=== PATIENT | male | born 1935 | race Caucasian/White ===

== ENCOUNTER → 2018-03-16 12:13 | Outpatient (CLI) | payer MEDICARE, SELFPAY ==
[2018-03-16 14:09] LABS: Amphetamine Urine VISTA NEGATIVE (<1000 ng/mL); Barbiturate Urine VISTA NEGATIVE (< 200 ng/mL); Benzodiazepine Urine VISTA NEGATIVE (< 200 ng/mL); Cocaine Urine VISTA NEGATIVE (< 300 ng/mL); Ecstacy Urine VISTA NEGATIVE (< 500 ng/mL); Methadone Urine VISTA NEGATIVE (< 300 ng/mL); PCP Urine VISTA NEGATIVE (< 25 ng/mL); THC Urine VISTA NEGATIVE (< 50 ng/mL); Vista UDS pH Range 6
== END ==
PROVIDERS: Family Provider Family Medicine; PCP Family Medicine; Visit Provider Family Medicine
DX: Z79.891 Long term (current) use of opiate analgesic (principal)
CPT/HCPCS: 80307

== ENCOUNTER → 2019-03-10 12:30 | Outpatient (CLI) | payer MEDICARE, SELFPAY ==
[2019-03-10 13:10] LABS: Cholesterol 141 mg/dL (200); High Density Lipoprotein 49 mg/dL; Triglycerides 159 mg/dL; Very Low Density Lipoprotein 32 mg/dL (5-40)
== END ==
PROVIDERS: Family Provider Family Medicine; PCP Family Medicine; Referring Provider Family Medicine; Visit Provider Family Medicine
DX: E78.5 Hyperlipidemia, unspecified (principal)
CPT/HCPCS: 80061

== ENCOUNTER 2019-10-30 16:06 | Emergency (ER) | payer MEDICARE, SELFPAY ==
[2019-10-30 16:07] VITALS: BP 145/76; PULSE 103; RESP 17; TEMP 36.8; O2SAT 96; BMI 21.2
--- NOTE | 2019-10-30 16:26 | CT_ITS ---
STUDY: CT BRAIN WITHOUT CONTRAST REASON FOR EXAM: Male, 84 years old. FALL WITH BUMP TO LEFT FOREHEAD, DEMENTIA RADIATION DOSAGE (If Supplied By Facility): CTDIvol = ( 44.99 ) mGy, DLP = ( 745.49 ) mGycm TECHNIQUE: Transaxial CT imaging of the brain was performed without administration of intravenous contrast material. Individualized dose optimization techniques were used for this CT. COMPARISON: No relevant priors. FINDINGS: There is mild subcutaneous edema overlying the left frontal calvarium. Normal calvarium. There is mild cerebral atrophy with widening of the extra-axial spaces and ventricular dilatation. Normal white matter tracts of the cerebral hemispheres. 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 Normal brainstem. There is mild cerebellar atrophy. There is no intracranial hemorrhage. There are no findings of an acute ischemic infarction. Normal visualized paranasal sinuses. CT/Brain/Head without Contrast IMPRESSION: Chronic involutional changes of the brain. No acute intracranial process. Electronically Signed: Nita Woodall MD at 16:48 EDT Tel , Service support ,
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
[2019-10-30] MEDS: Diphth,Pertuss(Acell),Tet Vac 0.5 ML Vial IM (16:44)
[2019-10-30] MEDS: Acetaminophen 500 MG Tablet 1000 MG PO (16:44)
--- NOTE | 2019-10-30 17:08 | ED.RN ---
PT RIGHT ARM WASHED WITH SHUR CLENS AND NORMAL SALINE, PATTED DRY. TINCTURE AND STERI STRIPS APPLIED TO SKIN TEAR. PT TOLERATED WELL. PT ARM THEN WRAPPED WITH TELFA, WRAP GAUZE AND PAPER TAPE. PT EDUCATED ON DRESSING CARE AT HOME, AND TO LEAVE STERI STRIPS IN PLACE UNTIL THEY BEGIN TO COME OFF ON THERE OWN. PT FOREHEAD ALSO CLEANSED WITH SHUR CLENS AND NORMAL SALINE. PATTED DRY. BACITRACIN APPLIED TO FOREHEAD AND THEN FOREHEAD WRAPPED WITH TELFA AND GAUZE WRAP AND PAPER TAPE.
[2019-10-30 17:27] VITALS: BP 155/83; PULSE 88; O2SAT 100
== END 2019-10-30 17:31 | disposition home or self-care (01) ==
PROVIDERS: Emergency Provider Emergency Medicine; PCP Family Medicine
DX: S00.81XA Abrasion of other part of head, initial encounter (principal); S80.211A Abrasion, right knee, initial encounter; S51.011A Laceration without foreign body of right elbow, initial encounter; W18.30XA Fall on same level, unspecified, initial encounter; Y93.02 Activity, running; Y92.410 Unspecified street and highway as the place of occurrence of the external cause; Y99.8 Other external cause status; F03.90 Unspecified dementia, unspecified severity, without behavioral disturbance, psychotic disturbance, mood disturbance, and anxiety; R21 Rash and other nonspecific skin eruption; Z23 Encounter for immunization; N40.0 Benign prostatic hyperplasia without lower urinary tract symptoms; I10 Essential (primary) hypertension; E78.5 Hyperlipidemia, unspecified; M54.16 Radiculopathy, lumbar region
CPT/HCPCS: 70450; 90471; 90715; 99282

== ENCOUNTER → 2019-12-20 10:53 | Outpatient (CLI) | payer MEDICARE, SELFPAY ==
[2019-12-20 11:13] LABS: Hematocrit 46.5 % (40-54); Hemoglobin 15.5 g/dL (13.0-16.5); Mean Corp Hgb Conc 33.3 g/dL (32-36); Mean Corpuscular Hgb 31.7 pg (27.0-32.0); Mean Corpuscular Volume 95.1 fL (80-94); Mean Platelet Vol. 10.1 fl (6.2-12.0); Platelet Count 237 K/mm3 (150-450); RBC Distribution Width SD 45.1 fl (35.1-43.9); Red Blood Count 4.89 M/mm3 (4.6-6.2); White Blood Count 8.7 K/mm3 (4.4-11.0)
[2019-12-20 11:33] LABS: ALB/GLOB Ratio 1.2 RATIO (0.9-2.4); AST(SGOT) 17 U/L (15-37); Alanine Aminotransfer ALT/SGPT 22 U/L (16-61); Albumin, Serum 3.5 g/dL (3.2-5.0); Alkaline Phosphatase 97 U/L (45-117); Anion Gap 6 (5-15); BUN 20 mg/dL (7-18); BUN/Creat Ratio 17.9 RATIO (10-20); Calcium,Total 8.7 mg/dL (8.5-10.1); Chloride 106 mmol/L (98-107); Creatinine, Serum 1.12 mg/dL (0.70-1.30); EST Glomerular Filtration Rate 67 mL/min (>60); Est Glom Filt Rate - Afr Amer 81 mL/min (>60); Glucose 101 mg/dL (74-106); Potassium 3.5 mmol/L (3.5-5.1); Protein, Total 6.5 g/dL (6.4-8.2); Sodium Level 141 mmol/L (136-145)
== END ==
PROVIDERS: PCP Family Medicine; Referring Provider Nurse Practitioner Family; Visit Provider Nurse Practitioner Family
DX: M51.16 Intervertebral disc disorders with radiculopathy, lumbar region (principal); M48.062 Spinal stenosis, lumbar region with neurogenic claudication; Z51.81 Encounter for therapeutic drug level monitoring
CPT/HCPCS: 80053; 85027

== ENCOUNTER → 2020-03-02 16:50 | Outpatient (CLI) | payer MEDICARE, SELFPAY ==
[2020-03-02 17:23] LABS: Amphetamine Urine VISTA NEGATIVE (<1000 ng/mL); Barbiturate Urine VISTA NEGATIVE (< 200 ng/mL); Benzodiazepine Urine VISTA NEGATIVE (< 200 ng/mL); Cocaine Urine VISTA NEGATIVE (< 300 ng/mL); Ecstacy Urine VISTA NEGATIVE (< 500 ng/mL); Methadone Urine VISTA NEGATIVE (< 300 ng/mL); PCP Urine VISTA NEGATIVE (< 25 ng/mL); THC Urine VISTA NEGATIVE (< 50 ng/mL); Vista UDS pH Range 6
== END ==
PROVIDERS: PCP Family Medicine; Referring Provider Family Medicine; Visit Provider Family Medicine
DX: Z79.891 Long term (current) use of opiate analgesic (principal); Z79.899 Other long term (current) drug therapy
CPT/HCPCS: 80307

== ENCOUNTER 2020-03-22 20:09 | Emergency (ER) | payer MEDICARE, SELFPAY ==
[2020-03-22 20:10] VITALS: BP 135/92; PULSE 78; RESP 16; TEMP 36.6; O2SAT 98; BMI 21.3
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
[2020-03-22] MEDS: Diphth,Pertuss(Acell),Tet Vac 0.5 ML Vial IM (21:33)
[2020-03-22 22:27] VITALS: BP 178/87; PULSE 81; RESP 18
== END 2020-03-22 22:29 | disposition home or self-care (01) ==
PROVIDERS: Emergency Provider Emergency Medicine; PCP Family Medicine
DX: S51.811A Laceration without foreign body of right forearm, initial encounter (principal); V43.52XA Car driver injured in collision with other type car in traffic accident, initial encounter; Y92.410 Unspecified street and highway as the place of occurrence of the external cause; E78.5 Hyperlipidemia, unspecified; F03.90 Unspecified dementia, unspecified severity, without behavioral disturbance, psychotic disturbance, mood disturbance, and anxiety; I10 Essential (primary) hypertension; N40.0 Benign prostatic hyperplasia without lower urinary tract symptoms; Z87.891 Personal history of nicotine dependence
CPT/HCPCS: 90471; 90715; 99284

== ENCOUNTER → 2020-08-13 10:06 | Outpatient (CLI) | payer MEDICARE, SELFPAY | PROVIDERS: PCP Family Medicine; Referring Provider Family Medicine; Visit Provider Family Medicine | DX: Z20.828 Contact with and (suspected) exposure to other viral communicable diseases (principal) | CPT/HCPCS: 87635; C9803; U0005; U0003 ==

== ENCOUNTER 2020-08-31 12:48 | Outpatient (RCR) | payer MEDICARE, SELFPAY | END 2020-08-31 23:59 | LOC: IMMUN 12:48 | PROVIDERS: PCP Family Medicine; Visit Provider Family Medicine | DX: Z23 Encounter for immunization (principal) | CPT/HCPCS: 0011A; 0012A; 91301 ==

== ENCOUNTER 2020-09-25 18:44 | Inpatient (IN) | payer MEDICARE, SELFPAY ==
[2020-09-25 18:46] VITALS: BP 116/72; PULSE 82; RESP 16; TEMP 36.2; O2SAT 96; BMI 20.4
[2020-09-25 18:50] VITALS: BP 116/72; PULSE 82; RESP 18; TEMP 36.2; O2SAT 96
--- NOTE | 2020-09-25 20:00 | ED.VIS.GEN ---
History of Present Illness Chief Complaint: ETOH Intox Informant: Patient, Family Narrative: Patient presents with family requesting detox from alcohol. Patient's is also here being seen for the same. Patient does have a history of dementia that family states has been getting worse lately. He does drink 3 Manhattan's a day. Patient states he does not remember the last time he went without drinking. He is never been through detox or withdrawal in the past. - Past Medical History (1) Benign prostatic hypertrophy Status: Chronic (2) Hyperlipidemia Status: Chronic (3) Hypertension Status: Chronic (4) Mild dementia Status: Chronic Past Medical History - Allergies and Home Meds Allergies/Adverse Reactions: Allergies No Known Allergies Allergy (Verified 03/22/20 20:14) Primary Care Physician: Ike Vaughn III, MD [Primary Care Provider] - Prior records reviewed: Yes Lives: Spouse/ Significant Other Smoking Status: Former smoker Review of Systems General: Denies: Chills, Fever Eyes: Denies: Visual changes - bilaterally ENT: Denies: Bilateral ear pain Cardiovascular: Denies: Chest pain, Palpitations Respiratory: Denies: Dyspnea, Cough Gastrointestinal: Denies: Abdominal pain, Vomiting, Diarrhea Genitourinary: Denies: Dysuria Musculoskeletal: Denies: Swelling, Extremity Pain Skin: Denies: Rash Neurological: Denies: Headache Hematologic: Denies: Easy bruising, Easy bleeding Allergy: Denies: Uticaria Physical Exam Vital Signs/Narrative: Vital Signs Temp Pulse Resp BP Pulse Ox 09/25/20 18:50 97.2 F L 82 18 116/72 96 09/25/20 18:46 97.2 F L 82 16 116/72 96 Inital Vital Signs reviewed: Yes General: Well nourished, Well developed Head: Normocephalic ENT: Moist mucous membranes Neck: Supple Cardiovascular: Regular rate, Regular rhythm Respiratory: No distress, CTA bilaterally Abdomen: Soft, Nontender, Normal bowel sounds Extremities: Nontender Skin: Normal color Neurological: Alert, Oriented x3, - - No focal neurologic deficits. Psychological: Normal affect Diagnostic/Tx/Re-eval Laboratory Results 09/25/20 09/25/20 09/25/20 20:06 20:06 20:06 WBC 8.4 RBC 4.64 Hgb 15.2 Hct 44.9 MCV 96.8 H MCH 32.8 H MCHC 33.9 RDW Std Deviation 44.1 H RDW Coeff of Shannon 12.5 Plt Count 203 MPV 9.9 Immature Gran % (Auto) 0.200 Neut % (Auto) 43.2 L Lymph % (Auto) 45.0 H Spencer % (Auto) 8.4 Eos % (Auto) 2.7 Baso % (Auto) 0.5 Absolute Neuts (auto) 3.6 Absolute Lymphs (auto) 3.79 Nucleated RBC % 0 Sodium 140 Potassium 3.3 L Chloride 103 Carbon Dioxide 31.0 Anion Gap 6 BUN 21 H Creatinine 1.27 Estim Creat Clear Calc 35.15 Est GFR (MDRD) Af Amer 70 Est GFR (MDRD) Non-Af 57 L BUN/Creatinine Ratio 16.5 Glucose 73 L Calcium 8.8 Total Bilirubin 1.00 AST 19 ALT 19 Alkaline Phosphatase 115 Total Protein 6.8 Albumin 3.9 Globulin 2.9 Albumin/Globulin Ratio 1.3 Ur Drug Screen Comment Ethyl Alcohol < 3.0 09/25/20 20:20 WBC RBC Hgb Hct MCV MCH MCHC RDW Std Deviation RDW Coeff of Shannon Plt Count MPV Immature Gran % (Auto) Neut % (Auto) Lymph % (Auto) Spencer % (Auto) Eos % (Auto) Baso % (Auto) Absolute Neuts (auto) Absolute Lymphs (auto) Nucleated RBC % Sodium Potassium Chloride Carbon Dioxide Anion Gap BUN Creatinine Estim Creat Clear Calc Est GFR (MDRD) Af Amer Est GFR (MDRD) Non-Af BUN/Creatinine Ratio Glucose Calcium Total Bilirubin AST ALT Alkaline Phosphatase Total Protein Albumin Globulin Albumin/Globulin Ratio Ur Drug Screen Comment Ethyl Alcohol - Medical Decision Making Patient evaluated with daughter at bedside. He does have mild to moderate dementia. is being seen for alcohol intoxication and admitted for detox. Patient has agreed to admission for detox as well. Addiction medicine labs are ordered and patient is discussed with hospitalist for admission. ED Disposition - Plan for ED Patient: Disposition: Acute Care Hospital [facility] Diagnosis: Desire for detoxification Referrals: Ike Vaughn III, MD [Primary Care Provider] -
[2020-09-25 20:21] LABS: Absolute Lymphocyte Count 3.79 X10^3/uL (0.83-4.51); Absolute Neutrophil Count 3.6 X10^3/uL (2.0-7.7); Basophil# 0.04 X10^3/uL; Basophil% 0.5 % (0-1); Eosinophil# 0.23 X10^3/uL; Eosinophils% 2.7 % (0-5); Hematocrit 44.9 % (40-54); Hemoglobin 15.2 g/dL (13.0-16.5); Lymphocyte # 3.79 X10^3/ul (4.0); Mean Corp Hgb Conc 33.9 g/dL (32-36); Mean Corpuscular Hgb 32.8 pg (27.0-32.0); Mean Corpuscular Volume 96.8 fL (80-94); Mean Platelet Vol. 9.9 fl (6.2-12.0); Monocyte# 0.71 X10^3/uL; Monocyte% 8.4 % (0-10); NRBC Flagged by Analyzer 0 % (0-5); Neutrophil # 3.64 X10^3/uL (2.7-7.7); Neutrophil % 43.2 % (47-70); Platelet Count 203 K/mm3 (150-450); RBC Distribution Width CV 12.5 % (11.6-14.6); RBC Distribution Width SD 44.1 fl (35.1-43.9); Red Blood Count 4.64 M/mm3 (4.6-6.2); White Blood Count 8.4 K/mm3 (4.4-11.0)
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
[2020-09-25 20:34] LABS: Alcohol, Blood (Medical)-Serum < 3.0 mg/dL
[2020-09-25 20:39] LABS: ALB/GLOB Ratio 1.3 RATIO (0.9-2.4); AST(SGOT) 19 U/L (15-37); Alanine Aminotransfer ALT/SGPT 19 U/L (16-61); Albumin, Serum 3.9 g/dL (3.2-5.0); Alkaline Phosphatase 115 U/L (45-117); Anion Gap 6 (5-15); BUN 21 mg/dL (7-18); BUN/Creat Ratio 16.5 RATIO (10-20); Calcium,Total 8.8 mg/dL (8.5-10.1); Chloride 103 mmol/L (98-107); Creatinine, Serum 1.27 mg/dL (0.70-1.30); EST Glomerular Filtration Rate 57 mL/min (>60); Est Glom Filt Rate - Afr Amer 70 mL/min (>60); Estimated Creatinine Clearance 35.15 ml/min; Globulin 2.9 g/dL (2.2-4.2); Glucose 73 mg/dL (74-106); Potassium 3.3 mmol/L (3.5-5.1); Protein, Total 6.8 g/dL (6.4-8.2); Sodium Level 140 mmol/L (136-145)
[2020-09-25 21:11] LABS: Amphetamine Urine VISTA NEGATIVE (<1000 ng/mL); Barbiturate Urine VISTA NEGATIVE (< 200 ng/mL); Benzodiazepine Urine VISTA NEGATIVE (< 200 ng/mL); Cocaine Urine VISTA NEGATIVE (< 300 ng/mL); Ecstacy Urine VISTA NEGATIVE (< 500 ng/mL); Methadone Urine VISTA NEGATIVE (< 300 ng/mL); PCP Urine VISTA NEGATIVE (< 25 ng/mL); THC Urine VISTA NEGATIVE (< 50 ng/mL); Vista UDS pH Range 5
[2020-09-25 21:44] VITALS: BP 115/78; PULSE 78; RESP 16; TEMP 36.6; O2SAT 97
[2020-09-25 22:34] VITALS: BP 147/74; PULSE 72; RESP 16; TEMP 35.9; O2SAT 100; BMI 19.8; BMI 19.9
[2020-09-25] MEDS: Phenobarbital 32.4 MG Tablet 64.8 MG PO (22:50)
[2020-09-25 22:57] LABS: Magnesium 2.1 mg/dL (1.6-2.6); Phosphorus 3.6 mg/dL (2.5-4.9)
[2020-09-25] MEDS: Lactated Ringers 1,000 ML 125 ML IV (23:00)
[2020-09-25 23:24] VITALS: O2SAT 98
[2020-09-26] VITALS (8 sets, daily range): BP systolic 101–139; BP diastolic 59–71; PULSE 68–84; RESP 16–18; TEMP 36.1–36.9; O2SAT 95–97
[2020-09-26] MEDS: Potassium Chloride Oral Tablet 20 MEQ 40 MEQ PO (00:03)
[2020-09-26] MEDS: Atorvastatin Calcium 20 MG Tablet PO ×2 (00:03→21:19)
--- NOTE | 2020-09-26 05:55 | EKG12_ITS ---
Test Reason : AM EKG Blood Pressure : / mmHG Vent. Rate : 074 BPM Atrial Rate : 074 BPM P-R Int : 162 ms QRS Dur : 090 ms QT Int : 450 ms P-R-T Axes : 034 043 053 degrees QTc Int : 499 ms Normal sinus rhythm Prolonged QT Abnormal ECG When compared with ECG of 27-FEB-2005 04:52, T wave inversion no longer evident in Inferior leads Nonspecific T wave abnormality no longer evident in Lateral leads QT has lengthened Confirmed by VINCENT HUA, SEGUNDO ([id number]), material expeditor MATT TILLEY ([id number]) on 09/26/2020 12:57:00 P M Referred By: SHEILA Confirmed By:OLIVE KAUR MD
[2020-09-26] MEDS: Phenobarbital 32.4 MG Tablet 64.8 MG PO (06:56)
[2020-09-26 08:05] LABS: ALB/GLOB Ratio 1.2 RATIO (0.9-2.4); AST(SGOT) 17 U/L (15-37); Alanine Aminotransfer ALT/SGPT 14 U/L (16-61); Albumin, Serum 3.1 g/dL (3.2-5.0); Alkaline Phosphatase 94 U/L (45-117); Anion Gap 8 (5-15); BUN 21 mg/dL (7-18); BUN/Creat Ratio 18.9 RATIO (10-20); Calcium,Total 8.4 mg/dL (8.5-10.1); Chloride 107 mmol/L (98-107); Creatinine, Serum 1.11 mg/dL (0.70-1.30); EST Glomerular Filtration Rate 67 mL/min (>60); Est Glom Filt Rate - Afr Amer 81 mL/min (>60); Globulin 2.5 g/dL (2.2-4.2); Glucose 67 mg/dL (74-106); Potassium 3.6 mmol/L (3.5-5.1); Protein, Total 5.6 g/dL (6.4-8.2); Sodium Level 140 mmol/L (136-145)
--- NOTE | 2020-09-26 08:08 | PCM.PN.HOSP ---
Patient Problems: Active and Suspected Problems Desire for detoxification (Acute) Reason for Visit: Follow-up for acute alcohol withdrawal. Objective: Patient has mild dementia. Patient is not clear why he is in being admitted. He denies any obvious symptoms of alcohol withdrawal including tremors, restlessness, anxiety. He states he drinks about 1-2 bottles of beer once in 2 to 3 days and 2-3 shots of whiskey almost every day. His is also admitted for similar alcohol withdrawal. Physical exam General: Alert, Oriented x3, Cooperative HEENT: Atraumatic, PERRLA, EOMI, Normocephalic Oral: No Gingival or Mucosal Lesions/ Ulcerations Neck: Supple, No JVD, Negative Carotid Bruits Lungs: Air entry diminished in bilateral lung bases. No crepitation/rhonchi Cardiovascular: Regular rate, Regular Rhythm, Normal S1, Normal S2, No murmurs Abdomen: Bowel Sounds Present, Soft, Non Tender, Non-Distended : No renal angle tenderness. No suprapubic tenderness. Extremities: No edema, Capillary Refill Less than 3 Seconds Skin: No rashes, No breakdown Musculoskeletal: No Tenderness to Palpation of Joints or Extremities Neurological: Cranial nerves II-XII grossly intact, Deep Tendon Reflexes 2+/4 and Symmetrical, Neuro grossly intact. No tremors Psych/Mental Status: Normal Affect, Appropriate. Vitals/I&O's: Vital Signs Temp Pulse Resp BP Pulse Ox 97 F L 69 16 139/71 H 96 09/26/20 04:30 09/26/20 04:30 09/26/20 04:30 09/26/20 04:30 09/26/20 04:30 Oxygen Delivery Method Room Air Weight: 123 lb 0.287 oz Body Mass Index (BMI) 19.8 Intake and Output for Last 24 Hours 09/24/20 09/25/20 09/26/20 23:59 23:59 23:59 Intake Total 1151.67 / 1151.67 Balance 1151.67 / 1151.67 Laboratory Results 09/25/20 20:06: WBC 8.4, RBC 4.64, Hgb 15.2, Hct 44.9, MCV 96.8 H, MCH 32.8 H, MCHC 33.9, RDW Std Deviation 44.1 H, RDW Coeff of Shannon 12.5, Plt Count 203, MPV 9.9, Immature Gran % (Auto) 0.200, Neut % (Auto) 43.2 L, Lymph % (Auto) 45.0 H, Worth % (Auto) 8.4, Eos % (Auto) 2.7, Baso % (Auto) 0.5, Absolute Neuts (auto) 3.6, Absolute Lymphs (auto) 3.79, Nucleated RBC % 0 09/25/20 20:06: Sodium 140, Potassium 3.3 L, Chloride 103, Carbon Dioxide 31.0, Anion Gap 6, BUN 21 H, Creatinine 1.27, Estim Creat Clear Calc 35.15, Est GFR (MDRD) Af Amer 70, Est GFR (MDRD) Non-Af 57 L, BUN/Creatinine Ratio 16.5, Glucose 73 L, Calcium 8.8, Total Bilirubin 1.00, AST 19, ALT 19, Alkaline Phosphatase 115, Total Protein 6.8, Albumin 3.9, Globulin 2.9, Albumin/Globulin Ratio 1.3 09/25/20 20:06: Ethyl Alcohol < 3.0 09/25/20 20:06: Phosphorus 3.6, Magnesium 2.1 09/25/20 20:20: Urine Opiates Screen NEGATIVE, Urine Methadone Screen NEGATIVE, Ur Barbiturates Screen NEGATIVE, Ur Phencyclidine Scrn NEGATIVE, Ur Amphetamines Screen NEGATIVE, U Methamphetamin-MDMA NEGATIVE, U Benzodiazepines Scrn NEGATIVE, Urine Cocaine Screen NEGATIVE, U Cannabinoids Screen NEGATIVE, Ur Drug Screen Comment 09/26/20 06:24: Sodium 140, Potassium 3.6, Chloride 107, Carbon Dioxide 25.0, Anion Gap 8, BUN 21 H, Creatinine 1.11, Estim Creat Clear Calc 39.10, Est GFR (MDRD) Af Amer 81, Est GFR (MDRD) Non-Af 67, BUN/Creatinine Ratio 18.9, Glucose 67 L, Calcium 8.4 L, Total Bilirubin 1.40 H, AST 17, ALT 14 L, Alkaline Phosphatase 94, Total Protein 5.6 L, Albumin 3.1 L, Globulin 2.5, Albumin/Globulin Ratio 1.2 Current Medications Acetaminophen (Acetaminophen 325 Mg Tablet) 650 mg PO Q4H PRN PRN PRN Reason: Temp > 100.4 F Al Hydroxide/Mg Hydroxide (Mag Hydrox/Al Hydrox/Simeth 30 Ml Udc) 30 ml PO Q6H PRN PRN PRN Reason: dyspesia Albuterol Sulfate (Albuterol 2.5 Mg/3 Ml Vial.Neb.) 2.5 mg INHALATION Q2H PRN PRN PRN Reason: Dyspnea, wheezing Atorvastatin Calcium (Atorvastatin Calcium 20 Mg Tablet) 20 mg PO QHS [facility] Last Admin: 09/26/20 00:03 Dose: 20 mg Documented by: Bisacodyl (Bisacodyl 10 Mg Suppository) 10 mg RC DAILY PRN PRN Reason: Constipation Dicyclomine HCl (Dicyclomine 10 Mg Capsule) 20 mg PO Q6H PRN PRN PRN Reason: abdominal discomfort Donepezil HCl (Donepezil Hcl 10 Mg Tablet) 10 mg PO DAILY [facility] Enoxaparin Sodium (Enoxaparin 40 Mg/0.4 Ml Syringe) 40 mg SC DAILY [facility] Finasteride (Finasteride 5 Mg Tablet) 5 mg PO DAILY [facility] Folic Acid (Folic Acid 1 Mg Tablet) 1 mg PO DAILY@0800 [facility] Gabapentin (Gabapentin 300 Mg Capsule) 200 mg PO Q8H PRN PRN PRN Reason: moderate to severe anxiety Hydralazine HCl (Hydralazine 20 Mg/Ml Vial) 10 mg IV Q4H PRN PRN PRN Reason: SBP > 160 Hydrochlorothiazide (Hydrochlorothiazide 12.5mg) 12.5 mg PO DAILY [facility] Hydroxyzine Pamoate (Hydroxyzine Suzanne 25 Mg Capsule) 50 mg PO Q4H PRN PRN PRN Reason: mild anxiety Lisinopril (Lisinopril 10 Mg Tablet) 10 mg PO DAILY [facility] Loperamide HCl (Loperamide 2 Mg Capsule) 2 mg PO Q4H PRN PRN PRN Reason: LOOSE STOOLS Losartan Potassium (Losartan Potassium 25 Mg Tablet) 25 mg PO DAILY [facility] Meloxicam (Meloxicam 15 Mg Tablet) 15 mg PO DAILY [facility] Ondansetron HCl (Ondansetron 8 Mg Tablet) 8 mg PO Q8H PRN PRN PRN Reason: NAUSEA Phenobarbital (Phenobarbital 32.4 Mg Tablet) 97.2 mg PO Q4H [facility]; Taper Stop: 09/30/20 06:59 Last Admin: 09/26/20 06:56 Dose: 97.2 mg Documented by: Senna (Senna Tablet) 2 tablet PO QHS PRN PRN Reason: Constipation Tamsulosin HCl (Tamsulosin Hcl 0.4 Mg Capsule) 0.4 mg PO DINNER ANA Thiamine HCl (Thiamine Hydrochloride 100 Mg Tablet) 100 mg PO DAILYCM ANA Trazodone HCl (Trazodone 50 Mg Tablet) 50 mg PO QHS PRN PRN Reason: INSOMNIA STROKE Vital Signs/Narrative: Vital Signs Temp Pulse Resp BP Pulse Ox 09/26/20 04:30 97 F L 69 16 139/71 H 96 Medical Necessity - Tobacco Use Smoking Status: Former smoker Tobacco Use: Non-smoker Assessment/Plan All Active Problems Desire for detoxification (Acute) The patient is a 85 y/o M with multiple comorbidities including dementia admitted with chronic alcohol use and dependence and alcohol detox and stabilization for alcohol withdrawal symptoms 1. 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 No tachycardia or high blood pressure. No tachypnea. Case management on consult. K3.6. Magnesium 2.1 and phosphorus 3.6. ALT and AST are on the lower side. Total bilirubin 1.4. A/G ratio 1.2. 2. Dementia, unclear type with unclear behavioral disturbance history: Continue patient home Aricept regimen with a.m. continue fall and aspiration precaution. 3. Hypertension: Continue home regimen including lisinopril, losartan, hydrochlorothiazide with hold parameters as needed, PRN hydralazine. 4. Hyperlipidemia: Continue home statin regimen. 5. Anxiety and depression, insomnia: Stable. On trazodone 6. BPH: We will continue patient home Proscar and Flomax regimen. 7. Former tobacco use: Encourage continued tobacco cessation. 8. DVT prophylaxis: SCDs, Lovenox. Inpatient E&M: 62494 Subs Hosp L2
[2020-09-26] MEDS: Thiamine Hydrochloride 100 MG Tablet PO (09:28)
[2020-09-26] MEDS: hydroCHLOROthiazide 12.5mg 12.5 MG PO (09:28)
[2020-09-26] MEDS: Meloxicam 15 MG Tablet PO (09:28)
[2020-09-26] MEDS: Donepezil HCl 10 MG Tablet PO (09:28)
[2020-09-26] MEDS: Losartan Potassium 25 MG Tablet PO (09:28)
[2020-09-26] MEDS: Lisinopril 10 MG Tablet PO (09:28)
[2020-09-26] MEDS: Folic Acid 1 MG Tablet PO (09:28)
[2020-09-26] MEDS: Enoxaparin 40 MG/0.4 ML Syringe SC (09:29)
[2020-09-26] MEDS: Finasteride 5 MG Tablet PO (09:29)
--- NOTE | 2020-09-26 10:14 | CASEMGMT ---
Patient is listed as a RAMP patient. However, he has Dementia. He has been telling RN and HABILITATION WORKER that he does not know why he is here. He wants to leave today as it is going to be a nice day and he wants to go for a run. Patient also told Dr Woodruff this am that he does nor know why he is here. Alcohol or drug rehab is not appropriate for patient. LORNE did talk with Deandra from [facility] and she agreed treatment is not appropriate for a Dementia patient. Therefore, Deandra is not going to see patient. PT/OT has been ordered to see how well patient gets around. Yen COE BELT TURNER
--- NOTE | 2020-09-26 11:47 | CASEMGMT ---
Patient does not have a Healthcare Power of Rug Clipper (HCPOA) and Healthcare Living Will. They are not on file at [facility]. Per MD note patient's , Helene is his HCPOA. Yen COE MSW
--- NOTE | 2020-09-26 15:09 | CASEMGMT ---
LORNE spoke with patient's daughter, Bessy. LORNE introduced self and role at [facility]. Bessy asked what the options are for her parents. LORNE explained SW cannot answer regarding her mom as she is on another floor. SW told her that therapy just saw patient and he is independent. SW told her that his insurance is not going to approve him to go to a longterm. In order to get insurance to approve a longterm the patient has to have skilled needs such as extensive PT/OT or IV medication for example. SW said he does not need either of these nor does he have any other skilled needs. SW explained he could go to a longterm private pay and pricing in this area ranges from $220-$300 per day. She said assisted living really would not be much better as her uncle is in assisted living and he gets on their bus and goes to [employer] to buy his alcohol. She then re-iterated that there really are no options. LORNE said at this point home is the only option. SW explained with patient's dementia he is not going to understand treatment so it likely would not be helpful. He does not even know why he is here even though everyone tells him every time they go into the room. LORNE told her about Adult Protective Services and that SW will likely be calling them when patient is discharged. She said her parents will lie to them and go back to their regular ways. LORNE expressed understanding with her frustration. LORNE did let her know that per the SW for her mom Dr Bernard called their PCP and expressed her concerns. She thanked LORNE for talking with her. She would like for Carline Mcdaniel (LORNE on MS3) to call her regarding her mom. LORNE called Diana Mcdaniel and left her a voice mail with this information. Plan: Likely home with . LORNE plans on calling Adult Protective Services at discharge. Yen COE MRI ASSISTANT
[2020-09-26] MEDS: Tamsulosin HCl 0.4 MG Capsule PO (18:04)
[2020-09-27 02:00] VITALS: BP 115/71; PULSE 73; RESP 16; TEMP 37.1; O2SAT 93
--- NOTE | 2020-09-27 05:55 | EKG12_ITS ---
Test Reason : AM EKG Blood Pressure : / mmHG Vent. Rate : 063 BPM Atrial Rate : 063 BPM P-R Int : 156 ms QRS Dur : 088 ms QT Int : 436 ms P-R-T Axes : 045 042 072 degrees QTc Int : 446 ms Normal sinus rhythm Normal ECG When compared with ECG of 26-SEP-2020 05:18, QT has shortened Confirmed by SHEYLA HUA, NABILA ([id number]), supervising editor trailer MATT TILLEY ([id number]) on 10/02/2020 1:05:38 PM Referred By: DR DANGELO Confirmed By:NABILA CARRION MD
[2020-09-27 07:04] VITALS: O2SAT 96
[2020-09-27 08:00] VITALS: BP 104/69; PULSE 72; RESP 18; TEMP 36.6; O2SAT 94
[2020-09-27] MEDS: Enoxaparin 40 MG/0.4 ML Syringe SC (09:17)
[2020-09-27] MEDS: Thiamine Hydrochloride 100 MG Tablet PO (09:18)
[2020-09-27] MEDS: Folic Acid 1 MG Tablet PO (09:18)
[2020-09-27] MEDS: Donepezil HCl 10 MG Tablet PO (09:18)
[2020-09-27] MEDS: Lisinopril 10 MG Tablet PO (09:19)
[2020-09-27] MEDS: hydroCHLOROthiazide 12.5mg 12.5 MG PO (09:19)
[2020-09-27] MEDS: Finasteride 5 MG Tablet PO (09:19)
[2020-09-27] MEDS: Potassium Chloride Oral Tablet 20 MEQ 40 MEQ PO (09:26)
--- NOTE | 2020-09-27 09:40 | CASEMGMT ---
SW received a note that patient's daughter wanted to know if patient could get his second COVID vaccine tomorrow. He had his first one at [facility] and is due for his 2nd one tomorrow. LORNE spoke with head charger Yuliya and it was arranged for patient to have his 2nd vaccine tomorrow. Yen COE MSW
[2020-09-27] MEDS: Phenobarbital 32.4 MG Tablet 64.8 MG PO ×4 (11:51→22:09)
[2020-09-27 14:00] VITALS: BP 123/65; PULSE 75; RESP 18; TEMP 36.7; O2SAT 95
--- NOTE | 2020-09-27 15:32 | PCM.PN.HOSP ---
Patient Problems: Active and Suspected Problems Desire for detoxification (Acute) Reason for Visit: Follow-up for acute alcohol withdrawal with dementia Objective: Patient has recent retrograde and anterograde amnesia and dementia. He has been drinking alcohol along with his . He states his serves the alcohol. His is also admitted. Physical exam General: Awake, oriented x3, Cooperative, BMI 19.9 kg/m? HEENT: Atraumatic, PERRLA, EOMI, Normocephalic Oral: No Gingival or Mucosal Lesions/ Ulcerations Neck: Supple, No JVD, Negative Carotid Bruits Lungs: Air entry diminished in bilateral lung bases. No crepitation/rhonchi Cardiovascular: Regular rate, Regular Rhythm, Normal S1, Normal S2, No murmurs Abdomen: Bowel Sounds Present, Soft, Non Tender, Non-Distended : No renal angle tenderness. No suprapubic tenderness. Extremities: No edema, Capillary Refill Less than 3 Seconds Skin: No rashes, No breakdown Musculoskeletal: Mild muscle atrophy of extremities. No Tenderness to Palpation of Joints or Extremities Neurological: Cranial nerves II-XII grossly intact, Deep Tendon Reflexes 2+/4 and Symmetrical, Neuro grossly intact Psych/Mental Status: Forgetfulness, dementia. Vitals/I&O's: Vital Signs Temp Pulse Resp BP Pulse Ox 98.1 F 75 18 123/65 H 95 09/27/20 14:00 09/27/20 14:00 09/27/20 14:00 09/27/20 14:00 09/27/20 14:00 Oxygen Delivery Method Room Air Weight: 123 lb 0.287 oz Body Mass Index (BMI) 19.8 Intake and Output for Last 24 Hours 09/25/20 09/26/20 09/27/20 23:59 23:59 23:59 Intake Total 1950.67 / 1950. Balance / Current Medications Acetaminophen (Acetaminophen 325 Mg Tablet) 650 mg PO Q4H PRN PRN PRN Reason: Temp > 100.4 F Al Hydroxide/Mg Hydroxide (Mag Hydrox/Al Hydrox/Simeth 30 Ml Udc) 30 ml PO Q6H PRN PRN PRN Reason: dyspesia Albuterol Sulfate (Albuterol 2.5 Mg/3 Ml Vial.Neb.) 2.5 mg INHALATION Q2H PRN PRN PRN Reason: Dyspnea, wheezing Atorvastatin Calcium (Atorvastatin Calcium 20 Mg Tablet) 20 mg PO QHS [facility] Last Admin: 09/26/20 21:19 Dose: 20 mg Documented by: Bisacodyl (Bisacodyl 10 Mg Suppository) 10 mg RC DAILY PRN PRN Reason: Constipation Dicyclomine HCl (Dicyclomine 10 Mg Capsule) 20 mg PO Q6H PRN PRN PRN Reason: abdominal discomfort Donepezil HCl (Donepezil Hcl 10 Mg Tablet) 10 mg PO DAILY [facility] Last Admin: 09/27/20 09:18 Dose: 10 mg Documented by: Enoxaparin Sodium (Enoxaparin 40 Mg/0.4 Ml Syringe) 40 mg SC DAILY [facility] Last Admin: 09/27/20 09:17 Dose: 40 mg Documented by: Finasteride (Finasteride 5 Mg Tablet) 5 mg PO DAILY [facility] Last Admin: 09/27/20 09:19 Dose: 5 mg Documented by: Folic Acid (Folic Acid 1 Mg Tablet) 1 mg PO DAILY@0800 [facility] Last Admin: 09/27/20 09:18 Dose: 1 mg Documented by: Gabapentin (Gabapentin 300 Mg Capsule) 200 mg PO Q8H PRN PRN PRN Reason: moderate to severe anxiety Hydralazine HCl (Hydralazine 20 Mg/Ml Vial) 10 mg IV Q4H PRN PRN PRN Reason: SBP > 180 Hydrochlorothiazide (Hydrochlorothiazide 12.5mg) 12.5 mg PO DAILY [facility] Last Admin: 09/27/20 09:19 Dose: 12.5 mg Documented by: Hydroxyzine Pamoate (Hydroxyzine Suzanne 25 Mg Capsule) 50 mg PO Q4H PRN PRN PRN Reason: mild anxiety Lisinopril (Lisinopril 10 Mg Tablet) 10 mg PO DAILY [facility] Last Admin: 09/27/20 09:19 Dose: 10 mg Documented by: Loperamide HCl (Loperamide 2 Mg Capsule) 2 mg PO Q4H PRN PRN PRN Reason: LOOSE STOOLS Nutritional Formula (Lactose Free) (Ensure Enlive 120 Ml Liquid) 120 ml PO 4X/DAY [facility] Last Admin: 09/27/20 11:51 Dose: 120 ml Documented by: Ondansetron HCl (Ondansetron 8 Mg Tablet) 8 mg PO Q8H PRN PRN PRN Reason: NAUSEA Phenobarbital (Phenobarbital 32.4 Mg Tablet) 64.8 mg PO Q4H [facility]; Taper Stop: 09/30/20 06:59 Last Admin: 09/27/20 11:51 Dose: 64.8 mg Documented by: Potassium Chloride (Potassium Chloride Oral Tablet 20 Meq) 40 meq PO DAILYCM [facility] Stop: 09/29/20 08:01 Last Admin: 09/27/20 09:26 Dose: 40 meq Documented by: Senna (Senna Tablet) 2 tablet PO QHS PRN PRN Reason: Constipation Tamsulosin HCl (Tamsulosin Hcl 0.4 Mg Capsule) 0.4 mg PO DINNER [facility] Last Admin: 09/26/20 18:04 Dose: 0.4 mg Documented by: Thiamine HCl ([facility]) [facility] Admin: 09/27/20 09:18 Dose: 100 mg Documented by: Trazodone HCl (Trazodone 50 Mg Tablet) 50 mg PO QHS PRN PRN Reason: INSOMNIA STROKE Vital Signs/Narrative: Vital Signs Temp Pulse Resp BP Pulse Ox 09/27/20 14:00 98.1 F 75 18 123/65 H 95 Medical Necessity - Tobacco Use Smoking Status: Former smoker Tobacco Use: Non-smoker Assessment/Plan All Active Problems Desire for detoxification (Acute) The patient is a 85 y/o M with multiple comorbidities including dementia admitted with chronic alcohol use and dependence and alcohol detox and stabilization for alcohol withdrawal symptoms 1. Chronic alcohol use and dependence with mild acute alcohol withdrawal: His JAZZ SINGER score is 2 mainly for disoriented to date. No tachycardia or high blood pressure. No tachypnea. Case management on consult. K3.6. Magnesium 2.1 and phosphorus 3.6. ALT and AST are on the lower side. Total bilirubin 1.4. A/G ratio 1.2. 09/27: Blood pressure and heart rate are in normal range. Patient not having significant alcohol withdrawal syndrome or symptoms. 2. Dementia, unclear type with unclear behavioral disturbance history: Continue patient home Aricept regimen with a.m. continue fall and aspiration precaution. 09/27: My colleague talked to the patient's daughter and she wants patient and his to be discharged on the same time as she is also admitted. Difficult to ascertain continuation of alcohol withdrawal as patient has dementia. 3. Hypertension: Continue home regimen including lisinopril, losartan, hydrochlorothiazide with hold parameters as needed, PRN hydralazine. 4. Hyperlipidemia: Continue home statin regimen. 5. Anxiety and depression, insomnia: Stable. On trazodone 6. BPH: will continue patient home Proscar and Flomax regimen. 7. Former tobacco use: Encourage continued tobacco cessation. 8. DVT prophylaxis: SCDs, Lovenox. Inpatient E&M: 54164 Subs Hosp L2
[2020-09-27] MEDS: Tamsulosin HCl 0.4 MG Capsule PO (15:56)
[2020-09-27 20:38] VITALS: BP 115/60; PULSE 70; RESP 18; TEMP 36.9; O2SAT 95
[2020-09-27] MEDS: Atorvastatin Calcium 20 MG Tablet PO (20:47)
[2020-09-27] MEDS: traZODone 50 MG Tablet PO (22:13)
[2020-09-28 03:32] VITALS: BP 108/53; PULSE 78; RESP 18; TEMP 36.9; O2SAT 94
[2020-09-28] MEDS: Phenobarbital 32.4 MG Tablet 64.8 MG PO ×3 (03:33→12:39)
[2020-09-28 09:32] VITALS: BP 89/49; PULSE 69; RESP 18; TEMP 36.5; O2SAT 96
[2020-09-28] MEDS: Thiamine Hydrochloride 100 MG Tablet PO (09:49)
[2020-09-28] MEDS: Donepezil HCl 10 MG Tablet PO (09:49)
[2020-09-28] MEDS: Enoxaparin 40 MG/0.4 ML Syringe SC (09:49)
[2020-09-28] MEDS: Finasteride 5 MG Tablet PO (09:49)
[2020-09-28] MEDS: Folic Acid 1 MG Tablet PO (09:49)
[2020-09-28] MEDS: Potassium Chloride Oral Tablet 20 MEQ 40 MEQ PO (09:49)
[2020-09-28 11:30] VITALS: BP 88/54; PULSE 65; RESP 18; TEMP 36.8; O2SAT 98
--- NOTE | 2020-09-28 11:30 | DCINST_ITS ---
- Discharge Diagnoses Current Active Problems: Current Active and Chronic Problems Mild dementia (Chronic) Desire for detoxification (Acute) Alcohol abuse (Chronic) Anxiety and depression (Chronic) Former tobacco use (Chronic) Benign prostatic hypertrophy (Chronic) Hypertension (Chronic) Hyperlipidemia (Chronic) You will use the following diet at home:: Regular Your food should be the consistency of: Regular Your liquids should be the consistency of: Regular/Thin Discharge Activity: May Not Drive Weight Bearing Status: Weight bearing as tolerated Call your doctor if you observe: Coldness, Increased Pain, Numbness or Tingling, Change in Color, Inability to urinate, Shortness of breath, Dizziness, Fainting spells, Swelling in the ankles, Chest pain, Prolonged hiccoughing, Increased pal pitations (irregular heartbeat), Calf discomfort, Uncontrolled pain Allergies/Adverse Reactions: Allergies No Known Allergies Allergy (Verified 03/22/20 20:14) Medications to take at Discharge Atorvastatin Calcium [Lipitor] 20 mg PO QHS 01/18/16 Losartan Potassium 25 mg PO DAILY 01/18/16 Saw [place] 160 mg PO DAILY 01/18/16 Donepezil HCl [Aricept] 10 mg PO DAILY 10/30/19 Finasteride [Proscar] 5 mg PO DAILY 10/30/19 Meloxicam [Mobic] 15 mg PO DAILY 10/30/19 Tamsulosin HCl 0.4 mg PO DINNER 10/30/19 Temazepam 30 mg PO DAILY 09/25/20 Folic Acid 1 mg PO DAILY@0800 #30 tab 09/28/20 Potassium Chloride Oral Tablet [K-Dur] 20 meq PO DAILYCM #5 tab 09/28/20 Thiamine Hydrochloride [Vitamin B1] 100 mg PO DAILYCM #30 tab 09/28/20 The following prescriptions were given: Folic Acid 1 mg PO DAILY@0800 #30 tab Transmission Status: Pending to [facility] Potassium Chloride Oral Tablet [K-Dur] 20 meq PO DAILYCM #5 tab Transmission Status: Pending to [facility] Thiamine Hydrochloride [Vitamin B1] 100 mg PO DAILYCM #30 tab Transmission Status: Pending to [facility] Primary Care Physician: Ike Vaughn III, MD [Primary Care Provider] - Test Results: Test results from this visit will be discussed in further detail at your follow- up appointment, if applicable. Please Follow Up With: Ike Vaughn III, MD When: In 1 to 2 weeks
[2020-09-28 11:35] VITALS: BP 101/58; PULSE 68; RESP 18; TEMP 36.8; O2SAT 96
--- NOTE | 2020-09-28 11:50 | DS.PCM_ITS ---
Discharge Date and Diagnosis - Problem List Patient Problems: Active and Suspected Problems Desire for detoxification (Acute) Date of Admission: 09/25/20 Date of Discharge: 09/28/20 - Primary Discharge Diagnosis Acute Problems: Active Problems Desire for detoxification (Acute) - Secondary Discharge Diagnosis Chronic Problems: Chronic Problems Mild dementia (Chronic) Alcohol abuse (Chronic) Anxiety and depression (Chronic) Former tobacco use (Chronic) Left lumbar radiculopathy (Chronic) Benign prostatic hypertrophy (Chronic) Hypertension (Chronic) Hyperlipidemia (Chronic) Hospital Course and Treatment Summary of Care Provided: [] The patient is a 85 y/o M with multiple comorbidities including dementia admitt ed with chronic alcohol use and dependence and alcohol detox and stabilization for alcohol withdrawal symptoms 1. Chronic alcohol use and dependence with mild acute alcohol withdrawal: His ESCORT PATIENTS score is 2 mainly for disoriented to date. No tachycardia or high blood pressure. No tachypnea. Case management on consult. K3.6. Magnesium 2.1 and phosphorus 3.6. ALT and AST are on the lower side. Total bilirubin 1.4. A/G ratio 1.2. Patient has significant alcohol withdrawal symptoms. I think, he has advanced dementia and will benefited by follow-up with the neurologist. 2. Dementia, unclear type with unclear behavioral disturbance history: Continue patient home Aricept regimen with a.m. continue fall and aspiration precaution. Patient is discharged along with his , was under the care of my colleague simultaneously. 3. Hypertension: Continue home regimen including lisinopril, losartan, hydrochlorothiazide with hold parameters as needed, PRN hydralazine. 4. Hyperlipidemia: Continue home statin regimen. 5. Anxiety and depression, insomnia: Stable. 6. BPH: will continue patient home Proscar and Flomax regimen. 7. Former tobacco use: Encourage continued tobacco cessation. 8. DVT prophylaxis: SCDs, Lovenox. Discharge medication reconciliation done. Discharge follow-up instructions completed. Discharge process discussed with the patient and all questions were answered to patient's satisfaction. Prescription given for folic acid, potassium supplement and thiamine. Patient is on donezepil. Total time spent, exact 35 minutes on discharge meds reconciliation, examination, coordination of care with nurses and ancillary staff, review of imaging and blood test and discussion with the patient on follow-up instructions Patient Problems: Active and Suspected Problems Desire for detoxification (Acute) Objective: Seen and examined. Patient still does not remember why he is in the hospital. Has advanced dementia. Heart rate and blood pressure are on baseline. No fever. Physical exam General: Awake, oriented x2, Cooperative, BMI 19.9 kg/m?, HEENT: Atraumatic, PERRLA, EOMI, Normocephalic Oral: No Gingival or Mucosal Lesions/ Ulcerations Neck: Supple, No JVD, Negative Carotid Bruits Lungs: Air entry diminished in bilateral lung bases. No crepitation/rhonchi Cardiovascular: Regular rate, Regular Rhythm, Normal S1, Normal S2, No murmurs Abdomen: Bowel Sounds Present, Soft, Non Tender, Non-Distended : No renal angle tenderness. No suprapubic tenderness. Extremities: No edema, Capillary Refill Less than 3 Seconds Skin: No rashes, No breakdown Musculoskeletal: Mild muscle atrophy of extremities. No Tenderness to Palpation of Joints or Extremities Neurological: Cranial nerves II-XII grossly intact, Deep Tendon Reflexes 2+/4 and Symmetrical, Neuro grossly intact Psych/Mental Status: Forgetfulness, dementia. - Physical Exam Vitals/I&O's: Vital Signs Temp Pulse Resp BP Pulse Ox 98.2 F 68 18 101/58 L 96 09/28/20 11:35 09/28/20 11:35 09/28/20 11:35 09/28/20 11:35 09/28/20 11:35 Oxygen Delivery Method Room Air Weight: 125 lb 10.616 oz Body Mass Index (BMI) 19.8 Intake and Output for Last 24 Hours 09/26/20 09/27/20 09/28/20 23:59 23:59 23:59 Intake Total / 940 / 940 Output Total 325 / 325 Balance / 615 / 615 Current Medications Acetaminophen (Acetaminophen 325 Mg Tablet) 650 mg PO Q4H PRN PRN PRN Reason: Temp > 100.4 F Al Hydroxide/Mg Hydroxide (Mag Hydrox/Al Hydrox/Simeth 30 Ml Udc) 30 ml PO Q6H PRN PRN PRN Reason: dyspesia Albuterol Sulfate (Albuterol 2.5 Mg/3 Ml Vial.Neb.) 2.5 mg INHALATION Q2H PRN PRN PRN Reason: Dyspnea, wheezing Atorvastatin Calcium (Atorvastatin Calcium 20 Mg Tablet) 20 mg PO QHS [facility] Last Admin: 09/27/20 20:47 Dose: 20 mg Documented by: Bisacodyl (Bisacodyl 10 Mg Suppository) 10 mg RC DAILY PRN PRN Reason: Constipation Dicyclomine HCl (Dicyclomine 10 Mg Capsule) 20 mg PO Q6H PRN PRN PRN Reason: abdominal discomfort Donepezil HCl (Donepezil Hcl 10 Mg Tablet) 10 mg PO DAILY [facility] Last Admin: 09/28/20 09:49 Dose: 10 mg Documented by: Enoxaparin Sodium (Enoxaparin 40 Mg/0.4 Ml Syringe) 40 mg SC DAILY [facility] Last Admin: 09/28/20 09:49 Dose: 40 mg Documented by: Finasteride (Finasteride 5 Mg Tablet) 5 mg PO DAILY [facility] Last Admin: 09/28/20 09:49 Dose: 5 mg Documented by: Folic Acid (Folic Acid 1 Mg Tablet) 1 mg PO DAILY@0800 [facility] Last Admin: 09/28/20 09:49 Dose: 1 mg Documented by: Gabapentin (Gabapentin 300 Mg Capsule) 200 mg PO Q8H PRN PRN PRN Reason: moderate to severe anxiety Hydralazine HCl (Hydralazine 20 Mg/Ml Vial) 10 mg IV Q4H PRN PRN PRN Reason: SBP > 180 Hydrochlorothiazide (Hydrochlorothiazide 12.5mg) 12.5 mg PO DAILY [facility] Last Admin: 09/28/20 09:55 Dose: Not Given Documented by: Hydroxyzine Pamoate (Hydroxyzine Suzanne 25 Mg Capsule) 50 mg PO Q4H PRN PRN PRN Reason: mild anxiety Lisinopril (Lisinopril 10 Mg Tablet) 10 mg PO DAILY [facility] Last Admin: 09/28/20 09:54 Dose: Not Given Documented by: Loperamide HCl (Loperamide 2 Mg Capsule) 2 mg PO Q4H PRN PRN PRN Reason: LOOSE STOOLS Nutritional Formula (Lactose Free) (Ensure Enlive 120 Ml Liquid) 120 ml PO 4X/DAY [facility] Last Admin: 09/28/20 09:50 Dose: Not Given Documented by: Ondansetron HCl (Ondansetron 8 Mg Tablet) 8 mg PO Q8H PRN PRN PRN Reason: NAUSEA Phenobarbital (Phenobarbital 32.4 Mg Tablet) 64.8 mg PO Q6H [facility]; Taper Stop: 09/30/20 06:59 Last Admin: 09/28/20 06:07 Dose: 64.8 mg Documented by: Potassium Chloride (Potassium Chloride Oral Tablet 20 Meq) [facility] Stop: 09/29/20 08:01 Last Admin: 09/28/20 09:49 Dose: 40 meq Documented by: Senna (Senna Tablet) 2 tablet PO QHS PRN PRN Reason: Constipation Tamsulosin HCl (Tamsulosin Hcl 0.4 Mg Capsule) 0.4 mg PO DINNER [facility] Last Admin: 09/27/20 15:56 Dose: 0.4 mg Documented by: Thiamine HCl (Thiamine Hydrochloride 100 Mg Tablet) [facility] Last Admin: 09/28/20 09:49 Dose: 100 mg Documented by: Trazodone HCl (Trazodone 50 Mg Tablet) 50 mg PO QHS PRN PRN Reason: INSOMNIA Last Admin: 09/27/20 22:13 Dose: 50 mg Documented by: Discharge Activity: May Not Drive Weight Bearing Status: Weight bearing as tolerated Call your doctor if you observe: Coldness, Increased Pain, Numbness or Tingling, Change in Color, Inability to urinate, Shortness of breath, Dizziness, Fainting spells, Swelling in the ankles, Chest pain, Prolonged hiccoughing, Increased palpitations (irregular heartbeat), Calf discomfort, Uncontrolled pain Home Medications: Medications to take at Discharge Atorvastatin Calcium [Lipitor] 20 mg PO QHS 01/18/16 Losartan Potassium 25 mg PO DAILY 01/18/16 Saw [place] 160 mg PO DAILY 01/18/16 Donepezil HCl [Aricept] 10 mg PO DAILY 10/30/19 Finasteride [Proscar] 5 mg PO DAILY 10/30/19 Meloxicam [Mobic] 15 mg PO DAILY 10/30/19 Tamsulosin HCl 0.4 mg PO DINNER 10/30/19 Temazepam 30 mg PO DAILY 09/25/20 Folic Acid 1 mg PO DAILY@0800 #30 tab 09/28/20 Potassium Chloride Oral Tablet [K-Dur] 20 meq PO DAILYCM #5 tab 09/28/20 Thiamine Hydrochloride [Vitamin B1] 100 mg PO DAILYCM #30 tab 09/28/20 Following Prescriptions Were Given to Patient: Folic Acid 1 mg PO DAILY@0800 #30 tab Transmission Status: Received by [facility] Potassium Chloride Oral Tablet [K-Dur] 20 meq PO DAILYCM #5 tab Transmission Status: Received by [facility] Thiamine Hydrochloride [Vitamin B1] 100 mg PO DAILYCM #30 tab Transmission Status: Received by [facility] Primary Care Physician: Ike Vaughn III, MD [Primary Care Provider] - Please Follow Up With: Ike Vaughn III, MD When: In 1 to 2 weeks Medical Necessity - Tobacco Use Smoking Status: Former smoker Tobacco Use: Non-smoker Meaningful Use Info Meaningful Use Diagnoses (Choose all that apply): None applicable Inpatient E&M: [id number] [facility] Hosp
[2020-09-28 11:53] VITALS: BP 101/58; PULSE 68; RESP 18; TEMP 36.8; O2SAT 96
== END 2020-09-28 15:51 | disposition home or self-care (01) | DRG 897 ==
LOC: ED 21:07 → PCU 21:17
PROVIDERS: Admitting Provider Family Medicine; Emergency Provider Emergency Medicine; PCP Family Medicine; Visit Provider Internal Medicine
DX: F10.239 Alcohol dependence with withdrawal, unspecified (principal); F03.91 Unspecified dementia, unspecified severity, with behavioral disturbance; N40.0 Benign prostatic hyperplasia without lower urinary tract symptoms; E78.5 Hyperlipidemia, unspecified; I10 Essential (primary) hypertension; F32.9 Major depressive disorder, single episode, unspecified; F41.9 Anxiety disorder, unspecified; G47.00 Insomnia, unspecified; Z79.1 Long term (current) use of non-steroidal anti-inflammatories (NSAID); Z80.0 Family history of malignant neoplasm of digestive organs; Z82.49 Family history of ischemic heart disease and other diseases of the circulatory system; Z83.3 Family history of diabetes mellitus; Z87.891 Personal history of nicotine dependence; M54.16 Radiculopathy, lumbar region; Z66 Do not resuscitate; Y90.9 Presence of alcohol in blood, level not specified
CPT/HCPCS: 36415; 80053; 80307; 82077; 83735; 84100; 85025; 93005; 97162; 97166; 99284; J7120; A4216

== ENCOUNTER → 2021-02-11 16:08 | Outpatient (CLI) | payer MEDICARE, SELFPAY ==
[2020-09-25 22:34] VITALS: BMI 19.8
[2021-02-11 16:29] LABS: Bacteria 0 SEEN /hpf (None Seen); White Blood Cells 0 SEEN /hpf (0-5)
[2021-02-11 16:40] LABS: Absolute Neutrophil Count 5.4 X10^3/uL (2.0-7.7); Basophil# 0.05 X10^3/uL; Basophil% 0.5 % (0-1); Eosinophil# 0.19 X10^3/uL; Eosinophils% 1.8 % (0-5); Hematocrit 46.4 % (40-54); Hemoglobin 15.8 g/dL (13.0-16.5); Lymphocyte % 33.9 % (19-41); Mean Corp Hgb Conc 34.1 g/dL (32-36); Mean Corpuscular Hgb 31.5 pg (27.0-32.0); Mean Corpuscular Volume 92.6 fL (80-94); Mean Platelet Vol. 10.5 fl (6.2-12.0); Monocyte# 1.19 X10^3/uL; Monocyte% 11.5 % (0-10); NRBC Flagged by Analyzer 0 % (0-5); Neutrophil # 5.37 X10^3/uL (2.7-7.7); Neutrophil % 52.1 % (47-70); Platelet Count 199 K/mm3 (150-450); RBC Distribution Width CV 12.7 % (11.6-14.6); Red Blood Count 5.01 M/mm3 (4.6-6.2); White Blood Count 10.3 K/mm3 (4.4-11.0)
[2021-02-11 17:06] LABS: Color, Urine Yellow (Yellow); Glucose, Dipstick Normal (Normal); Ketone-Dipstick Negative (Negative); Leukocyte Esterase-Dipstick Negative /ul (Negative); Nitrite-Dipstick Negative (Negative); Occult Blood-Urine 10 /ul (Negative); Protein-Dipstick Negative (Negative); Urine Bilirubin Dipstick Negative (Negative); Urine Clarity Clear (Clear); Urine Urobilinogen Normal (Normal)
[2021-02-11 17:09] LABS: ALB/GLOB Ratio 1.2 RATIO (0.9-2.4); AST(SGOT) 20 U/L (15-37); Alanine Aminotransfer ALT/SGPT 19 U/L (16-61); Albumin, Serum 3.8 g/dL (3.2-5.0); Alkaline Phosphatase 106 U/L (45-117); Anion Gap 6 (5-15); BUN 15 mg/dL (7-18); BUN/Creat Ratio 11.9 RATIO (10-20); Calcium,Total 8.5 mg/dL (8.5-10.1); Chloride 103 mmol/L (98-107); Cholesterol 131 mg/dL (200); Creatinine, Serum 1.26 mg/dL (0.70-1.30); EST Glomerular Filtration Rate 58 mL/min (>60); Est Glom Filt Rate - Afr Amer 70 mL/min (>60); Globulin 3.1 g/dL (2.2-4.2); Glucose 81 mg/dL (74-106); High Density Lipoprotein 46 mg/dL; Potassium 3.5 mmol/L (3.5-5.1); Protein, Total 6.9 g/dL (6.4-8.2); Sodium Level 137 mmol/L (136-145); Thyroid Stim Hormone (TSH) 2.61 uIU/mL (0.358-3.74); Triglycerides 241 mg/dL; Very Low Density Lipoprotein 48 mg/dL (5-40)
[2021-02-11 17:24] LABS: Mucous, Urine RARE /hpf (<or=2+); Red Blood Cells-Urine 0-5 SEEN /hpf (0-5); Squamous Epithelial Cells - UA 0-5 SEEN /hpf (0-5)
[2021-02-14 16:38] LABS: PSA, Free 0.15 ng/mL; PSA, Total Ultrasensitive 0.6 ng/mL (0.0-4.0)
== END ==
PROVIDERS: PCP Family Medicine; Referring Provider Physician Assistant; Visit Provider Physician Assistant
DX: R97.20 Elevated prostate specific antigen [PSA] (principal); E78.5 Hyperlipidemia, unspecified; R41.3 Other amnesia
CPT/HCPCS: 80053; 80061; 81001; 84153; 84154; 84443; 85025

== ENCOUNTER 2022-02-04 02:33 | Inpatient (IN) | payer MEDICARE, SELFPAY ==
[2022-02-04] VITALS (7 sets, daily range): BP systolic 111–143; BP diastolic 65–92; PULSE 69–97; RESP 16–18; TEMP 36.3–36.8; O2SAT 96–98; BMI 21.5
--- NOTE | 2022-02-04 02:48 | CT_ITS ---
EXAM: CT HEAD WITHOUT INTRAVENOUS CONTRAST CLINICAL INDICATION: trauma TECHNIQUE: Multiple axial images were obtained of the head without intravenous contrast. This CT exam was performed using one or more of the following dose reduction techniques: automated exposure control, adjustment of the mA and/or kV according to patient size, and/or use of iterative reconstruction technique. This report was created using [employer] report generation technology. RADIATION DOSE: CTDIvol = 45 mGy, DLP = 846 mGy-cm. COMPARISON: 10/30/2019. FINDINGS: BRAIN AND EXTRA-AXIAL SPACES: Moderate generalized atrophy. Moderate low density bilaterally in the deep white matter. No intra- or extra-axial hemorrhage. No evidence of acute infarct. No intracranial mass or mass effect. There is preservation of the bradshaw/white matter interface. Posterior fossa structures are unremarkable. No hydrocephalus. Basal cisterns are patent. BONES/JOINTS: Unremarkable. No discrete lytic or blastic abnormalities. SINUSES: Unremarkable as visualized. Clear. MASTOID AIR CELLS: Unremarkable. Clear. ORBITS: Visualized globes, extraocular muscles, optic nerves and retrobulbar fat appear unremarkable. CT/Brain/Head without Contrast IMPRESSION: Moderate generalized atrophy. Moderate low density bilaterally in the deep white matter. This likely represents small vessel ischemic changes in the deep white matter. Electronically Signed: Luis Pickering MD at 3:52 EDT ,
--- NOTE | 2022-02-04 02:49 | EKG12_ITS ---
Test Reason : [facility] [place] Blood Pressure : / mmHG Vent. Rate : 070 BPM Atrial Rate : 070 BPM P-R Int : 000 ms QRS Dur : 088 ms QT Int : 440 ms P-R-T Axes : 000 036 054 degrees QTc Int : 475 ms Sinus rhythm with PSVC's Abnormal ECG Confirmed by LUIS HUA, CAROLYN ([id number]), assignment editor MATT TILLEY ([id number]) on 02/05/2022 8:19:05 AM Referred By: SELVIN Confirmed By:CAROLYN SMITH MD
--- NOTE | 2022-02-04 02:57 | EX.ED.DYSGE1 ---
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 This patient's is in here with suicidal thoughts. He is not safe to be at home as he has significant dementia and has been drinking tonight with his . He reportedly fell. He does not recall falling. He denies hurting anywhere. He just states he needs to urinate. He makes a lot of noises but evidently this is normal. No further information is really obtainable. Review of systems is unobtainable with any consistency. The combination of his dementia and alcohol make any review of systems potentially flawed. [facility] Medical History unable to obtain Home Medications atorvastatin 20 mg tablet 20 mg PO QHS 01/18/16 [History Last Taken Unknown] losartan 25 mg tablet 25 mg PO DAILY 01/18/16 [History Last Taken 05/19/16 08:00] saw palmetto 160 mg capsule 160 mg PO DAILY 01/18/16 [History Last Taken Unknown] donepezil 10 mg tablet 10 mg PO DAILY 10/30/19 [History Last Taken Unknown] finasteride 5 mg tablet 5 mg PO DAILY 10/30/19 [History Last Taken Unknown] meloxicam 15 mg tablet 15 mg PO DAILY 10/30/19 [History Last Taken Unknown] tamsulosin 0.4 mg capsule 0.4 mg PO DINNER 10/30/19 [History Last Taken Unknown] temazepam 30 mg capsule 30 mg PO DAILY 09/25/20 [History Last Taken Unknown] folic acid 1 mg tablet 1 mg PO DAILY@0800 #30 tabs 09/28/20 [Rx Last Taken Unknown] potassium chloride 20 mEq tablet,extended release(part/cryst) 20 meq PO DAILYCM #5 tabs 09/28/20 [Rx Last Taken Unknown] thiamine HCl (vitamin B1) 100 mg tablet 100 mg PO DAILYCM #30 tabs 09/28/20 [Rx Last Taken Unknown] Allergy/AdvReac Type Severity Reaction Status Date / Time No Known Allergies Allergy Verified 03/22/20 20:14 Family History unable to obtain Surgical History unable to obtain Social History Smoking Status: Former smoker ROS ROS ED Review of Systems ROS Unobtainable: due to mental status EXAM Physical Exam Const Vital Signs: 02/04/22 02:34 02/04/22 02:34 Temperature 97.3 F L 97.3 F L Temperature Source Temporal Temporal Pulse Rate 75 72 Respiratory Rate 16 16 Blood Pressure 131/81 H 131/81 H Blood Pressure Mean 97 97 Pulse Ox 98 98 Oxygen Delivery Method Room Air Room Air Positive well nourished and well developed Constitutional Narrative: Patient is up in the room. He is walking around. He is talking. He has no complaint. General Appearance ED: well developed and NAD HEENT Reports moist mucous membranes HEENT Narrative: I do not see any signs of head trauma on him. Eyes EOMs intact bilaterally Neck General: Negative for tenderness Chest Wall inspection of chest normal Resp normal respiratory effort Auscultation: Negative for rales, rhonchi or wheezes Cardio regular rate and regular rhythm GI normal to inspection, nondistended, normoactive bowel sounds, non-tender and non-distended Back/Spine no CVA tenderness Cervical Spine: Negative for cervical spine tenderness Thoracic Spine / Upper Back: Negative for thoracic spinal tenderness Lumbar Spine / Lower Back: Negative for lumbar spinal tenderness Extremity Extremity Narrative: Patient is up walking without difficulty. No tenderness to his foot ankle legs knees femur or hips. No spinal tenderness. No tenderness with palpation of upper extremities. Neuro Neuro Narrative: Patient is awake alert oriented to person and place. Psych Psych Narrative: Mildly anxious. Skin no rashes or lesions noted Skin Narrative: I see no sign of significant contusions abrasions or wounds. MDM MDM MDM Narrative Medical decision making narrative: Patient's labs show minimal elevation of white count. Hemoglobin is normal. Electrolytes are normal other than mildly low potassium which is chronic for the patient. Alcohol level is elevated at 185. CT shows some chronic changes but no acute process. Patient's family is coming. His will likely be here for a while and possibly admitted for psychiatric reasons. Goal will be to try to get the patient home with family to watch him. If not, he might need to come in the hospital because he is not safe to function independently at home with his significant dementia. Patient's daughter came in. They have been trying to get him into extended care facility for some time. They feel the home situation is not good. They have gotten police and Adult Protective Services involved. His is blocked these attempts. Yet due to alcoholism and overall abilities she is not able to care for him appropriately either. Please evidently are familiar with this. There were videos taken of some of the events of the night. The plan is to get the patient in the hospital. They want to work toward long-term placement. They are using the videos in the current situation through the court system to be able to get power of senior attorney for healthcare for her dad. He will not be able to go home as his is likely to be admitted psychiatrically. I have talked with the hospitalist about this. Patient also now is complaining of a little bit of shoulder pain. When I repeat evaluate him he is not tender and he is downplaying. We did get x-rays. I do not see any acute fracture. Lab Data Attestation: I reviewed the patient's lab results. Labs: Laboratory Results - last 24 hr 02/04/22 02/04/22 02/04/22 03:00 03:00 03:00 WBC 11.1 H RBC 4.88 Hgb 15.7 Hct 46.4 MCV 95.1 H MCH 32.2 H MCHC 33.8 RDW Std Deviation 46.9 H RDW Coeff of Shannon 13.8 Plt Count 207 MPV 9.7 Immature Gran % (Auto) 0.500 Neut % (Auto) 31.7 L Lymph % (Auto) 52.7 H [place] % (Auto) 11.6 H Eos % (Auto) 3.1 Baso % (Auto) 0.4 Absolute Neuts (auto) 3.5 Absolute Lymphs (auto) 5.86 H Nucleated RBC % 0 Differential Comment SCANNED Sodium 140 Potassium 3.3 L Chloride 105 Carbon Dioxide 26.0 Anion Gap 9 BUN 14 Creatinine 1.07 Estim Creat Clear Calc 43.26 Est GFR (MDRD) Af Amer 84 Est GFR (MDRD) Non-Af 70 BUN/Creatinine Ratio 13.1 Glucose 84 Calcium 8.4 L Ethyl Alcohol 185.0 Radiography Diagnostic Testing: Clinical Impression(s) from Imaging Studies Brain CT 02/04/22 02:48 IMPRESSION: Moderate generalized atrophy. Moderate low density bilaterally in the deep white matter. This likely represents small vessel ischemic changes in the deep white matter. Electronically Signed: Luis Pickering MD at 3:52 EDT , EKG Initial EKG: Comments: EKG done as part of medical evaluation read by me shows sinus rhythm with PACs and pauses. It is read as A. fib but I believe this is actually sinus. No ventricular ectopy. CT interval, QRS duration and QTc are normal. QTc is toward the longer and though at 475 ms Discharge Plan Triage Chief Complaint: Fall ED Provider: Daniele Cook Dx/Rx/DC Orders Clinical Impression: Fall at home, Alcohol intoxication, Dementia, Unable to care for self Instructions: ED Alcohol Intoxication, ED Fall Prevention Prescriptions: No Action atorvastatin 20 MG tablet 20 mg PO QHS saw palmetto 160 MG capsule 160 mg PO DAILY losartan 25 MG tablet 25 mg PO DAILY Label Comments: donepezil 10 MG tablet 10 mg PO DAILY meloxicam 15 MG tablet 15 mg PO DAILY tamsulosin 0.4 mg capsule 0.4 mg PO DINNER Label Comments: TAKE 1 CAPSULE BY MOUTH ONCE DAILY AT BEDTIME finasteride 5 MG tablet 5 mg PO DAILY temazepam 30 MG capsule 30 mg PO DAILY Label Comments: TAKE 1 CAPSULE BY MOUTH AT BEDTIME NEEDED FOR UP TO 30 DAYS. DO NOT START BEFORE DECEMBER 2ND thiamine HCl (vitamin B1) 100 MG tablet 100 mg PO DAILYCM Qty: 30 1RF potassium chloride 20 MEQ tablet 20 meq PO DAILYCM Qty: 5 0RF folic acid 1 MG tablet 1 mg PO DAILY@0800 Qty: 30 1RF Primary Care Provider: Finn Cheung Referrals: Finn Cheung MD [Primary Care Provider] - As Needed Disposition Disposition: Home, Self Care
[2022-02-04 03:11] LABS: Absolute Lymphocyte Count 5.86 X10^3/uL (0.83-4.51); Absolute Neutrophil Count 3.5 X10^3/uL (2.0-7.7); Basophil# 0.04 X10^3/uL; Basophil% 0.4 % (0-1); Eosinophil# 0.34 X10^3/uL; Eosinophils% 3.1 % (0-5); Hematocrit 46.4 % (40-54); Hemoglobin 15.7 g/dL (13.0-16.5); Lymphocyte # 5.86 X10^3/ul (0.83-4.51); Lymphocyte % 52.7 % (19-41); Mean Corp Hgb Conc 33.8 g/dL (32-36); Mean Corpuscular Hgb 32.2 pg (27.0-32.0); Mean Corpuscular Volume 95.1 fL (80-94); Mean Platelet Vol. 9.7 fl (6.2-12.0); Monocyte# 1.29 X10^3/uL; Monocyte% 11.6 % (0-10); NRBC Flagged by Analyzer 0 % (0-5); Neutrophil # 3.54 X10^3/uL (2.7-7.7); Neutrophil % 31.7 % (47-70); POSITIVE DIFFERENTIAL YES; POSITIVE MORPHOLOGY YES; Platelet Count 207 K/mm3 (150-450); RBC Distribution Width CV 13.8 % (11.6-14.6); RBC Distribution Width SD 46.9 fl (35.1-43.9); Red Blood Count 4.88 M/mm3 (4.6-6.2); White Blood Count 11.1 K/mm3 (4.4-11.0)
[2022-02-04 03:18] LABS: Differential Indicated SCAN CRITERIA MET
[2022-02-04 03:46] LABS: Differential Comment SCANNED
[2022-02-04 03:48] LABS: Anion Gap 9 (5-15); BUN 14 mg/dL (7-18); BUN/Creat Ratio 13.1 RATIO (10-20); Calcium,Total 8.4 mg/dL (8.5-10.1); Chloride 105 mmol/L (98-107); Creatinine, Serum 1.07 mg/dL (0.70-1.30); EST Glomerular Filtration Rate 70 mL/min (>60); Est Glom Filt Rate - Afr Amer 84 mL/min (>60); Estimated Creatinine Clearance 43.26 ml/min; Glucose 84 mg/dL (74-106); Potassium 3.3 mmol/L (3.5-5.1); Sodium Level 140 mmol/L (136-145)
--- NOTE | 2022-02-04 05:10 | RAD_ITS ---
EXAM: XR LEFT SHOULDER COMPLETE, 2 OR MORE VIEWS CLINICAL INDICATION: trauma TECHNIQUE: Two or more views of the left shoulder. This report was created using [employer] report generation technology. COMPARISON: None. FINDINGS: BONES/JOINTS: Mild left shoulder joint space narrowing and marginal osteophytes involving the inferior aspect of the humeral head. No acute fracture. No subluxation. Normal alignment. No sclerotic or destructive changes observed. SOFT TISSUES: Unremarkable. No soft tissue swelling or gas. No radiopaque foreign body. RAD/Shoulder min 2 Views IMPRESSION: Mild degenerative changes left shoulder. No fracture. Electronically Signed: Luis Pickering MD at 6:19 EDT ,
--- NOTE | 2022-02-04 05:20 | HP.PCM.HOS_ITS ---
HPI - General General Date of Admission: 02/04/22 Date of Service: 02/04/22 Chief Complaint: Inability to take care of self HPI Narrative ROMANA VEE, is a 86 M with a significant history of dementia who is unable to take care of of himself. Family is requesting that patient be admitted to the hospital for possible placement to alf. Of note patient lives with his who is an alcoholic and also presented to the emergency department reportedly for suicide. History was taken from emergency department doctor and patient's family who was at the bedside as patient has dementia and has short-term memory loss Patient daughter reported that patient called multiple family members and left a message that his was acting strangely. Patient's daughter called back patient's multiple times but because patient could not pick the phone patient's daughter called the police to do a wellness check. Also reportedly patient him self had called police but he did not remember why he called. Reportedly when the police got to patient's house patient's was yelling that she wants to and she want to kill himself. The police brought patient's and patient to the emergency department. On presentation patient's alcohol level was 185. Reportedly patient's is also intoxicated, has suicidal ideation and plan will be to admit patient at the psych facility. With patient's being admitted to psych facility patient will be unable to take care of himself so family is requesting the patient be placed. Of note reportedly attempt has been made in the past for patient to be placed but patient has refused. While police was in patient's home, patient who was outside the bath tub fell into the bath tub. Patient complains of pain at his left shoulder. Also patient has bruises at his left antecubital that family says it is new and probably is from the fall. [facility] Medical History unable to obtain Home Medications atorvastatin 20 mg tablet 20 mg PO QHS 01/18/16 [History Last Taken Unknown] losartan 25 mg tablet 25 mg PO DAILY 01/18/16 [History Last Taken 05/19/16 08:00] saw palmetto 160 mg capsule 160 mg PO DAILY 01/18/16 [History Last Taken Unknown] donepezil 10 mg tablet 10 mg PO DAILY 10/30/19 [History Last Taken Unknown] finasteride 5 mg tablet 5 mg PO DAILY 10/30/19 [History Last Taken Unknown] meloxicam 15 mg tablet 15 mg PO DAILY 10/30/19 [History Last Taken Unknown] tamsulosin 0.4 mg capsule 0.4 mg PO DINNER 10/30/19 [History Last Taken Unknown] temazepam 30 mg capsule 30 mg PO DAILY 09/25/20 [History Last Taken Unknown] folic acid 1 mg tablet 1 mg PO DAILY@0800 #30 tabs 09/28/20 [Rx Last Taken Unknown] potassium chloride 20 mEq tablet,extended release(part/cryst) 20 meq PO DAILYCM #5 tabs 09/28/20 [Rx Last Taken Unknown] thiamine HCl (vitamin B1) 100 mg tablet 100 mg PO DAILYCM #30 tabs 09/28/20 [Rx Last Taken Unknown] Allergy/AdvReac Type Severity Reaction Status Date / Time No Known Allergies Allergy Verified 03/22/20 20:14 Family History (Updated 02/04/22 @ 05:[address] Brandon Persaud MD) Other Diabetes Pancreatic cancer Family History unable to obtain Surgical History (Updated 02/04/22 @ 05:[address] Brandon Persaud MD) Previous back surgery Surgical History unable to obtain Social History (Updated 02/04/22 @ 05:[address] Brandon Persaud MD) Smoking Status: Former smoker alcohol intake: current ROS ROS Narrative Pertinent positives and pertinent negatives as noted in HPI. All other systems were reviewed and are negative. Vital Signs Vital Signs Vital Signs: 02/04/22 02:34 02/04/22 02:34 Temperature 97.3 F L 97.3 F L Temperature Source Temporal Temporal Pulse Rate 75 72 Respiratory Rate 16 16 Blood Pressure 131/81 H 131/81 H Blood Pressure Mean 97 97 Pulse Ox 98 98 Oxygen Delivery Method Room Air Room Air Weight Weight: 60.6 kg Body Mass Index (BMI) 21.5 Physical Exam Narrative Physical exam: General: Well-nourished, well-developed. Head: Normocephalic, atraumatic, no tenderness Eyes: Vision is grossly intact. EOMI ENT, no trauma, moist mucous membranes, no rhinorrhea Neck: Nontender, full range of motion CVS: Regular rate and rhythm. S1-S2 present. No murmur, gallop or rub. Respiratory : clear to auscultation bilaterally, chest wall nontender, no wheezing Abdomen: Soft, nontender, nondistended, normal bowel sounds, no masses : Deferred Back: Nontender, no CVA tenderness, no midline spinal tenderness, deformities, step-offs Extremities: Nontender full range of motion, no trauma Skin: Bruises in right antecubital area. Normal color, no trauma, abrasions Neuro: Alert, cranial nerves II through XII grossly intact. Psychiatry: Normal mood. Normal affect. Not depressed. Not anxious. Patient makes weird noises (per family patient makes the noises when he is scared). Results Lab / Micro Data Result Diagrams: 02/04/22 03:00 02/04/22 03:00 Labs: Laboratory Results - last 24 hr 02/04/22 03:00: WBC 11.1 H, RBC 4.88, Hgb 15.7, Hct 46.4, MCV 95.1 H, MCH 32.2 H , MCHC 33.8, RDW Std Deviation 46.9 H, RDW Coeff of Shannon 13.8, Plt Count 207, MPV 9.7, Immature Gran % (Auto) 0.500, Neut % (Auto) 31.7 L, Lymph % (Auto) 52.7 H, [place] % (Auto) 11.6 H, Eos % (Auto) 3.1, Baso % (Auto) 0.4, Absolute Neuts (auto) 3.5, Absolute Lymphs (auto) 5.86 H, Nucleated RBC % 0, Differential Comment SCANNED 02/04/22 03:00: Sodium 140, Potassium 3.3 L, Chloride 105, Carbon Dioxide 26.0, Anion Gap 9, BUN 14, Creatinine 1.07, Estim Creat Clear Calc 43.26, Est GFR (MDRD) Af Amer 84, Est GFR (MDRD) Non-Af 70, BUN/Creatinine Ratio 13.1, Glucose 84, Calcium 8.4 L 02/04/22 03:00: Ethyl Alcohol 185.[address] 02/04/22 02:48 IMPRESSION: Moderate generalized atrophy. Moderate low density bilaterally in the deep white matter. This likely represents small vessel ischemic changes in the deep white matter. Electronically Signed: Luis Pickering MD at 3:52 EDT , Assessment & Plan Assessment/Plan (1) Failure to thrive: PLAN: Failure to thrive secondary to dementia. Per family patient is unable to take care of himself. Per physical examination patient has short-term memory loss. Of note patient did not know why he was at the hospital. With being institutionalized patient would not be able to take of himself. And even if is not institutionalized is not safe for patient to live at this time as they all had high alcohol level. From review of records both and patient's had been at hospital for detoxification. Continue home dementia medications. PT and OT consult Case management consult. (2) Alcoholism: PLAN: His alcohol level on presentation was 185. Per family patient drinks about a bottle of beer every day and a glass of [place]. Per family on Sundays patient may drink more. Family does not think that patient's or withdrawal from alcohol. We will put patient on [facility] protocol. Folic acid and thiamine ordered. (3) Fall: PLAN: Fall leg secondary to alcoholism and/unsteady gait Brain CT was visualized and independently interpreted. I agree with radiology interpretation above. Shoulder x-ray was visualized and independently interpreted with no acute abnormality seen. Await radiologist official interpretation. Check vitamin D level. Check vitamin B12 level. Charges/Coding Visit Charges Inpatient E&M: 24710 Init Hosp L3
--- NOTE | 2022-02-04 07:42 | PN.HOSP_ITS ---
Subjective Subjective Patient denies any symptoms. Family is concerned about dementia have taken the keys away from him before but the patient's , their mother called the police on stealing it. Objective Data Objective Data Vital Signs: Vital Signs Temp Pulse Resp BP Pulse Ox O2 Del Method 36.8 C 69 16 135/71 H 96 Room Air 02/04/22 06:42 02/04/22 06:42 02/04/22 06:42 02/04/22 06:42 02/04/22 06:42 02/04/22 06:42 Oxygen Delivery Method Room Air Weight: 60.6 kg Body Mass Index (BMI) 21.5 Lab / Micro Data Result Diagrams: 02/04/22 03:00 02/04/22 03:00 Labs: Laboratory Results - last 24 hr 02/04/22 03:00: WBC 11.1 H, RBC 4.88, Hgb 15.7, Hct 46.4, MCV 95.1 H, MCH 32.2 H , MCHC 33.8, RDW Std Deviation 46.9 H, RDW Coeff of Shannon 13.8, Plt Count 207, MPV 9.7, Immature Gran % (Auto) 0.500, Neut % (Auto) 31.7 L, Lymph % (Auto) 52.7 H, [place] % (Auto) 11.6 H, Eos % (Auto) 3.1, Baso % (Auto) 0.4, Absolute Neuts (auto) 3.5, Absolute Lymphs (auto) 5.86 H, Nucleated RBC % 0, Differential Comment SCANNED 02/04/22 03:00: Sodium 140, Potassium 3.3 L, Chloride 105, Carbon Dioxide 26.0, Anion Gap 9, BUN 14, Creatinine 1.07, Estim Creat Clear Calc 43.26, Est GFR (MDRD) Af Amer 84, Est GFR (MDRD) Non-Af 70, BUN/Creatinine Ratio 13.1, Glucose 84, Calcium 8.4 L 02/04/22 03:00: Ethyl Alcohol 185.0 Radiography Diagnostic Testing: Radiology Impression Brain CT 02/04/22 02:48 IMPRESSION: Moderate generalized atrophy. Moderate low density bilaterally in the deep white matter. This likely represents small vessel ischemic changes in the deep white matter. Electronically Signed: Luis Pickering MD at 3:52 EDT , Shoulder X-Ray 02/04/22 05:10 IMPRESSION: Mild degenerative changes left shoulder. No fracture. Electronically Signed: Luis Pickering MD at 6:19 EDT , Physical Exam Const alert and no apparent distress Resp normal respiratory effort, no retractions, no use of accessory muscles and clear to auscultation bilaterally Cardio regular rate, regular rhythm, S1 normal heart sound and S2 normal heart sound GI normal to inspection, nondistended, normoactive bowel sounds, soft to palpation, non-tender and non-distended Extremity normal to inspection Assessment & Plan Assessment/Plan (1) Fall: (2) Alcoholism: (3) Failure to thrive: PLAN: Plan 1. failure to thrive complicated by dementia and his is unable help care for him (she will be going to a psychiatric unit) plan for placement Referrals placed to [facility] assisted living for placement. Follow- up. 2. Alcohol abuse unlikely to go into withdrawal given reported history provided on thiamine and folate 3. Suspected dementia Per the family. Formally diagnosis patient will need to have a formal dementia evaluation with geriatrics. I think is very reasonable for patient's khakis to be withheld as potential high risk for accidents. Appears that he gets impulsive particular more so when he drinks alcohol. All the children are the medical power of event coordinator marketing and sales and son is a financial power of event coordinator marketing and sales. I told him that his far as I understand that it would be reasonable for them to withhold his case. They are concerned as patient is not competent to make his own decisions. The patient's would not be able to make needs decisions as she is not the power of event coordinator marketing and sales despite being next of kin. Greater than 40 minutes of which greater than 50% time was discussing with the patient's family about dementia, power of event coordinator marketing and sales's and what rights they have as the power of event coordinator marketing and sales's. Charges/Coding Procedures Hospitalists Procedures: Other Procedure - See Report (Nonbillable rounding as patient was admitted after midnight.)
[2022-02-04] MEDS: Enoxaparin 40 MG/0.4 ML Syringe SC (10:15)
[2022-02-04] MEDS: Thiamine Hydrochloride 100 MG Tablet PO (10:16)
[2022-02-04] MEDS: Folic Acid 1 MG Tablet PO (10:16)
[2022-02-04 13:48] LABS: Bacteria 0 SEEN /hpf (None Seen); Mucous, Urine 0 SEEN /hpf (<or=2+)
[2022-02-04 14:13] LABS: Color, Urine Yellow (Yellow); Glucose, Dipstick Normal (Normal); Ketone-Dipstick 5 mg/dl (Negative); Leukocyte Esterase-Dipstick 25 /ul (Negative); Nitrite-Dipstick Negative (Negative); Occult Blood-Urine 10 /ul (Negative); Protein-Dipstick 30 mg/dl (Negative); Specific Gravity, Urine 1.015 (1.002-1.030); Urine Clarity Sl. Cloudy (Clear); Urine Urobilinogen 8 mg/dl (Normal)
[2022-02-04 14:15] LABS: Urine Bilirubin Dipstick 1 mg/dL (Negative)
[2022-02-04 14:21] LABS: Red Blood Cells-Urine 0-5 SEEN /hpf (0-5); Squamous Epithelial Cells - UA 0-5 SEEN /hpf (0-5); White Blood Cells 0-5 SEEN /hpf (0-5)
--- NOTE | 2022-02-04 15:30 | CASEMGMT ---
Social Work LORNE met with pt and pts daughters Bessy and Mayela. Pt able to answer most questions and family fills in where pt cannot answer. Pt lives at home with his in a 1 story home with 2 steps to enter. Pt has been independent with ambulation and also with personal care and meals. Pt does have cognitive impairment and family states he does use alcohol excessively. Pt's is being admitted to another hospital and therefore per family, pt cannot return home alone. Pt does not disagree with this plan. Family made aware that pt does not qualify for SNF as he has no functional need for PT/OT and no medical need for a shelter. Family understanding and requesting assisted living. Family has looked into assisted living previously and have spoken to [facility]. Phone call to [facility] and spoke with Zoran. Pt is currently on the waiting list but no beds are available. LORNE met with pt and family and informed of this and provided a list of area assisted living facilities and family to consider and let LORNE know. Follow up phone call from pt elidia Pedro who is requesting referrals be sent to [facility] assisted living and [facility]. Family has talked to both facilities and they both have beds available. Referrals faxed, will await determination of acceptance. SORAIDA Torres
--- NOTE | 2022-02-04 22:33 | CM.ED ---
Social Work Note LORNE updated by pt's Helene that she will become mean towards pt. LORNE was informed by pt's daughter Gonzalo that pt's drinks daily and will become mean and cussing and yelling. LORNE did call Rk with APS and provided initial information. LORNE provided handoff to Bob QUIGLEY with this information. Diana Dooley DRY PLACER MACHINE OPERATOR, SLIDE FASTENER CHAIN ASSEMBLER
[2022-02-04] MEDS: LORazepam 0.5 MG Tablet PO (22:51)
[2022-02-05 00:27] VITALS: BP 122/68; PULSE 95; RESP 18; TEMP 36.6; O2SAT 98
[2022-02-05] MEDS: LORazepam 1 MG Tablet 2 MG PO (00:54)
[2022-02-05 07:00] LABS: Absolute Lymphocyte Count 5.66 X10^3/uL (0.83-4.51); Basophil# 0.03 X10^3/uL; Basophil% 0.3 % (0-1); Eosinophil# 0.36 X10^3/uL; Hematocrit 42.4 % (40-54); Hemoglobin 15.1 g/dL (13.0-16.5); Lymphocyte # 5.66 X10^3/ul (0.83-4.51); Lymphocyte % 47.9 % (19-41); Mean Corp Hgb Conc 35.6 g/dL (32-36); Mean Corpuscular Hgb 32.9 pg (27.0-32.0); Mean Corpuscular Volume 92.4 fL (80-94); Mean Platelet Vol. 9.7 fl (6.2-12.0); Monocyte# 0.71 X10^3/uL; NRBC Flagged by Analyzer 0 % (0-5); Neutrophil # 5.02 X10^3/uL (2.7-7.7); Neutrophil % 42.5 % (47-70); POSITIVE DIFFERENTIAL YES; POSITIVE MORPHOLOGY YES; Platelet Count 174 K/mm3 (150-450); RBC Distribution Width CV 13.6 % (11.6-14.6); RBC Distribution Width SD 44.8 fl (35.1-43.9); Red Blood Count 4.59 M/mm3 (4.6-6.2); White Blood Count 11.8 K/mm3 (4.4-11.0)
[2022-02-05 07:10] LABS: Differential Indicated SCAN CRITERIA MET
[2022-02-05 07:26] LABS: AST(SGOT) 17 U/L (15-37); Alanine Aminotransfer ALT/SGPT 14 U/L (16-61); Albumin, Serum 2.9 g/dL (3.2-5.0); Alkaline Phosphatase 100 U/L (45-117); Anion Gap 7 (5-15); BUN 18 mg/dL (7-18); BUN/Creat Ratio 15.4 RATIO (10-20); Calcium,Total 8.2 mg/dL (8.5-10.1); Chloride 106 mmol/L (98-107); Creatinine, Serum 1.17 mg/dL (0.70-1.30); EST Glomerular Filtration Rate 63 mL/min (>60); Est Glom Filt Rate - Afr Amer 76 mL/min (>60); Estimated Creatinine Clearance 39.57 ml/min; Glucose 119 mg/dL (74-106); Potassium 3.1 mmol/L (3.5-5.1); Protein, Total 5.9 g/dL (6.4-8.2); Sodium Level 139 mmol/L (136-145)
[2022-02-05] MEDS: Folic Acid 1 MG Tablet PO (07:49)
[2022-02-05] MEDS: Enoxaparin 40 MG/0.4 ML Syringe SC (07:49)
[2022-02-05] MEDS: Thiamine Hydrochloride 100 MG Tablet PO (07:49)
--- NOTE | 2022-02-05 08:15 | PN.HOSP_ITS ---
Subjective Subjective Denies any complaints. Objective Data Objective Data Vital Signs: Vital Signs Temp Pulse Resp BP Pulse Ox O2 Del Method 36.6 C 95 18 122/68 H 98 Room Air 02/05/22 00:27 02/05/22 00:27 02/05/22 00:27 02/05/22 00:27 02/05/22 00:27 02/05/22 07:43 Oxygen Delivery Method Room Air Weight: 60.6 kg Body Mass Index (BMI) 21.5 Lab / Micro Data Result Diagrams: 02/05/22 06:40 02/05/22 06:40 Labs: Laboratory Results - last 24 hr 02/04/22 13:41: Urine Color Yellow, Urine Clarity Sl. Cloudy, Urine pH 6.0, Ur Specific Lavinia 1.015, Urine Protein 30 H, Urine Glucose (UA) Normal, Urine Ketones 5 H, Urine Occult Blood 10 H, Urine Nitrite Negative, Urine Bilirubin 1 H, Urine Urobilinogen 8 H, Ur Leukocyte Esterase 25 H, Urine RBC 0-5 SEEN, Urine WBC 0-5 SEEN, Ur Squamous Epith Cells 0-5 SEEN, Urine Bacteria 0 SEEN, Urine Mucus 0 SEEN 02/05/22 06:40: WBC 11.8 H, RBC 4.59 L, Hgb 15.1, Hct 42.4, MCV 92.4, MCH 32.9 H , MCHC 35.6 D, RDW Std Deviation 44.8 H, RDW Coeff of Shannon 13.6, Plt Count 174, MPV 9.7, Immature Gran % (Auto) 0.300, Neut % (Auto) 42.5 L, Lymph % (Auto) 47.9 H, [place] % (Auto) 6.0, Eos % (Auto) 3.0, Baso % (Auto) 0.3, Absolute Neuts (auto) 5.0, Absolute Lymphs (auto) 5.66 H, Nucleated RBC % 0 02/05/22 06:40: Sodium 139, Potassium 3.1 L, Chloride 106, Carbon Dioxide 26.0, Anion Gap 7, BUN 18, Creatinine 1.17, Estim Creat Clear Calc 39.57, Est GFR (MDRD) Af Amer 76, Est GFR (MDRD) Non-Af 63, BUN/Creatinine Ratio 15.4, Glucose 119 H, Calcium 8.2 L, Total Bilirubin 0.90, AST 17, ALT 14 L, Alkaline Phosphatase 100, Total Protein 5.9 L, Albumin 2.9 L, Globulin 3.0, [place] min/Globulin Ratio 1.0 Physical Exam Const alert and no apparent distress Resp normal respiratory effort, no retractions, no use of accessory muscles and clear to auscultation bilaterally Cardio regular rate, regular rhythm, S1 normal heart sound and S2 normal heart sound GI normal to inspection, nondistended, normoactive bowel sounds and soft to palpation Assessment & Plan Assessment/Plan (1) Fall: (2) Alcoholism: (3) Failure to thrive: PLAN: Plan 1. failure to thrive complicated by dementia and his is unable help care for him (she will be going to a psychiatric unit) plan for placement Referrals placed to [facility] assisted living for placement. Follow- up. CHRIS PEÑA--working on plan with family. 2. Alcohol abuse unlikely to go into withdrawal given reported history provided on thiamine and folate 3. Suspected dementia Per the family. Formally diagnosis patient will need to have a formal dementia evaluation with geriatrics. I think is very reasonable for patient's khakis to be withheld as potential high risk for accidents. Appears that he gets impulsive particular more so when he drinks alcohol. All the children are the medical power of workers compensation attorney and son is a financial power of workers compensation attorney. I told him that his far as I understand that it would be reasonable for them to withhold his case. They are concerned as patient is not competent to make his own decisions. The patient's would not be able to make needs decisions as she is not the power of workers compensation attorney despite being next of kin. Charges/Coding Visit Charges Inpatient E&M: 37753 Subs Hosp L2
[2022-02-05 08:23] LABS: Vitamin B12 284 pg/mL (211-911); Vitamin D,25 Hydroxy 39.4 ng/mL
[2022-02-05 10:00] VITALS: BP 139/69; PULSE 77; RESP 18; TEMP 36.7; O2SAT 97
--- NOTE | 2022-02-05 11:08 | CASEMGMT ---
Addendum entered by Michelle Dyer 02/05/22 11:15: Social Work SW called daughter Shalini([phone]) to confirm plan is for pt to return home and pt's son is planning to stay w/pt. Message left. SW will await return call. JOSE Covarrubias Original Note: Social Work SW received a call from Archie, at [facility], requesting if family is agreeable can they come to assess pt in person. LORNE let Archie know that they can come see pt. Archie also inquired about pt's drinking and if pt is appropriate for assisted living. LORNE explained will review chart and call him back. SW reviewed chart, it does appear pt is appropriate for AL. LORNE called Archie back to let him now. He states he spoke w/daughter Mayela who is now saying the plan is for pt to go home and pt's son will stay w/him. SW will verify this with family. JOSE Covarrubias
--- NOTE | 2022-02-05 12:19 | CASEMGMT ---
Social Work SW spoke w/Noelle from [facility], she states that pt is not appropriate for their assisted living. SW spoke w/daughter Jesse and son outside of the room in regard to discharge plan. SW did let them know that [facility] cannot take pt in their assisted living. We spoke about the discharge plan from here, reviewed options. They would like to consider pt going to [facility] to the longterm private pay vs going home w/son until a bed opens up in the assisted living at [facility]. As per daughter pt is 2nd on the wait list. SW called [facility], they will review referral, cost is $245-$285/day. As per Jackie, once pt is in the care center, he would move to the top of the list for the assisted living. SW let family know this. They are in agreement w/referral being sent to [facility], though they are not certain if they would want to go this route or still go home. They also would like to know if the AL at [facility] would actually take pt. Daughter is concerned as [facility] is not accepting pt, and Michael wasn't sure. SW explained will ask [facility] to review for SNF and then pass the information on to Zoran in assisted living to review as well. Son then asked about home health options. SW explained that pt would not qualify under insurance for home health care, they could pay privately however. Family states they have set up assist at home and the pt and will accept it for a while, and then eventually they send everyone home. Daughter asked if there is concern about pt going home w/son. LORNE explained that the concern is whether or not the son can manage pt and who will eventually be home as well(she is in ER at present awaiting psych/substance abuse placement as per daughter). Son states he has stayed with them in the past for up to two months and has been able to manage, both pt and do listen to him and don't drink when he is there. LORNE explained will send referral to [facility] and let them know, they will then decide what they would like to do. LORNE called Jackie again at [facility], let her know referral will be sent. LORNE asked her to review and then also pass on to Zoran in assisted living to review. LORNE explained the daughter's concerns that they will not want pt in their AL. SW will continue to follow, referral to be sent to [facility]. JOSE Covarrubias
--- NOTE | 2022-02-05 12:50 | CASEMGMT ---
Discharge Trolley Collector Merlyn Discharge Trolley Collector faxed over referral to Jackie at [facility]. Will follow up Merlyn Rabago Discharge Trolley Collector
[2022-02-05 13:48] VITALS: BP 111/67; PULSE 71; RESP 18; TEMP 36.6; O2SAT 95
--- NOTE | 2022-02-05 15:08 | CASEMGMT ---
Addendum entered by Michelle Dyer 02/05/22 15:56: Social Work LORNE spoke w/Jackie again from [facility]. She spoke with Zoran from the Assisted Living(AL), and there is concern if pt would be appropriate for the AL due to his dementia. She states that each part of the AL has a patio that is unlocked, and the concern would be pt could wander out. As per Jackie, this is the first time Z[facility]an has been given any clinical information on the pt, and based on the information given he does not feel pt would be safe for their AL. LORNE spoke w/daughter Shalini. SW let her know the above information. Daughter expressed frustration. She states she does not know what to do, that there are no options for pt and nobody is able to help. She states they will just take pt home. SW offered support. SW gave daughter list of other AL's, encouraged her to follow up. SW explained that perhaps pt will need a locked unit in AL. Daughter states that costs more and her parents may not be able to afford it. LORNE explained that some of the AL's in nursing homes do take Medicaid, should pt spend down his money and then qualify for Medicaid. Daughter states that they can't spend all of her parent's money on pt as pt's also needs to live on the money. SW explained that [facility] would work with them on this but that it wouldn't be that all of her parent's money was spent on him and leave his with nothing. Daughter states understanding. LORNE reminded daughter that Michael did not say no, they are willing to assess pt in person. Daughter agreeable to LORNE calling to see if they can do this in the home. LORNE called Michael. He states they can definitely assess the pt at home, daughter just needs to call. He also states they have a locked dementia building, separate from the assisted living. LORNE let daughter know this information and gave her the number to call Archie. Daughter then states she thought LORNE was calling [facility], she also would like to see if [facility] would assess him at home for the AL. LORNE called Jackie, she states that Z[facility] can assess pt at home, however he is going on vacation. She took daughter's name and number and will have Zoran call daughter directly to schedule an assessment at home. We did talk about pt going to [facility], to the fpc side. Daughter is not agreeable to this, she states pt does not need a fpc at this time. LORNE did also give daughter a list of private home health care agencies. Daughter states she has called all of the agencies and none of them have any aides available for more than one week. Daughter states they will take pt home and will follow up from home in trying to get pt in to [place]. Pt's son will stay w/pt. LORNE then got a call from daughter a short time later, she followed up w/Zoran at [facility] and she states the documentation from the hospital was not an accurate assessment of the pt. She states as per Zoran, it appeared he was much more debilitated than he actually is. She states Zoran is going to come out next week to assess pt in person, and she is more hopeful based on this conversation that they may consider pt. LORNE did text physician to let him know pt will go home today, he will discharge pt. LORNE let RN know, she will notify daughter when pt is ready for discharge. LORNE called [facility], lety Squires that pt is going home today. No further needs. JOSE Covarrubias Original Note: Social Work SW spoke w/Jackie at [facility], the fpc would be able to take pt, and she is waiting back to hear from Zoran on whether or not pt would be appropriate for the assisted living once a bed is available. LORNE let daughter know. They are not going to agree to SNF at [facility] unless they know that pt would be accepted from there to the assisted living. SW explained will let her know as soon as Jackie from [facility] gets back to . JOSE Covarrubias
--- NOTE | 2022-02-05 16:06 | DCINST_ITS ---
Discharge Instructions Diet Discharge Diet: No restrictions Follow Up Care Test Results: Test results from this visit will be discussed in further detail at your follow- up appointment, if applicable. Discharge Plan Admission Admit Date/Time: 02/04/22 05:14 Primary Reason for Your Visit: debility Attending Provider: James Bautista Primary Care Provider: Finn Cheung Consulting Providers: Brandon Persaud Instructions Patient Instructions: ED Alcohol Intoxication, ED Fall Prevention Discharge Orders/Prescriptions Prescriptions: New multivitamin Tablet 1 tab PO DAILY Qty: 30 0RF Continued atorvastatin 20 MG tablet 20 mg PO QHS saw palmetto 160 MG capsule 160 mg PO DAILY losartan 25 MG tablet 25 mg PO DAILY Label Comments: donepezil 10 MG tablet 10 mg PO DAILY meloxicam 15 MG tablet 15 mg PO DAILY tamsulosin 0.4 mg capsule 0.4 mg PO DINNER Label Comments: TAKE 1 CAPSULE BY MOUTH ONCE DAILY AT BEDTIME finasteride 5 MG tablet 5 mg PO DAILY temazepam 30 MG capsule 30 mg PO DAILY Label Comments: TAKE 1 CAPSULE BY MOUTH AT BEDTIME NEEDED FOR UP TO 30 DAYS. DO NOT START BEFORE December thiamine HCl (vitamin B1) 100 MG tablet 100 mg PO DAILYCM Qty: 30 1RF potassium chloride 20 MEQ tablet 20 meq PO DAILYCM Qty: 5 0RF folic acid 1 MG tablet 1 mg PO DAILY@0800 Qty: 30 1RF Referrals / Follow Up: Finn Cheung MD [Primary Care Provider] - Within 2 Weeks Disposition Disposition (needs filled in before D/C Order can be placed): Home, Self Care
--- NOTE | 2022-02-05 16:09 | PCM.DC.SUM ---
Providers Date of Admission: 02/04/22 Primary Care Physician: Dr. Finn Cheung MD Reason For Visit: ALCOHOL INTOXICATION, ADULT FAILURE TO THRIVE Diagnosis Discharge Diagnosis (1) Fall: Status: Acute Code(s): W19.XXXA - Unspecified fall, initial encounter (2) Alcoholism: Status: Acute Code(s): F10.20 - Alcohol dependence, uncomplicated (3) Failure to thrive: Status: Acute Plan 1. failure to thrive complicated by dementia and his is unable help care for him (she will be going to a psychiatric unit) plan for placement Referrals placed to [facility] living for placement. Plan is for patient to go home or family is going to stay with him. The patient's may be in psychiatric unit for suicidal ideation. The concern is that they are try to get him into assisted living as he is unable to care for himself but apparently the assisted living they are having concerns about the patient watering given his underlying dementia. So the ultimate goal is for him to go to assisted living if that would be feasible. 2. Alcohol abuse unlikely to go into withdrawal given reported history provided Patient did not demonstrate any issues regards to withdrawal. Patient may continue with a multivitamin. 3. Suspected dementia Per the family. Formally diagnosis patient will need to have a formal dementia evaluation with geriatrics. I think is very reasonable for patient's khakis to be withheld as potential high risk for accidents. Appears that he gets impulsive particular more so when he drinks alcohol. All the children are the medical power of prosecuting attorney and son is a financial power of prosecuting attorney. I told him that his far as I understand that it would be reasonable for them to withhold his case. They are concerned as patient is not competent to make his own decisions. The patient's would not be able to make needs decisions as she is not the power of prosecuting attorney despite being next of kin. Medications at Discharge Home Medications atorvastatin 20 mg tablet 20 mg PO QHS 01/18/16 losartan 25 mg tablet 25 mg PO DAILY 01/18/16 saw palmetto 160 mg capsule 160 mg PO DAILY 01/18/16 donepezil 10 mg tablet 10 mg PO DAILY 10/30/19 finasteride 5 mg tablet 5 mg PO DAILY 10/30/19 meloxicam 15 mg tablet 15 mg PO DAILY 03/29/20 tamsulosin 0.4 mg capsule 0.4 mg PO DINNER 10/30/19 temazepam 30 mg capsule 30 mg PO DAILY 09/25/20 folic acid 1 mg tablet 1 mg PO DAILY@0800 #30 tabs 09/28/20 potassium chloride 20 mEq tablet,extended release(part/cryst) 20 meq PO DAILYCM #5 tabs 09/28/20 thiamine HCl (vitamin B1) 100 mg tablet 100 mg PO DAILYCM #30 tabs 09/28/20 multivitamin 1 tab PO DAILY #30 tabs 02/05/22 Weight / BMI Weight Weight: 60.6 kg Body Mass Index (BMI) 21.5 ABG / Lab / Microbiology Data Result Diagrams: 02/05/22 06:40 02/05/22 06:40 Laboratory: Laboratory Results - last 24 hr 02/05/22 06:40: WBC 11.8 H, RBC 4.59 L, Hgb 15.1, Hct 42.4, MCV 92.4, MCH 32.9 H, MCHC 35.6 D, RDW Std Deviation 44.8 H, RDW Coeff of Shannon 13.6, Plt Count 174, MPV 9.7, Immature Gran % (Auto) 0.300, Neut % (Auto) 42.5 L, Lymph % (Auto) 47.9 H, [place] % (Auto) 6.0, Eos % (Auto) 3.0, Baso % (Auto) 0.3, Absolute Neuts (auto) 5.0, Absolute Lymphs (auto) 5.66 H, Nucleated RBC % 0 02/05/22 06:40: Sodium 139, Potassium 3.1 L, Chloride 106, Carbon Dioxide 26.0, Anion Gap 7, BUN 18, Creatinine 1.17, Estim Creat Clear Calc 39.57, Est GFR (MDRD) Af Amer 76, Est GFR (MDRD) Non-Af 63, BUN/Creatinine Ratio 15.4, Glucose 119 H, Calcium 8.2 L, Total Bilirubin 0.90, AST 17, ALT 14 L, Alkaline Phosphatase 100, Total Protein 5.9 L, Albumin 2.9 L, Globulin 3.0, Albumin/Globulin Ratio 1.0 02/05/22 06:40: Vitamin B12 284, Vitamin D 25-Hydroxy 39.4 D/C Instructions Discharge Diet: No restrictions Meaningful Use Info Meaningful Use Diagnoses (Choose all that apply): None applicable Discharge Plan Admission Admit Date/Time: 02/04/22 05:14 Primary Reason for Your Visit: debility Attending Provider: James Bautista Primary Care Provider: Finn Cheung Consulting Providers: Brandon Persaud Instructions Patient Instructions: ED Alcohol Intoxication, ED Fall Prevention Discharge Orders/Prescriptions Prescriptions: New multivitamin Tablet 1 tab PO DAILY Qty: 30 0RF Continued atorvastatin 20 MG tablet 20 mg PO QHS saw palmetto 160 MG capsule 160 mg PO DAILY losartan 25 MG tablet 25 mg PO DAILY Label Comments: donepezil 10 MG tablet 10 mg PO DAILY meloxicam 15 MG tablet 15 mg PO DAILY tamsulosin 0.4 mg capsule 0.4 mg PO DINNER Label Comments: TAKE 1 CAPSULE BY MOUTH ONCE DAILY AT BEDTIME finasteride 5 MG tablet 5 mg PO DAILY temazepam 30 MG capsule 30 mg PO DAILY Label Comments: TAKE 1 CAPSULE BY MOUTH AT BEDTIME NEEDED FOR UP TO 30 DAYS. DO NOT START BEFORE December thiamine HCl (vitamin B1) 100 MG tablet 100 mg PO DAILYCM Qty: 30 1RF potassium chloride 20 MEQ tablet 20 meq PO DAILYCM Qty: 5 0RF folic acid 1 MG tablet 1 mg PO DAILY@0800 Qty: 30 1RF Referrals / Follow Up: Finn Cheung MD [Primary Care Provider] - Within 2 Weeks Disposition Disposition (needs filled in before D/C Order can be placed): Home, Self Care Charges/Coding Visit Charges Inpatient E&M: 30242 Disch Hosp
== END 2022-02-05 18:03 | disposition home or self-care (01) | DRG 641 ==
LOC: ED 05:46 → MS3 06:38
PROVIDERS: Admitting Provider Hospitalist; Emergency Provider Emergency Medicine; PCP Family Medicine
DX: R62.7 Adult failure to thrive (principal); F03.90 Unspecified dementia, unspecified severity, without behavioral disturbance, psychotic disturbance, mood disturbance, and anxiety; F10.20 Alcohol dependence, uncomplicated; M25.519 Pain in unspecified shoulder; W19.XXXA Unspecified fall, initial encounter; Z87.891 Personal history of nicotine dependence; Y90.6 Blood alcohol level of 120-199 mg/100 ml
CPT/HCPCS: 36415; 70450; 73020; 73030; 80048; 80053; 81001; 82077; 82306; 82607; 85025; 93005; 97162; 97165; 99284

== ENCOUNTER → 2022-05-12 | Outpatient (REF) | payer MEDICARE, SELFPAY ==
[2022-05-12 09:27] LABS: Absolute Neutrophil Count 3.3 X10^3/uL (2.0-7.7); Basophil# 0.06 X10^3/uL; Basophil% 0.5 % (0-1); Eosinophil# 0.99 X10^3/uL; Eosinophils% 8.8 % (0-5); Hematocrit 51.1 % (40-54); Hemoglobin 17.3 g/dL (13.0-16.5); Lymphocyte % 50.9 % (19-41); Mean Corp Hgb Conc 33.9 g/dL (32-36); Mean Corpuscular Hgb 31.9 pg (27.0-32.0); Mean Corpuscular Volume 94.3 fL (80-94); Mean Platelet Vol. 10.3 fl (6.2-12.0); Monocyte% 9.8 % (0-10); NRBC Flagged by Analyzer 0 % (0-5); Neutrophil % 29.6 % (47-70); POSITIVE DIFFERENTIAL YES; POSITIVE MORPHOLOGY YES; Platelet Count 213 K/mm3 (150-450); RBC Distribution Width CV 12.1 % (11.6-14.6); RBC Distribution Width SD 41.5 fl (35.1-43.9); Red Blood Count 5.42 M/mm3 (4.6-6.2); White Blood Count 11.2 K/mm3 (4.4-11.0)
[2022-05-12 09:28] LABS: Differential Indicated SCAN CRITERIA MET
[2022-05-12 09:59] LABS: Vitamin B12 375 pg/mL (211-911); Vitamin D,25 Hydroxy 36.5 ng/mL
[2022-05-12 10:14] LABS: Reactive Lymphocyte 1+
[2022-05-12 10:19] LABS: AST(SGOT) 23 U/L (15-37); Alanine Aminotransfer ALT/SGPT 27 U/L (16-61); Albumin, Serum 3.4 g/dL (3.2-5.0); Alkaline Phosphatase 105 U/L (45-117); Anion Gap 7 (5-15); BUN 22 mg/dL (7-18); BUN/Creat Ratio 15.2 RATIO (10-20); Calcium,Total 8.9 mg/dL (8.5-10.1); Chloride 103 mmol/L (98-107); Cholesterol 235 mg/dL (200); Creatinine, Serum 1.45 mg/dL (0.70-1.30); EST Glomerular Filtration Rate 49 mL/min (>60); Est Glom Filt Rate - Afr Amer 59 mL/min (>60); Globulin 3.3 g/dL (2.2-4.2); Glucose 88 mg/dL (74-106); High Density Lipoprotein 33 mg/dL; Potassium 4.3 mmol/L (3.5-5.1); Protein, Total 6.7 g/dL (6.4-8.2); Sodium Level 136 mmol/L (136-145); Triglycerides 217 mg/dL; Very Low Density Lipoprotein 43 mg/dL (5-40)
== END ==
LOC: OLS.SWAL 05:00
PROVIDERS: PCP Family Medicine; Visit Provider Internal Medicine
DX: I10 Essential (primary) hypertension (principal); E55.9 Vitamin D deficiency, unspecified
CPT/HCPCS: 36415; 80053; 80061; 82306; 82607; 84443; 85025

== ENCOUNTER 2022-07-27 00:49 | Emergency (ER) | payer MEDICARE, SELFPAY ==
[2022-07-27 00:52] VITALS: BP 128/78; PULSE 64; RESP 19; TEMP 37; O2SAT 98; BMI 23.3
--- NOTE | 2022-07-27 01:10 | ED.VIS.DYS ---
HPI History of Present Illness Chief Complaint: Cold Sx Informant: patient Narrative Narrative: Patient states he cannot breathe through his nose. He states its been going on quite a while. However, he cannot say how long that is. He does have some history of dementia. He states he is not short of breath. He does not feel sick. He just cannot breathe well through his nose. We are trying to find somebody at the nursing facility to see if there is more to the story. I am suspicious that he may have told them that he was having trouble breathing and they sent him in but he had not defined that it was only when he breathes through his nose. [facility] Medical History Alcohol abuse Alcoholism Anxiety and depression Benign prostatic hypertrophy Dementia Desire for detoxification Former tobacco use Hyperlipidemia Hypertension Left lumbar radiculopathy Mild dementia Unable to care for self Home Medications atorvastatin 20 mg tablet 20 mg PO QHS 01/18/16 [History Last Taken Unknown] losartan 25 mg tablet 25 mg PO DAILY 01/18/16 [History Last Taken 05/19/16 08:00] saw palmetto 160 mg capsule 160 mg PO DAILY 01/18/16 [History Last Taken Unknown] donepezil 10 mg tablet 10 mg PO DAILY 10/30/19 [History Last Taken Unknown] finasteride 5 mg tablet 5 mg PO DAILY 10/30/19 [History Last Taken Unknown] meloxicam 15 mg tablet 15 mg PO DAILY 10/30/19 [History Last Taken Unknown] tamsulosin 0.4 mg capsule 0.4 mg PO DINNER 10/30/19 [History Last Taken Unknown] temazepam 30 mg capsule 30 mg PO DAILY 09/25/20 [History Last Taken Unknown] folic acid 1 mg tablet 1 mg PO DAILY@0800 #30 tabs 09/28/20 [Rx Last Taken Unknown] potassium chloride 20 mEq tablet,extended release(part/cryst) 20 meq PO DAILYCM #5 tabs 09/28/20 [Rx Last Taken Unknown] thiamine HCl (vitamin B1) 100 mg tablet 100 mg PO DAILYCM #30 tabs 09/28/20 [Rx Last Taken Unknown] multivitamin 1 tab PO DAILY #30 tabs 02/05/22 [Rx Last Taken Unknown] Allergy/AdvReac Type Severity Reaction Status Date / Time Benzodiazepines Allergy PT UNSURE Verified 07/27/22 02:04 OF REACTION losartan Allergy PT UNSURE Verified 07/27/22 02:04 OF REACTION morphine Allergy PT UNSURE Verified 07/27/22 02:04 OF REACTION Family History Other Diabetes Pancreatic cancer Surgical History Hx of appendectomy Previous back surgery Social History Smoking Status: Former smoker alcohol intake: current ROS ROS ED Constitutional Constitutional ED: Denies chills or fever(s) ENT ENT ED: Reports other Details: History of present illness. ; Denies ear pain or sore throat Cardiovascular Cardiovascular: Denies chest pain Respiratory/Chest Respiratory/Chest: Denies cough Gastrointestinal Gastrointestinal: Denies abdominal pain, nausea or vomiting Musculoskeletal Musculoskeletal: Denies arthralgias or myalgias Integumentary Denies rash Neurologic Neurologic: Denies headache(s) Hematologic/Lymphatic Hematologic/Lymphatic: Denies lymphadenopathy Allergic/Immunologic Allergic/Immunologic ED: Denies urticaria EXAM Physical Exam Const Vital Signs: 07/27/22 00:52 07/27/22 00:52 Temperature 98.6 F Temperature Source Temporal Pulse Rate 64 Respiratory Rate 19 H Respiratory Effort Normal Respiratory Pattern Normal Blood Pressure 128/78 H Blood Pressure Mean 94 Pulse Ox 98 Oxygen Delivery Method Room Air Positive well nourished and well developed Constitutional Narrative: Patient sitting quietly in bed. He is breathing easily. No acute distress. He looks comfortable. General Appearance ED: well developed HEENT Reports moist mucous membranes HEENT Narrative: Patient does have mild nasal congestion. Turbinates are minimally swollen. No rhinorrhea. No discharge. No sinus tenderness. Oropharynx is normal. Voice is normal. He does have decreased air motion through the nostrils. Eyes General Eye ED: Negative for scleral icterus Neck no lymphadenopathy and no JVD Resp normal respiratory effort and clear to auscultation bilaterally Resp Narrative: Lungs are clear. Auscultation: Negative for rales, rhonchi or wheezes Cardio regular rate and regular rhythm GI non-tender and non-distended Palpation: soft Back/Spine no CVA tenderness Extremity normal to inspection General Extremety ED: Negative for edema or tenderness General Extremity: Negative for edema Neuro Sensorium / Orientation: alert Skin no wounds MDM MDM MDM Narrative Medical decision making narrative: Chest x-ray is overall unremarkable. Patient had nasal spray done. He feels better. He states the right 1 has a little bit of congestio but still breathes. He is breathing through the nose fine. He is walked around the department here he is walking in his room. His saturations are normal. I do not think this patient needs comprehensive work-up, blood work, CT, EKG. He has nasal congestion is his only complaint. This can be managed at his facility. Both his COVID and influenza are negative. Radiography Diagnostic Testing: Clinical Impression(s) from Imaging Studies Chest X-Ray 07/27/22 01:31 IMPRESSION: Early left lower lobe pneumonia. Electronically Signed: Elle Dalton MD at 1:50 EST , Chest X-Ray 07/27/22 02:09 IMPRESSION: Normal x-ray examination of the chest. Electronically Signed: Elle aDlton MD at 3:08 EST , Initial single view chest x-ray was read as possible early left lower lobe pneumonia. Patient's not hypoxic coughing. I did repeat this with a PA and lateral that shows no acute process. Discharge Plan Triage Chief Complaint: Cold Sx ED Provider: Daniele Cook Dx/Rx/DC Orders Clinical Impression: Congested nose Instructions: ED Allergic Rhinitis Prescriptions: No Action atorvastatin 20 MG tablet 20 mg PO QHS saw palmetto 160 MG capsule 160 mg PO DAILY losartan 25 MG tablet 25 mg PO DAILY Label Comments: donepezil 10 MG tablet 10 mg PO DAILY meloxicam 15 MG tablet 15 mg PO DAILY tamsulosin 0.4 mg capsule 0.4 mg PO DINNER Label Comments: TAKE 1 CAPSULE BY MOUTH ONCE DAILY AT BEDTIME finasteride 5 MG tablet 5 mg PO DAILY temazepam 30 MG capsule 30 mg PO DAILY Label Comments: TAKE 1 CAPSULE BY MOUTH AT BEDTIME NEEDED FOR UP TO 30 DAYS. DO NOT START BEFORE December thiamine HCl (vitamin B1) 100 MG tablet 100 mg PO DAILYCM Qty: 30 1RF potassium chloride 20 MEQ tablet 20 meq PO DAILYCM Qty: 5 0RF folic acid 1 MG tablet 1 mg PO DAILY@0800 Qty: 30 1RF multivitamin Tablet 1 tab PO DAILY Qty: 30 0RF Primary Care Provider: Finn Cheung Referrals: Finn Cheung MD [Primary Care Provider] - 3-5 Days if not improving Disposition Disposition: Alf Facility
[2022-07-27] MEDS: Oxymetazoline 0.05% 1 SPRAY SPRAY.BTL 2 SPRAY NASAL (01:24)
--- NOTE | 2022-07-27 01:31 | RAD_ITS ---
STUDY: X-RAY CHEST REASON FOR EXAM: Male, 86 years old. SOB TECHNIQUE: Single AP portable view of the chest. COMPARISON: None. FINDINGS: Ill-defined groundglass opacity in the left lung base suggesting early pneumonia. There is no demonstrated pleural abnormality. Normal size heart. Normal mediastinum and grant. Normal visualized pulmonary arteries. Normal visualized aortic arch and descending thoracic aorta. Normal visualized thoracic spine. Normal visualized ribs, clavicles, and shoulders. There is no demonstrated abnormality of the visualized soft tissue structures of the upper abdomen. RAD/Chest 1 View (Portable) IMPRESSION: Early left lower lobe pneumonia. Electronically Signed: Elle Dalton MD at 1:50 EST ,
--- NOTE | 2022-07-27 02:09 | RAD_ITS ---
STUDY: X-RAY CHEST REASON FOR EXAM: Male, 86 years old. SOB -- possible early pneumonia on AP film No fever cough TECHNIQUE: Frontal and lateral views of the chest. COMPARISON: None. FINDINGS: The lungs are clear and expanded. There is no demonstrated pleural abnormality. Normal size heart. Normal mediastinum and grant. Normal visualized pulmonary arteries. There is atherosclerotic calcification of the aortic arch with tortuosity. Normal visualized thoracic spine. Normal visualized ribs, clavicles, and shoulders. There is no demonstrated abnormality of the visualized soft tissue structures of the upper abdomen. RAD/Chest PA and Lateral IMPRESSION: Normal x-ray examination of the chest. Electronically Signed: Elle Dalton MD at 3:08 EST ,
[2022-07-27 07:43] VITALS: RESP 18
== END 2022-07-27 08:08 ==
PROVIDERS: Emergency Provider Emergency Medicine; PCP Family Medicine; Visit Provider Emergency Medicine
DX: R09.81 Nasal congestion (principal); F03.90 Unspecified dementia, unspecified severity, without behavioral disturbance, psychotic disturbance, mood disturbance, and anxiety; E78.5 Hyperlipidemia, unspecified; I10 Essential (primary) hypertension; Z87.891 Personal history of nicotine dependence
CPT/HCPCS: 71045; 71046; 87428; 99284

== ENCOUNTER → 2022-09-08 | Outpatient (REF) | payer MEDICARE, MEDICAID, SELFPAY ==
[2022-09-08 08:39] LABS: Hematocrit 41.6 % (40-54); Hemoglobin 14.1 g/dL (13.0-16.5); Mean Corp Hgb Conc 33.9 g/dL (32-36); Mean Corpuscular Hgb 31.2 pg (27.0-32.0); Mean Platelet Vol. 10.4 fl (6.2-12.0); Platelet Count 227 K/mm3 (150-450); RBC Distribution Width CV 13.1 % (11.6-14.6); RBC Distribution Width SD 44.3 fl (35.1-43.9); Red Blood Count 4.52 M/mm3 (4.6-6.2); White Blood Count 9.5 K/mm3 (4.4-11.0)
[2022-09-08 09:09] LABS: Anion Gap 8 (5-15); BUN 34 mg/dL (7-18); BUN/Creat Ratio 20.5 RATIO (10-20); Calcium,Total 8.9 mg/dL (8.5-10.1); Chloride 110 mmol/L (98-107); Creatinine, Serum 1.66 mg/dL (0.70-1.30); EST Glomerular Filtration Rate 42 mL/min (>60); Est Glom Filt Rate - Afr Amer 51 mL/min (>60); Glucose 83 mg/dL (74-106); Magnesium 1.8 mg/dL (1.6-2.6); Potassium 3.8 mmol/L (3.5-5.1); Sodium Level 142 mmol/L (136-145)
== END ==
LOC: OLS.SWAL 04:00
PROVIDERS: PCP Family Medicine; Referring Provider Internal Medicine; Visit Provider Internal Medicine
DX: I10 Essential (primary) hypertension (principal); E78.5 Hyperlipidemia, unspecified
CPT/HCPCS: 36415; 80048; 83735; 85027

== ENCOUNTER → 2022-09-22 | Outpatient (REF) | payer MEDICARE, MEDICAID, SELFPAY ==
[2022-09-22 09:17] LABS: Anion Gap 9 (5-15); BUN 23 mg/dL (7-18); Chloride 107 mmol/L (98-107); Creatinine, Serum 1.53 mg/dL (0.70-1.30); EST Glomerular Filtration Rate 46 mL/min (>60); Est Glom Filt Rate - Afr Amer 56 mL/min (>60); Glucose 79 mg/dL (74-106); Potassium 3.7 mmol/L (3.5-5.1); Sodium Level 139 mmol/L (136-145)
== END ==
LOC: OLS.SWAL 04:00
PROVIDERS: PCP Family Medicine; Referring Provider Internal Medicine; Visit Provider Internal Medicine
DX: N18.30 Chronic kidney disease, stage 3 unspecified (principal)
CPT/HCPCS: 36415; 80048

== ENCOUNTER → 2022-12-24 | Outpatient (REF) | payer MEDICARE, MEDICAID, SELFPAY ==
[2022-12-24 09:26] LABS: Anion Gap 7 (5-15); BUN 25 mg/dL (7-18); BUN/Creat Ratio 20.7 RATIO (10-20); Calcium,Total 8.2 mg/dL (8.5-10.1); Chloride 113 mmol/L (98-107); Creatinine, Serum 1.21 mg/dL (0.70-1.30); EST Glomerular Filtration Rate 60 mL/min (>60); Est Glom Filt Rate - Afr Amer 73 mL/min (>60); Glucose 86 mg/dL (74-106); Sodium Level 141 mmol/L (136-145)
== END ==
LOC: OLS.SWAL 05:00
PROVIDERS: PCP Family Medicine; Visit Provider Internal Medicine
DX: N18.30 Chronic kidney disease, stage 3 unspecified (principal)
CPT/HCPCS: 36415; 80048

== ENCOUNTER → 2023-01-01 05:00 | Outpatient (REF) | payer MEDICARE, MEDICAID, SELFPAY ==
[2023-01-01 10:19] LABS: Vitamin D,25 Hydroxy 31.9 ng/mL
== END ==
LOC: OLS.SWAL 05:00
PROVIDERS: PCP Family Medicine; Visit Provider Internal Medicine
DX: E55.9 Vitamin D deficiency, unspecified (principal)
CPT/HCPCS: 36415; 82306

== ENCOUNTER → 2023-06-01 | Outpatient (REF) | payer MEDICARE, MEDICAID, SELFPAY ==
[2023-06-01 08:13] LABS: Bacteria 0 SEEN /hpf (None Seen); Mucous, Urine 0 SEEN /hpf (<or=2+); Red Blood Cells-Urine 0 SEEN /hpf (0-5)
[2023-06-01 08:22] LABS: Color, Urine Yellow (Yellow); Glucose, Dipstick Normal (Normal); Ketone-Dipstick 5 mg/dl (Negative); Leukocyte Esterase-Dipstick 25 /ul (Negative); Nitrite-Dipstick Negative (Negative); Occult Blood-Urine Negative /ul (Negative); Protein-Dipstick 30 mg/dl (Negative); Urine Clarity Sl. Cloudy (Clear); Urine Urobilinogen Normal (Normal)
[2023-06-01 08:22] LABS: Absolute Lymphocyte Count 7.16 X10^3/uL (0.83-4.51); Absolute Neutrophil Count 4.7 X10^3/uL (2.0-7.7); Basophil# 0.07 X10^3/uL; Basophil% 0.5 % (0-1); Eosinophil# 0.73 X10^3/uL; Eosinophils% 5.4 % (0-5); Hematocrit 48.1 % (40-54); Hemoglobin 15.8 g/dL (13.0-16.5); Lymphocyte # 7.16 X10^3/ul (0.83-4.51); Lymphocyte % 52.7 % (19-41); Mean Corp Hgb Conc 32.8 g/dL (32-36); Mean Corpuscular Hgb 30.4 pg (27.0-32.0); Mean Corpuscular Volume 92.7 fL (80-94); Monocyte# 0.91 X10^3/uL; Monocyte% 6.7 % (0-10); NRBC Flagged by Analyzer 0 % (0-5); Neutrophil # 4.66 X10^3/uL (2.7-7.7); Neutrophil % 34.3 % (47-70); POSITIVE DIFFERENTIAL YES; POSITIVE MORPHOLOGY YES; Platelet Count 194 K/mm3 (150-450); RBC Distribution Width SD 47.9 fl (35.1-43.9); Red Blood Count 5.19 M/mm3 (4.6-6.2); White Blood Count 13.6 K/mm3 (4.4-11.0)
[2023-06-01 08:23] LABS: Differential Indicated SCAN CRITERIA MET
[2023-06-01 08:24] LABS: Urine Bilirubin Dipstick 1 mg/dL (Negative)
[2023-06-01 08:34] LABS: Squamous Epithelial Cells - UA 0-5 SEEN /hpf (0-5); White Blood Cells 0-5 SEEN /hpf (0-5)
[2023-06-01 08:39] LABS: Anion Gap 7 (5-15); BUN 14 mg/dL (7-18); BUN/Creat Ratio 12.6 RATIO (10-20); Calcium,Total 8.3 mg/dL (8.5-10.1); Chloride 110 mmol/L (98-107); Cholesterol 135 mg/dL (200); Creatinine, Serum 1.11 mg/dL (0.70-1.30); EST Glomerular Filtration Rate 67 mL/min (>60); Est Glom Filt Rate - Afr Amer 81 mL/min (>60); Glucose 88 mg/dL (74-106); High Density Lipoprotein 45 mg/dL; Potassium 3.4 mmol/L (3.5-5.1); Sodium Level 139 mmol/L (136-145); Triglycerides 138 mg/dL; Very Low Density Lipoprotein 28 mg/dL (5-40)
== END ==
LOC: OLS.SWAL 04:00
PROVIDERS: PCP Family Medicine; Referring Provider Internal Medicine; Visit Provider Internal Medicine
DX: I10 Essential (primary) hypertension (principal); Z79.899 Other long term (current) drug therapy
CPT/HCPCS: 36415; 80048; 80061; 81001; 85025; 87086

== ENCOUNTER → 2023-06-05 | Outpatient (REF) | payer MEDICARE, MEDICAID, SELFPAY ==
[2023-06-05 09:41] LABS: Hematocrit 45.5 % (40-54); Hemoglobin 14.7 g/dL (13.0-16.5); Mean Corp Hgb Conc 32.3 g/dL (32-36); Mean Corpuscular Hgb 30.2 pg (27.0-32.0); Mean Corpuscular Volume 93.6 fL (80-94); Mean Platelet Vol. 10.9 fl (6.2-12.0); Platelet Count 209 K/mm3 (150-450); RBC Distribution Width CV 14.4 % (11.6-14.6); RBC Distribution Width SD 49.1 fl (35.1-43.9); Red Blood Count 4.86 M/mm3 (4.6-6.2); White Blood Count 11.3 K/mm3 (4.4-11.0)
== END ==
LOC: OLS.SWAL 05:00
PROVIDERS: PCP Family Medicine; Visit Provider Internal Medicine
DX: I10 Essential (primary) hypertension (principal)
CPT/HCPCS: 36415; 85027

== ENCOUNTER → 2023-06-08 | Outpatient (REF) | payer MEDICARE, MEDICAID, SELFPAY ==
[2023-06-09 10:29] LABS: Bacteria 0 SEEN /hpf (None Seen); Mucous, Urine 0 SEEN /hpf (<or=2+); Red Blood Cells-Urine 0 SEEN /hpf (0-5)
[2023-06-09 10:41] LABS: Color, Urine Yellow (Yellow); Glucose, Dipstick Normal (Normal); Ketone-Dipstick Negative (Negative); Leukocyte Esterase-Dipstick 100 /ul (Negative); Nitrite-Dipstick Negative (Negative); Occult Blood-Urine Negative /ul (Negative); Protein-Dipstick 30 mg/dl (Negative); Specific Gravity, Urine 1.015 (1.002-1.030); Urine Clarity Clear (Clear); Urine Urobilinogen Normal (Normal)
[2023-06-09 10:47] LABS: Urine Bilirubin Dipstick 1 mg/dL (Negative)
[2023-06-09 10:51] LABS: White Blood Cells 0-5 SEEN /hpf (0-5)
[2023-06-09 10:52] LABS: Squamous Epithelial Cells - UA 0-5 SEEN /hpf (0-5)
== END ==
LOC: OLS.SWAL 22:00
PROVIDERS: PCP Family Medicine; Visit Provider Internal Medicine
DX: N39.0 Urinary tract infection, site not specified (principal)
CPT/HCPCS: 81001; 87077; 87086; 87088; 87186

== ENCOUNTER 2023-07-12 18:28 | Inpatient (IN) | payer MEDICARE, MEDICAID, SELFPAY ==
[2023-07-12 18:29] VITALS: BP 149/98; PULSE 119; RESP 23; TEMP 37.2; O2SAT 94; BMI 21.9
--- NOTE | 2023-07-12 18:35 | EKG12_ITS ---
Test Reason : CONFUSION Blood Pressure : / mmHG Vent. Rate : 114 BPM Atrial Rate : 115 BPM P-R Int : 184 ms QRS Dur : 072 ms QT Int : 360 ms P-R-T Axes : 031 029 048 degrees QTc Int : 496 ms Sinus tachycardia Nonspecific ST and T wave abnormality Abnormal ECG Confirmed by VINCENT HUA, SEGUNDO ([id number]), manager editorial YOVANA HUNT ([id number]) on 07/20/2023 6:48:27 AM Referred By: Confirmed By:OLIVE KAUR MD
--- NOTE | 2023-07-12 18:36 | EX.ED.DYSGE1 ---
HPI <BETH Bae - Last Filed: 07/12/23 21:08> History of Present Illness Chief Complaint: Confusion Narrative Narrative: 87-year-old male with PMH of HTN, HLD, dementia presents from [facility] with a few days of increased weakness, cough, and urinary and bowel incontinence, and today seemed more confused so was brought in by EMS. It is unclear what his baseline mentation is but he has severe dementia. Patient can tell me his name and that he is in no pain and has no complaints. PFSH <BETH Bae - Last Filed: 07/12/23 21:08> [facility] Medical History Alcohol abuse Alcoholism Alzheimer's dementia Anxiety and depression Benign prostatic hypertrophy Dementia Desire for detoxification Former tobacco use Hyperlipidemia Hypertension Impingement of right shoulder Left lumbar radiculopathy Left shoulder pain Mild dementia Primary osteoarthritis, left shoulder Right shoulder pain Unable to care for self Home Medications atorvastatin 20 mg tablet 20 mg PO QHS 01/18/16 [History Last Taken Unknown] losartan 25 mg tablet 25 mg PO DAILY 01/18/16 [History Last Taken 05/19/16 08:00] saw palmetto 160 mg capsule 160 mg PO DAILY 01/18/16 [History Last Taken Unknown] donepezil 10 mg tablet 10 mg PO DAILY 10/30/19 [History Last Taken Unknown] finasteride 5 mg tablet 5 mg PO DAILY 10/30/19 [History Last Taken Unknown] meloxicam 15 mg tablet 15 mg PO DAILY 10/30/19 [History Last Taken Unknown] tamsulosin 0.4 mg capsule 0.4 mg PO DINNER 10/30/19 [History Last Taken Unknown] temazepam 30 mg capsule 30 mg PO DAILY 09/25/20 [History Last Taken Unknown] folic acid 1 mg tablet 1 mg PO DAILY@0800 #30 tabs 09/28/20 [Rx Last Taken Unknown] potassium chloride 20 mEq tablet,extended release(part/cryst) 20 meq PO DAILYCM #5 tabs 09/28/20 [Rx Last Taken Unknown] thiamine HCl (vitamin B1) 100 mg tablet 100 mg PO DAILYCM #30 tabs 09/28/20 [Rx Last Taken Unknown] multivitamin 1 tab PO DAILY #30 tabs 02/05/22 [Rx Last Taken Unknown] acetaminophen 500 mg capsule 500 mg PO Q6H PRN 11/07/22 [History Last Taken Unknown] doxycycline hyclate 100 mg capsule 100 mg PO DAILY 11/07/22 [History Last Taken Unknown] fluticasone propionate 50 mcg/actuation nasal spray,suspension (Flonase Allergy Relief) 1 spray intranasal DAILY 11/07/22 [History Last Taken Unknown] gabapentin 300 mg capsule 300 mg PO BID 11/07/22 [History Last Taken Unknown] guaifenesin 600 mg tablet, extended release 12 hr (Mucinex) 600 mg PO Q12H PRN 11/07/22 [History Last Taken Unknown] ibuprofen 200 mg capsule 200 mg PO Q6H PRN 11/07/22 [History Last Taken Unknown] ketotifen fumarate 0.025 % (0.035 %) eye drops (Alaway) 1 drp ophthalmic (eye) BID 11/07/22 [History Last Taken Unknown] loratadine 10 mg tablet (Claritin) 10 mg PO DAILY 11/07/22 [History Last Taken Unknown] memantine 10 mg tablet (Namenda) 10 mg PO BID 11/07/22 [History Last Taken Unknown] omeprazole 20 mg capsule,delayed release 20 mg PO DAILY 11/07/22 [History Last Taken Unknown] Allergy/AdvReac Type Severity Reaction Status Date / Time Benzodiazepines Allergy PT UNSURE Verified 07/12/23 18:36 OF REACTION losartan Allergy PT UNSURE Verified 07/12/23 18:36 OF REACTION morphine Allergy PT UNSURE Verified 07/12/23 18:36 OF REACTION Family History Other Diabetes Pancreatic cancer Surgical History Hx of appendectomy Previous back surgery Social History Smoking Status: Former smoker alcohol intake: current ROS <BETH Bae - Last Filed: 07/12/23 21:08> ROS ED ROS Narrative Unable to obtain due to dementia EXAM <BETH Bae - Last Filed: 07/12/23 21:08> Physical Exam Narrative Exam Narrative: CONST: Patient sitting in no acute distress. EYES: Normal inspection. NECK: Normal inspection. RESP: No respiratory distress, CTAB. CVS: Irregularly irregular rhythm around 110 bpm, no murmur, no gallop. ABD: Soft and nontender, no guarding or rebound, nondistended SKIN: Color normal, no rash, warm, dry, intact. EXTREMITIES: Normal appearance, no pedal edema. NEURO: Alert to self. 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 No upper or lower extremity drift. PSYCH: Normal affect. Const Vital Signs: 07/12/23 18:29 Temperature 98.9 F Temperature Source Oral Pulse Rate 119 H Respiratory Rate 23 H Blood Pressure 149/98 H Blood Pressure Mean 115 Pulse Ox 94 Oxygen Delivery Method Room Air <Dr. Daniele Cook MD - Last Filed: 07/12/23 21:57> Physical Exam Const Vital Signs: 07/12/23 18:29 Temperature 98.9 F Temperature Source Oral Pulse Rate 119 H Respiratory Rate 23 H Blood Pressure 149/98 H Blood Pressure Mean 115 Pulse Ox 94 Oxygen Delivery Method Room Air MDM <BETH Bae - Last Filed: 07/12/23 21:08> MDM MDM Narrative Medical decision making narrative: History gathered from: [facility], son-in-law Patient is sent in for evaluation of a cough, weakness, urinary and bowel incontinence. He has advanced dementia so cannot provide history. He is awake alert to self and follows commands and has no focal neurological deficits. His son-in-law who arrived states he seems a little less with it than normal but he has not seen him in a while. Patient is tachycardic on exam and sounded irregular. EKG is read as sinus tachycardia. On review I am not sure if it is sinus tach, MAT or A-fib but will be monitored. His lungs are clear. His abdomen soft and nontender. Labs show white count of 15.6. BMP is unremarkable. His family member was concerned he sometimes sneaks alcohol into the facility so serum alcohol level was checked and is negative. Nasal swab is positive for COVID-19; CXR and urine are negative for infection. Patient was covered in his own urine and bowel movement and was not even aware of this. I feel he is too weak and fatigued and cannot care for himself at his assisted living facility because he is only checked on once a day and his is too elderly to care for him. His nurse called [facility] and they are not able to escalate to higher level of care so the patient will require admission. Case will be discussed with the hospitalist. Lab Data Attestation: I reviewed the patient's lab results. Labs: Laboratory Results - last 24 hr 07/12/23 07/12/23 19:45 20:40 WBC 15.6 H RBC 5.08 Hgb 15.7 Hct 49.5 MCV 97.4 H MCH 30.9 MCHC 31.7 L RDW Std Deviation 49.4 H RDW Coeff of Shannon 13.7 Plt Count 121 L MPV 10.5 Immature Gran % (Auto) 0.400 Neut % (Auto) 69.1 Lymph % (Auto) 24.6 [place] % (Auto) 5.4 Eos % (Auto) 0.3 Baso % (Auto) 0.2 Absolute Neuts (auto) 10.8 H Absolute Lymphs (auto) 3.83 Nucleated RBC % 0 Sodium 138 Potassium 3.6 Chloride 110 H Carbon Dioxide 25.0 Anion Gap 3 L BUN 19 H Creatinine 1.13 Estim Creat Clear Calc 40.95 Est GFR (MDRD) Af Amer 79 Est GFR (MDRD) Non-Af 65 BUN/Creatinine Ratio 16.8 Glucose 92 Lactic Acid 1.9 Calcium 8.4 L Urine Color Yellow Urine Clarity Clear Urine pH 6.0 Ur Specific Esmond 1.025 Urine Protein 30 H Urine Glucose (UA) Normal Urine Ketones 50 H Urine Occult Blood 25 H Urine Nitrite Negative Urine Bilirubin 1 H Urine Urobilinogen 1 H Ur Leukocyte Esterase 25 H Urine RBC 0-5 SEEN Urine WBC 0 SEEN Ur Squamous Epith Cells 0 SEEN Urine Bacteria 0 SEEN Urine Mucus 1+ Ethyl Alcohol < 3.0 Radiography Diagnostic Testing: Clinical Impression(s) from Imaging Studies Chest X-Ray 07/12/23 19:35 IMPRESSION: Right basilar atelectasis. Electronically Signed: Sung Gaviria DO at 20:10 EST , <Dr. Daniele Cook MD - Last Filed: 07/12/23 21:57> [facility] Lab Data Labs: Laboratory Results - last 24 hr 07/12/23 07/12/23 19:45 20:40 WBC 15.6 H RBC 5.08 Hgb 15.7 Hct 49.5 MCV 97.4 H MCH 30.9 MCHC 31.7 L RDW Std Deviation 49.4 H RDW Coeff of Shannon 13.7 Plt Count 121 L MPV 10.5 Immature Gran % (Auto) 0.400 Neut % (Auto) 69.1 Lymph % (Auto) 24.6 [place] % (Auto) 5.4 Eos % (Auto) 0.3 Baso % (Auto) 0.2 Absolute Neuts (auto) 10.8 H Absolute Lymphs (auto) 3.83 Nucleated RBC % 0 Sodium 138 Potassium 3.6 Chloride 110 H Carbon Dioxide 25.0 Anion Gap 3 L BUN 19 H Creatinine 1.13 Estim Creat Clear Calc 40.95 Est GFR (MDRD) Af Amer 79 Est GFR (MDRD) Non-Af 65 BUN/Creatinine Ratio 16.8 Glucose 92 Lactic Acid 1.9 Calcium 8.4 L Urine Color Yellow Urine Clarity Clear Urine pH 6.0 Ur Specific Esmond 1.025 Urine Protein 30 H Urine Glucose (UA) Normal Urine Ketones 50 H Urine Occult Blood 25 H Urine Nitrite Negative Urine Bilirubin 1 H Urine Urobilinogen 1 H Ur Leukocyte Esterase 25 H Urine RBC 0-5 SEEN Urine WBC 0 SEEN Ur Squamous Epith Cells 0 SEEN Urine Bacteria 0 SEEN Urine Mucus 1+ Ethyl Alcohol < 3.0 Radiography Diagnostic Testing: Clinical Impression(s) from Imaging Studies Chest X-Ray 07/12/23 19:35 IMPRESSION: Right basilar atelectasis. Electronically Signed: Sung Gaviria DO at 20:10 EST Reading Location ID and State: [facility] / [place] Tel [phone], Service support , Treatment and Re-Evaluation :: In I have personally performed a face to face assessment of the patient and have reviewed the ARCELIA Note. I performed a substantive portion of the visit including all aspects of the following. My goss findings include: History: Patient was sent in for cough and less alert than normal. It sounds like he lives in assisted living with his . She has been sick with some coughing and strep recently. He is evidently been having some cough although I do not know the details. He just seems less alert today. He does have a history of significant dementia. Patient states he feels fine. He has no complaints. I did talk with his son-in-law to gain further history. He admits that his [id number] seems a little bit less alert than normal but he has not seen him for about 2 weeks. The son-in-law also stated that his [id number] has been known to sneak alcohol when he is not supposed to. He does not know if this happened but he thought it was important that we know this. I really cannot get a detailed review of systems from the patient as he has no complaint. I was able to get that the patient has had some urinary and stool incontinence recently. He does get this mostly at night but it evidently seem to be more than baseline. Exam: Patient is awake. He does not look toxic. But he does tend to rest and closes eyes easily. Mouth does look a little dry. His heart rate is a little quick and looks irregular. At times there appear to be P waves other times this looks to be atrial fibrillation which she does not have a known history of. He does not take real good deep breaths for me but I do not hear any higher wheezes. His saturations are normal at 94% on room air showing no hypoxia. Abdomen is soft and nontender. Extremities show no edema. She does have stool in his diaper area and up his back. It looks like it has been there for a little while. Medical Decision Making: Will have blood work, urine, x-ray as well as COVID testing done. Discharge Plan Triage Chief Complaint: Confusion ED Midlevel Provider: Corry Liao ED Provider: Daniele Cook Dx/Rx/DC Orders Clinical Impression: COVID-19, Generalized weakness Primary Care Provider: Finn Cheung Disposition Disposition: Acute Care Hospital [facility]
[2023-07-12] MEDS: 0.9% Normal Saline (1000mL) 1,000 ML 999 ML IV (19:00)
--- NOTE | 2023-07-12 19:35 | RAD_ITS ---
INDICATION: cough EXAMINATION/TECHNIQUE: X-RAY - XR Chest 1 View COMPARISON: July 27, 2022 FINDINGS: LINES/DEVICES: None. LUNGS: No consolidation, edema or effusion. Right basilar atelectasis. No pneumothorax. MEDIASTINUM AND CARDIOVASCULAR STRUCTURES: Cardiac silhouette not enlarged. Central airways and mediastinal contour are unremarkable. BONES AND SOFT TISSUES: Unremarkable. RAD/Chest 1 View (Portable) IMPRESSION: Right basilar atelectasis. Electronically Signed: Sung Gaviria DO at 20:10 EST ,
[2023-07-12 19:56] LABS: Absolute Lymphocyte Count 3.83 X10^3/uL (0.83-4.51); Absolute Neutrophil Count 10.8 X10^3/uL (2.0-7.7); Basophil# 0.03 X10^3/uL; Basophil% 0.2 % (0-1); Eosinophil# 0.04 X10^3/uL; Eosinophils% 0.3 % (0-5); Hematocrit 49.5 % (40-54); Hemoglobin 15.7 g/dL (13.0-16.5); Lymphocyte # 3.83 X10^3/ul (0.83-4.51); Lymphocyte % 24.6 % (19-41); Mean Corp Hgb Conc 31.7 g/dL (32-36); Mean Corpuscular Hgb 30.9 pg (27.0-32.0); Mean Corpuscular Volume 97.4 fL (80-94); Mean Platelet Vol. 10.5 fl (6.2-12.0); Monocyte# 0.84 X10^3/uL; Monocyte% 5.4 % (0-10); NRBC Flagged by Analyzer 0 % (0-5); Neutrophil # 10.76 X10^3/uL (2.7-7.7); Neutrophil % 69.1 % (47-70); Platelet Count 121 K/mm3 (150-450); RBC Distribution Width CV 13.7 % (11.6-14.6); RBC Distribution Width SD 49.4 fl (35.1-43.9); Red Blood Count 5.08 M/mm3 (4.6-6.2); White Blood Count 15.6 K/mm3 (4.4-11.0)
[2023-07-12 20:10] LABS: Alcohol, Blood (Medical)-Serum < 3.0 mg/dL
[2023-07-12 20:12] LABS: Anion Gap 3 (5-15); BUN 19 mg/dL (7-18); BUN/Creat Ratio 16.8 RATIO (10-20); Calcium,Total 8.4 mg/dL (8.5-10.1); Chloride 110 mmol/L (98-107); Creatinine, Serum 1.13 mg/dL (0.70-1.30); EST Glomerular Filtration Rate 65 mL/min (>60); Est Glom Filt Rate - Afr Amer 79 mL/min (>60); Estimated Creatinine Clearance 40.95 ml/min; Glucose 92 mg/dL (74-106); Potassium 3.6 mmol/L (3.5-5.1); Sodium Level 138 mmol/L (136-145)
[2023-07-12 20:44] LABS: Squamous Epithelial Cells - UA 0 SEEN /hpf (0-5); White Blood Cells 0 SEEN /hpf (0-5)
[2023-07-12 20:48] LABS: Color, Urine Yellow (Yellow); Glucose, Dipstick Normal (Normal); Ketone-Dipstick 50 mg/dl (Negative); Leukocyte Esterase-Dipstick 25 /ul (Negative); Nitrite-Dipstick Negative (Negative); Occult Blood-Urine 25 /ul (Negative); Protein-Dipstick 30 mg/dl (Negative); Specific Gravity, Urine 1.025 (1.002-1.030); Urine Clarity Clear (Clear); Urine Urobilinogen 1 mg/dl (Normal)
[2023-07-12 20:49] LABS: Urine Bilirubin Dipstick 1 mg/dL (Negative)
[2023-07-12 21:01] LABS: Lactic Acid 1.9 mmol/L (0.4-1.9)
[2023-07-12 21:06] LABS: Bacteria 0 SEEN /hpf (None Seen); Mucous, Urine 1+ /hpf (<or=2+); Red Blood Cells-Urine 0-5 SEEN /hpf (0-5)
--- NOTE | 2023-07-12 21:13 | HP.PCM.HOS_ITS ---
[facility] - General General Date of Admission: 07/12/23 Date of Service: 07/12/23 Chief Complaint: Altered Mental Status, Generalized Weakness and Cough HPI Narrative ROMANA VEE, is a 87 M with a past medical history of essential hypertension, h yperlipidemia, history of Alzheimer's dementia; on Namenda and Donepezil, history of previous tobacco abuse, history of alcohol abuse; now residing at assisted living with his and no longer drinking, BPH, depression with anxiety, history of appendectomy and OA; with bilateral shoulder pain and lumbar radiculopathy; with history of back surgery who presents to [facility] ER complaining of altered mental status, generalized weakness and cough. Mr. Vee is not a reliable historian at this time no information was gathered from chart, medical staff and computer. According to the records from the [facility] he has been noted to have generalized weakness and cough complicated by urinary and bowel incontinence. Then earlier today on July 12, 2023 he was noted to have worsening confusion so EMS was activated. His blood alcohol level was undetectable. In the ER he tested positive for COVID-19 with leukocytosis of 15.6 present on admission complicated by laboratory evidence of moderate thrombocytopenia 121 present on admission compounded by clinical evidence of acute delirium in the setting of chronic dementia along with generalized weakness and he was then admitted to the general medical floor under contact and droplet precautions for treatment under the COVID protocol for a stay that expected to be greater than [address] [facility] Medical History Alcohol abuse Alcoholism Alzheimer's dementia Anxiety and depression Benign prostatic hypertrophy Dementia Desire for detoxification Former tobacco use Hyperlipidemia Hypertension Impingement of right shoulder Left lumbar radiculopathy Left shoulder pain Mild dementia Primary osteoarthritis, left shoulder Right shoulder pain Unable to care for self Home Medications atorvastatin 20 mg tablet 10 mg PO QHS cholesterol 01/18/16 [History Last Taken Unknown] donepezil 10 mg tablet 10 mg PO QHS memory 10/30/19 [History Last Taken Unknown] finasteride 5 mg tablet 5 mg PO DAILY prostate 10/30/19 [History Last Taken Unknown] meloxicam 15 mg tablet 15 mg PO DAILY pain 10/30/19 [History Last Taken Unknown] tamsulosin 0.4 mg capsule 0.4 mg PO DINNER prostate 10/30/19 [History Last Taken Unknown] acetaminophen 500 mg capsule 500 mg PO Q6H PRN fever or pain 11/07/22 [History Last Taken Unknown] doxycycline hyclate 100 mg capsule 100 mg PO DAILY dysfunction of eyelid 11/07/22 [History Last Taken Unknown] fluticasone propionate 50 mcg/actuation nasal spray,suspension (Flonase Allergy Relief) 1 spray intranasal DAILY allergies 11/07/22 [History Last Taken Unknown] gabapentin 300 mg capsule 300 mg PO BID nerve pain 11/07/22 [History Last Taken Unknown] guaifenesin 600 mg tablet, extended release 12 hr (Mucinex) 600 mg PO BID PRN cough 11/07/22 [History Last Taken Unknown] ibuprofen 200 mg capsule 400 mg PO Q6H PRN pain 11/07/22 [History Last Taken Unknown] ketotifen fumarate 0.025 % (0.035 %) eye drops (Alaway) 1 drp ophthalmic (eye) BID eyelid 11/07/22 [History Last Taken Unknown] loratadine 10 mg tablet (Claritin) 10 mg PO DAILY allergies 11/07/22 [History Last Taken Unknown] memantine 10 mg tablet (Namenda) 10 mg PO BID pain 11/07/22 [History Last Taken Unknown] omeprazole 20 mg capsule,delayed release 20 mg PO DAILY indigestion 11/07/22 [History Last Taken Unknown] clotrimazole-betamethasone 1 %-0.05 % topical cream 1 applic topical Q12H irritation to groin 07/12/23 [History Last Taken Unknown] erythromycin 5 mg/gram (0.5 %) eye ointment 1 applic ophthalmic (eye) [facility] eye health 07/12/23 [History Last Taken Unknown] lisinopril 10 mg tablet 10 mg PO DAILY bp 07/12/23 [History Last Taken Unknown] zinc oxide 20 % topical ointment 1 applic topical DAILY irritation 07/12/23 [History Last Taken Unknown] Allergy/AdvReac Type Severity Reaction Status Date / Time Benzodiazepines Allergy PT UNSURE Verified 07/12/23 18:36 OF REACTION losartan Allergy PT UNSURE Verified 07/12/23 18:36 OF REACTION morphine Allergy PT UNSURE Verified 07/12/23 18:36 OF REACTION Family History Other Diabetes Pancreatic cancer Surgical History Hx of appendectomy Previous back surgery Social History Smoking Status: Former smoker alcohol intake: current ROS ROS Narrative Patient has chronic Alzheimer's dementia complicated by acute delirium with metabolic encephalopathy so for review of systems was not possible at this time. Review of Systems ROS Unobtainable: due to encephalopathy Vital Signs Vital Signs Vital Signs: 07/12/23 18:29 Temperature 98.9 F Temperature Source Oral Pulse Rate 119 H Respiratory Rate 23 H Blood Pressure 149/98 H Blood Pressure Mean 115 Pulse Ox 94 Oxygen Delivery Method Room Air Weight Weight: 136 lb 0.403 oz Body Mass Index (BMI) 21.9 Physical Exam Const alert, no apparent distress and average body habitus General Appearance: cooperative Orientation / Consciousness: confused and lethargic HEENT normocephalic, head/scalp atraumatic, hearing grossly normal bilaterally, moist oral mucous membranes and oropharynx normal Eyes PERRL and EOMs intact bilaterally Neck no lymphadenopathy and supple Resp Resp Narrative: Diminished breath sounds throughout. Cardio regular rate and regular rhythm GI normal to inspection, nondistended, normoactive bowel sounds, soft to palpation, non-tender and non-distended Extremity normal to inspection, full ROM and no clubbing, cyanosis or edema Neuro CN's II-XII intact bilaterally, moves all extremities and no focal motor deficits Sensorium / Orientation: awake, alert and oriented to person Speech: speech normal Motor Exam: strength 5/5 throughout Psych affect normal Results Medical Records Data Attestation: I reviewed the patient's medical records Lab / Micro Data Attestation: I reviewed the patient's lab results. 07/12/23 19:45 07/12/23 19:45 Labs: Laboratory Results - last 24 hr 07/12/23 19:45: WBC 15.6 H, RBC 5.08, Hgb 15.7, Hct 49.5, MCV 97.4 H, MCH 30.9, MCHC 31.7 L, RDW Std Deviation 49.4 H, RDW Coeff of Shannon 13.7, Plt Count 121 L, MPV 10.5, Immature Gran % (Auto) 0.400, Neut % (Auto) 69.1, Lymph % (Auto) 24.6, [place] % (Auto) 5.4, Eos % (Auto) 0.3, Baso % (Auto) 0.2, Absolute Neuts (auto) 10.8 H, Absolute Lymphs (auto) 3.83, Nucleated RBC % 0, Sodium 138, Potassium 3.6, Chloride 110 H, Carbon Dioxide 25.0, Anion Gap 3 L, BUN 19 H, Creatinine 1.13, Estim Creat Clear Calc 40.95, Est GFR (MDRD) Af Amer 79, Est GFR (MDRD) Non-Af 65, BUN/Creatinine Ratio 16.8, Glucose 92, Lactic Acid 1.9, Calcium 8.4 L , Ethyl Alcohol < 3.0 07/12/23 20:40: Urine Color Yellow, Urine Clarity Clear, Urine pH 6.0, Ur Specific [place] 1.025, Urine Protein 30 H, Urine Glucose (UA) Normal, Urine Ketones 50 H, Urine Occult Blood 25 H, Urine Nitrite Negative, Urine Bilirubin 1 H, Urine Urobilinogen 1 H, Ur Leukocyte Esterase 25 H, Urine RBC 0-5 SEEN, Urine WBC 0 SEEN, Ur Squamous Epith Cells 0 SEEN, Urine Bacteria 0 SEEN, Urine Mucus 1+ Micro: Microbiology 07/12/23 18:43 Nasal Secretion SARS-CoV-2 & FLU Antigen (Rapid) - Final SARS-CoV-2 (COVID 19) Imagaing Radiology Impression Chest X-Ray 07/12/23 19:35 IMPRESSION: Right basilar atelectasis. Electronically Signed: Sung Gaviria DO at 20:10 EST Reading Location ID and State: [address] [place] [address] Tel [phone], Service support , Assessment & Plan Assessment/Plan (1) COVID-19: (2) Acute hyperactive delirium due to another medical condition: (3) Alzheimer's dementia: QUALIFIERS: Alzheimer's disease onset: late onset Dementia behavioral or psychological symptom: without behavioral, psychotic, or mood disturbance or anxiety Dementia severity: unspecified severity Qualified Code(s): G30.1 - Alzheimer's disease with late onset; F02.80 - Dementia in other diseases classified elsewhere, unspecified severity, without behavioral disturbance, psychotic disturbance, mood disturbance, and anxiety (4) Generalized weakness: PLAN: Plan 1. Acute COVID-19 infection with leukocytosis of 15.6 present on admission - Admit to general medical floor under droplet and contact precautions. Continue IV Decadron and nebulizers plus and IV doxycycline. Give vitamin D3, vitamin C and zinc to optimize immune response. Give Tylenol as needed for pain or fever. 2. Acute delirium in the setting of chronic Alzheimer's dementia arising from #1 - Continue supportive care outlined above and monitor for improvement. Minimize NS-active medications. Check B12, folate and TSH to evaluate for potential reversible causes of confusion in this elderly patient. Continue Namenda and Donepezil as previous. 3. Generalized weakness due to #1 & #2 in the setting of known OA; with bila teral shoulder pain and lumbar radiculopathy; with history of back surgery - PT/OT and case management to consult and treat in the a.m. on rounds with help appreciated in advance. 4. Essential hypertension - Resume home regimen as previous plus give prn IV Hydralazine for systolic blood pressure > 160 mm Hg. 5. Hyperlipidemia - Continue statin as previous. 6. History of previous tobacco abuse - Noted. 7. History of alcohol abuse; now residing at assisted living with his and no longer drinking - Stable with negative ILANA on admission. 8. BPH - Resume current regimen with Tamsulosin, Finasteride and Saw Blakely. 9. Depression with anxiety - Continue current regimen. 10. History of appendectomy - Noted. 11. DVT prophylaxis - Lovenox 40 mg sq BID in light of #1 plus add SCD's. Watch platelet count on daily CBC and stop Lovenox in case level < 100. Total Time: Approximately 55 minutes. Charges/Coding Visit Charges Inpatient E&M: 09484 Init Hosp L2
--- NOTE | 2023-07-12 21:23 | ED.RN ---
this nurse was straight cath pt and pt scrotum and penis bright red, excoriated and pt was incontinent of stool, stool was dried and caked on pt's back, buttocks, and scrotum. this nurse provided incontinent care with anne-marie solitario rn, and barrier cream was applied to excoriated areas, and fresh attends on pt. pt tolerated well. at 2100 this nurse called [facility] at [phone] to inform pt is positive for covid. spoke with gt. pt is assigned to assisted living, no number available to call pt's . this nurse spoke with pt's son-in-law mr. burk, then informed Shalini Burk, daughter, that pt will be admitted and drug abuse social worker may reach out tomorrow for placement in detention.
[2023-07-12 22:01] VITALS: BP 139/78; PULSE 112; RESP 18; O2SAT 94; BMI 21.4
[2023-07-12 22:24] VITALS: BP 153/92; PULSE 103; RESP 20; TEMP 37.2; O2SAT 96
[2023-07-12 22:46] LABS: Thyroid Stim Hormone (TSH) 0.94 uIU/mL (0.358-3.74)
[2023-07-12 23:45] VITALS: RESP 20
[2023-07-13] MEDS: Atorvastatin Calcium 20 MG Tablet PO ×2 (00:25→22:45)
[2023-07-13] MEDS: dexAMETHasone 10 MG/ML Vial 6 MG IV (00:25)
[2023-07-13] MEDS: Doxycycline 100 MG in Dextrose 5%-Water (250mL Bag) 250 ML 250 MG IV (00:25)
[2023-07-13] MEDS: Gabapentin 300 MG Capsule PO ×3 (00:25→22:45)
[2023-07-13] MEDS: Memantine Hydrochloride 10 MG Tablet PO ×3 (00:25→22:45)
[2023-07-13] MEDS: Cholecalciferol (Vit D3) 125 MCG CAPSULE (5,000 UNITS) PO ×2 (00:25→10:12)
[2023-07-13 02:18] VITALS: BP 154/89; PULSE 98; RESP 20; TEMP 36.6; O2SAT 95
[2023-07-13 08:57] LABS: Vitamin B12 237 pg/mL (211-911)
--- NOTE | 2023-07-13 09:46 | PCM.PN.HOSP ---
Reason for Visit Reason for Visit: Generalized weakness/cough/altered mental status Subjective Subjective Patient is a an 87-year-old male who presented from [facility] to the emergency department [facility] on 07/12/2023 due to increased weakness, cough, and increased confusion. The patient was only oriented to self on presentation and reported he had no pain and denied any specific complaints. Upon presentation he was found to have a temperature of 98.9, heart rate was 119, blood pressure was 149/98, respiratory was 23 and oxygen saturations were 94% on room air. CBC revealed a leukocytosis with a white count of 15.6 but no left shift was present. Chemistry panel was overall unremarkable other than showing some may be mild dehydration with a slightly elevated BUN. His rapid COVID test was positive. Influenza was negative. He was admitted to the medical floor and started on IV Decadron, nebulizers, IV doxycycline and started on vitamin D3, vitamin C, and zinc to optimize his immune function. Patient has no real complaints. Denies any issues. Objective Data Objective Data Vital Signs: Vital Signs Temp Pulse Resp BP Pulse Ox O2 Del Method 98 F 98 20 H 154/89 H 95 Room Air 07/13/23 02:18 07/13/23 02:18 07/13/23 02:18 07/13/23 02:18 07/13/23 02:18 07/13/23 02:18 Oxygen Delivery Method Room Air Weight: 60.441 kg Body Mass Index (BMI) 21.4 Intake & Output: Intake and Output for Last 24 Hours 07/11/23 07/12/23 07/13/23 23:59 23:59 23:59 Intake Total 1000 / 1000 260 / 260 Output Total 650 / 650 Balance 1000 / 1000 -390 / -390 Lab / Micro Data 07/12/23 19:45 07/12/23 19:45 Labs: Laboratory Results - last 24 hr 07/12/23 19:45: WBC 15.6 H, RBC 5.08, Hgb 15.7, Hct 49.5, MCV 97.4 H, MCH 30.9, MCHC 31.7 L, RDW Std Deviation 49.4 H, RDW Coeff of Shannon 13.7, Plt Count 121 L, MPV 10.5, Immature Gran % (Auto) 0.400, Neut % (Auto) 69.1, Lymph % (Auto) 24.6, [place] % (Auto) 5.4, Eos % (Auto) 0.3, Baso % (Auto) 0.2, Absolute Neuts (auto) 10.8 H, Absolute Lymphs (auto) 3.83, Nucleated RBC % 0, Sodium 138, Potassium 3.6, Chloride 110 H, Carbon Dioxide 25.0, Anion Gap 3 L, BUN 19 H, Creatinine 1.13, Estim Creat Clear Calc 40.95, Est GFR (MDRD) Af Amer 79, Est GFR (MDRD) Non-Af 65, BUN/Creatinine Ratio 16.8, Glucose 92, Lactic Acid 1.9, Calcium 8.4 L, Vitamin B12 237, Folate 7.10, TSH 0.94, Ethyl Alcohol < 3.0 07/12/23 20:40: Urine Color Yellow, Urine Clarity Clear, Urine pH 6.0, Ur Specific [place] 1.025, Urine Protein 30 H, Urine Glucose (UA) Normal, Urine Ketones 50 H, Urine Occult Blood 25 H, Urine Nitrite Negative, Urine Bilirubin 1 H, Urine Urobilinogen 1 H, Ur Leukocyte Esterase 25 H, Urine RBC 0-5 SEEN, Urine WBC 0 SEEN, Ur Squamous Epith Cells 0 SEEN, Urine Bacteria 0 SEEN, Urine Mucus 1+ Micro: Microbiology 07/12/23 18:43 Nasal Secretion SARS-CoV-2 & FLU Antigen (Rapid) - Final SARS-CoV-2 (COVID 19) Radiography Diagnostic Testing: Radiology Impression Chest X-Ray 07/12/23 19:35 IMPRESSION: Right basilar atelectasis. Electronically Signed: Sung Gaviria DO at 20:10 EST Reading Location ID and State: [address] [place] [address] Tel [phone], Service support , Physical Exam Const alert, average body habitus and well nourished Constitutional Narrative: Elderly, white male, sitting up in bed, oriented to self only, appears comfortable nontoxic, currently on room air HEENT head/scalp atraumatic and moist oral mucous membranes HEENT Narrative: Dentition is poor, Mallampati is 2, no thrush Head and Scalp: normocephalic Resp normal respiratory effort, no retractions, no use of accessory muscles and clear to auscultation bilaterally Auscultation: Negative for rales, rhonchi or wheezes Cardio regular rate, regular rhythm, S1 normal heart sound, S2 normal heart sound, no murmurs, no rub, no gallops and no clicks GI normal to inspection, nondistended, normoactive bowel sounds, soft to palpation and non-tender Extremity no clubbing, cyanosis or edema Extremity Narrative: Pedal pulses are 2+ Neuro CN's II-XII intact bilaterally, moves all extremities and no focal motor deficits Sensorium / Orientation: awake, alert and oriented to person Speech: speech normal Psych affect normal Psych Narrative: Extremely pleasant, confused, interacts appropriately Assessment & Plan Assessment/Plan (1) COVID-19: (2) Generalized weakness: (3) Toxic metabolic encephalopathy: PLAN: Plan Acute COVID-19 infection -The patient is not and has not been hypoxic -Discontinue Decadron -Chest x-ray does not show infiltrate and patient does not present with left shift -Okay to continue vitamins for immune support/function optimization -No need for remdesivir -Continue to watch oxygen saturations -If patient remains stable from a respiratory standpoint is likely able to be discharged tomorrow back to his nursing facility -This is likely the etiology for his acute confusion and generalized weakness Generalized weakness -Likely related to the above -PT/OT consultation -Will need discharge back to skilled facility Toxic/metabolic encephalopathy with underlying dementia -Dementia symptoms likely worsened due to above infection -Continue supportive care -Continue to monitor -Baseline mental status is unclear however on presentation he was oriented to self Hypertension/hyperlipidemia -Continue statin -Continue lisinopril BPH -Continue Flomax GERD -Continue home PPI Neuropathy -Continue home gabapentin Eyelid infection -Continue home doxycycline -Continue home topicals Dementia -Continue home Namenda -Continue home Aricept -Watch heart rate History of alcohol abuse/tobacco abuse -Remote DVT prophylaxis -Start enoxaparin 40 daily CODE STATUS DNR CCA with no intubation Charges/Coding Visit Charges Inpatient E&M: 60776 Subs Hosp L2
[2023-07-13 10:08] VITALS: BP 125/74; PULSE 101; RESP 18; TEMP 36.5; O2SAT 97
[2023-07-13] MEDS: Pantoprazole Sodium 20 MG Tablet PO (10:11)
[2023-07-13] MEDS: Zinc Sulfate 50 mg zinc (220 mg) ORAL capsule PO (10:11)
[2023-07-13] MEDS: Donepezil HCl 10 MG Tablet PO (10:12)
[2023-07-13] MEDS: Meloxicam 15 MG Tablet PO (10:12)
[2023-07-13] MEDS: Thiamine Hydrochloride 100 MG Tablet PO (10:12)
[2023-07-13] MEDS: Folic Acid 1 MG Tablet PO (10:12)
[2023-07-13] MEDS: Loratadine 10 MG Tablet PO (10:12)
[2023-07-13] MEDS: Finasteride 5 MG Tablet PO (10:13)
[2023-07-13] MEDS: Potassium Chloride Oral Tablet 20 MEQ PO (10:13)
[2023-07-13] MEDS: Fluticasone 0.05% 1 SPRAY NASAL.SRY NASAL (10:13)
[2023-07-13] MEDS: Ascorbic Acid 500 MG Tablet 1000 MG PO ×2 (10:13→17:22)
[2023-07-13] MEDS: Enoxaparin 40 MG/0.4 ML Syringe SC (12:32)
[2023-07-13] MEDS: Doxycycline 100 MG CAPSULE PO (12:33)
[2023-07-13] MEDS: Menthol/Lanolin/Calamine/Znox 113 GM Tube 1 APPLIC TOPICAL ×2 (15:48→22:45)
[2023-07-13 15:51] VITALS: BP 126/78; PULSE 82; RESP 18; TEMP 36.6; O2SAT 99
[2023-07-13] MEDS: Tamsulosin HCl 0.4 MG Capsule PO (17:22)
[2023-07-13 22:43] VITALS: BP 141/84; PULSE 93; RESP 18; TEMP 36.4; O2SAT 98
[2023-07-14] VITALS (8 sets, daily range): BP systolic 118–153; BP diastolic 74–99; PULSE 69–94; RESP 16–18; TEMP 36.3–36.7; O2SAT 95–100
[2023-07-14] MEDS: Menthol/Lanolin/Calamine/Znox 113 GM Tube 1 APPLIC TOPICAL ×3 (04:56→22:57)
[2023-07-14 08:37] LABS: Basophil# 0.01 X10^3/uL; Basophil% 0.1 % (0-1); Eosinophil# 0.12 X10^3/uL; Hemoglobin 14.4 g/dL (13.0-16.5); Lymphocyte % 29.3 % (19-41); Mean Corpuscular Hgb 30.7 pg (27.0-32.0); Mean Corpuscular Volume 95.9 fL (80-94); Mean Platelet Vol. 11.5 fl (6.2-12.0); Monocyte# 0.55 X10^3/uL; Monocyte% 4.5 % (0-10); NRBC Flagged by Analyzer 0 % (0-5); Neutrophil # 7.96 X10^3/uL (2.7-7.7); Neutrophil % 64.7 % (47-70); Platelet Count 142 K/mm3 (150-450); RBC Distribution Width CV 13.8 % (11.6-14.6); RBC Distribution Width SD 48.5 fl (35.1-43.9); Red Blood Count 4.69 M/mm3 (4.6-6.2); White Blood Count 12.3 K/mm3 (4.4-11.0)
--- NOTE | 2023-07-14 08:49 | CASEMGMT ---
Discharge Planning Updates faxed to [facility]. Therapy evals will need sent when available. Kimberly Shah, Discharge Planning Asst.
[2023-07-14 09:11] LABS: Anion Gap 5 (5-15); BUN 31 mg/dL (7-18); BUN/Creat Ratio 27.4 RATIO (10-20); Calcium,Total 8.7 mg/dL (8.5-10.1); Chloride 113 mmol/L (98-107); Creatinine, Serum 1.13 mg/dL (0.70-1.30); EST Glomerular Filtration Rate 65 mL/min (>60); Est Glom Filt Rate - Afr Amer 79 mL/min (>60); Estimated Creatinine Clearance 40.12 ml/min; Glucose 87 mg/dL (74-106); Magnesium 1.8 mg/dL (1.6-2.6); Phosphorus 2.5 mg/dL (2.5-4.9); Potassium 3.7 mmol/L (3.5-5.1); Sodium Level 141 mmol/L (136-145)
[2023-07-14] MEDS: Potassium Chloride Oral Tablet 20 MEQ PO (11:49)
[2023-07-14] MEDS: Ascorbic Acid 500 MG Tablet 1000 MG PO ×2 (11:49→16:51)
[2023-07-14] MEDS: Meloxicam 15 MG Tablet PO (11:49)
[2023-07-14] MEDS: Enoxaparin 40 MG/0.4 ML Syringe SC (11:49)
[2023-07-14] MEDS: Thiamine Hydrochloride 100 MG Tablet PO (11:50)
[2023-07-14] MEDS: Pantoprazole Sodium 20 MG Tablet PO (11:50)
[2023-07-14] MEDS: Finasteride 5 MG Tablet PO (11:50)
[2023-07-14] MEDS: Memantine Hydrochloride 10 MG Tablet PO ×2 (11:50→22:57)
[2023-07-14] MEDS: Folic Acid 1 MG Tablet PO (11:53)
[2023-07-14] MEDS: Gabapentin 300 MG Capsule PO ×2 (11:54→22:57)
[2023-07-14] MEDS: Doxycycline 100 MG CAPSULE PO (11:54)
[2023-07-14] MEDS: Donepezil HCl 10 MG Tablet PO (11:54)
[2023-07-14] MEDS: Cholecalciferol (Vit D3) 125 MCG CAPSULE (5,000 UNITS) PO (12:11)
[2023-07-14] MEDS: Zinc Sulfate 50 mg zinc (220 mg) ORAL capsule PO (12:11)
[2023-07-14] MEDS: Loratadine 10 MG Tablet PO (12:11)
[2023-07-14] MEDS: Fluticasone 0.05% 1 SPRAY NASAL.SRY NASAL (12:11)
--- NOTE | 2023-07-14 15:01 | PN.HOSP_ITS ---
Reason for Visit Reason for Visit: Acute confusion Subjective Subjective No issues overnight. Patient frequently asks where his is. Denies any complaints. Objective Data Objective Data Vital Signs: Vital Signs Temp Pulse Resp BP Pulse Ox O2 Del Method O2 Flow Rate 97.5 F L 88 18 123/76 H 100 Room Air 0 07/14/23 12:01 07/14/23 12:01 07/14/23 12:01 07/14/23 12:01 07/14/23 12:07/14/23 12:01 07/14/23 11:58 Oxygen Flow Rate (L/min) [ 0 AMBULATING on Room Air] Oxygen Flow Rate (L/min) [At 0 REST on Room Air] Oxygen Delivery Method Room Air Weight: 60.44 kg Body Mass Index (BMI) 21.4 Intake & Output: Intake and Output for Last 24 Hours 07/12/23 07/13/23 07/14/23 23:59 23:59 23:59 Intake Total 1000 / 1000 1550 / 1550 450 / 450 Output Total 650 / 650 300 / 300 Balance 1000 / 1000 900 / 900 150 / 150 Lab / Micro Data 07/14/23 07:21 07/14/23 07:21 Labs: Laboratory Results - last 24 hr 07/14/23 07:21: WBC 12.3 H, RBC 4.69, Hgb 14.4, Hct 45.0, MCV 95.9 H, MCH 30.7, MCHC 32.0, RDW Std Deviation 48.5 H, RDW Coeff of Shannon 13.8, Plt Count 142 L, MPV 11.5, Immature Gran % (Auto) 0.400, Neut % (Auto) 64.7, Lymph % (Auto) 29.3, [place] % (Auto) 4.5, Eos % (Auto) 1.0, Baso % (Auto) 0.1, Absolute Neuts (auto) 8.0 H, Absolute Lymphs (auto) 3.60, Nucleated RBC % 0, Sodium 141, Potassium 3.7, Chloride 113 H, Carbon Dioxide 23.0, Anion Gap 5, BUN 31 H, Creatinine 1.13, Estim Creat Clear Calc 40.12, Est GFR (MDRD) Af Amer 79, Est GFR (MDRD) Non-Af 65, BUN/Creatinine Ratio 27.4 H, Glucose 87, Calcium 8.7, Phosphorus 2.5, Magnesium 1.8 Micro: Microbiology 07/12/23 18:43 Nasal Secretion SARS-CoV-2 & FLU Antigen (Rapid) - Final SARS-CoV-2 (COVID 19) Physical Exam Const alert, no apparent distress, average body habitus and well nourished Constitutional Narrative: Elderly, white male, sitting up in bed and watching television, oriented to self only, appears comfortable nontoxic, currently on room air General Appearance: cooperative Orientation / Consciousness: confused HEENT normocephalic and head/scalp atraumatic Resp normal respiratory effort, no retractions, no use of accessory muscles and clear to auscultation bilaterally Auscultation: Negative for rales, rhonchi or wheezes Psych affect normal Psych Narrative: Extremely pleasant, confused, interacts appropriately Assessment & Plan Assessment/Plan (1) COVID-19: (2) Generalized weakness: (3) Toxic metabolic encephalopathy: PLAN: Plan Acute COVID-19 infection -Patient remains stable on room air with oxygen saturations 100% -Chest x-ray does not show infiltrate and patient does not present with left shift -Okay to continue vitamins for immune support/function optimization -Patient medically stable for discharge however awaiting pre-CERT Generalized weakness -Likely related to the above -PT/OT following and they do indicate he will need SNF upon return -Social work is involved) currently awaiting pre-CERT Toxic/metabolic encephalopathy with underlying dementia -Dementia symptoms likely worsened due to above infection -Continue supportive care -Continue to monitor -Patient seems like he is back to baseline Thrombocytopenia -Mild -Suspect related to COVID-19 infection -Trending up Hypertension/hyperlipidemia -Continue statin -Continue lisinopril BPH -Continue Flomax GERD -Continue home PPI Neuropathy -Continue home gabapentin Eyelid infection -Continue home doxycycline -Continue home topicals Dementia -Continue home Namenda -Continue home Aricept -Watch heart rate History of alcohol abuse/tobacco abuse -Remote DVT prophylaxis -Start enoxaparin 40 daily CODE STATUS DNR CCA with no intubation Disposition: -Patient is now on 07/14/2023 medically stable for discharge however awaiting pre-CERT for senior living facility Charges/Coding Visit Charges Inpatient E&M: 14869 Subs Hosp L1
[2023-07-14] MEDS: Tamsulosin HCl 0.4 MG Capsule PO (16:51)
--- NOTE | 2023-07-14 17:29 | CASEMGMT ---
Social Work Chart reviewed and noted patient is from [facility] assisted living. Spoke with PT/OT today who report patient did well functionally with therapy, it is more patient's mentation which would be the factor in disposition. Spoke with patient's daughter Bessy Head today ([phone]) who reports herself and patient's two other children are in communication with one another. Bessy reports the children would like to see patient go over to [facility] nursing facility to care for patient's skin issues, and then when healed up would like to try patient back at [facility] one more time. Patient and patient's are together at [facility], and the children are trying to keep patient/ together as long as possible. Patient does have funding for assisted living until April of 2024, so were hoping to keep residence intact for a bit longer. Bessy reports the children were paying for AM and PM care for patient since June, and learned this extra care being paid for was not being provided, as patient would say didn't' need it and would support the lack of care. Bessy reports this was not being communicated to the children. Bessy reports patient's son plans to talk with [facility] about children's concerns and expectations for future care at the [facility]. No indicated for list of SNF choices as family wants to keep patient as close to patient's as possible, which would be at [facility]. Bessy does indicate would like to have a list of private duty home care agencies, so children can consider hiring private care at [facility], whenever patient may be at the point to return. Emailed via secure email list of private duty home care options to Bessy at confirmed email: [email or web address]. Updated Kimberly, Discharge histology assistant, who will send referral over to [facility]. This grant writer left a message for Damir in admissions at [facility] and Zoran, nursing specialist at [facility], about family's wishes and computer terminal operator intention for patient to have one more try at the [place], once time at the SNF is finished. 7000 convalescent form started in the [facility]. Plan: [facility], referral pending. -MAXWELL Vasquez
--- NOTE | 2023-07-14 17:45 | CASEMGMT ---
Advanced Directive Validation Patient's POAHC is scanned into the patient's medical record. Patient's 3 children are listed on the document in this order: Valente (lives in [place]), Bessy ([place]), and Shalini (local to [facility]). Called Zoran, landfill gas collection operator at [facility] and inquired about a Living Will. Zoran faxed this check writer a copy of Living Will, which has now been placed into the patient's chart, to be scanned into the electronic medical records at discharge. -MAXWELL Vasquez
[2023-07-14] MEDS: MELATONIN 3 MG TABLET PO (22:56)
[2023-07-14] MEDS: Atorvastatin Calcium 20 MG Tablet PO (22:57)
[2023-07-15 04:16] VITALS: BP 148/91; PULSE 77; RESP 18; TEMP 36.9; O2SAT 100
[2023-07-15] MEDS: Menthol/Lanolin/Calamine/Znox 113 GM Tube 1 APPLIC TOPICAL ×3 (04:19→21:20)
[2023-07-15 08:40] LABS: Anion Gap 5 (5-15); BUN 31 mg/dL (7-18); BUN/Creat Ratio 26.7 RATIO (10-20); Calcium,Total 8.2 mg/dL (8.5-10.1); Chloride 112 mmol/L (98-107); Creatinine, Serum 1.16 mg/dL (0.70-1.30); EST Glomerular Filtration Rate 63 mL/min (>60); Est Glom Filt Rate - Afr Amer 77 mL/min (>60); Estimated Creatinine Clearance 39.08 ml/min; Glucose 88 mg/dL (74-106); Potassium 3.7 mmol/L (3.5-5.1); Sodium Level 140 mmol/L (136-145)
[2023-07-15] MEDS: Cholecalciferol (Vit D3) 125 MCG CAPSULE (5,000 UNITS) PO (09:26)
[2023-07-15] MEDS: Memantine Hydrochloride 10 MG Tablet PO ×2 (09:26→21:20)
[2023-07-15] MEDS: Ascorbic Acid 500 MG Tablet 1000 MG PO ×2 (09:26→16:09)
[2023-07-15] MEDS: Folic Acid 1 MG Tablet PO (09:26)
[2023-07-15] MEDS: Pantoprazole Sodium 20 MG Tablet PO (09:26)
[2023-07-15] MEDS: Doxycycline 100 MG CAPSULE PO (09:26)
[2023-07-15] MEDS: Loratadine 10 MG Tablet PO (09:26)
[2023-07-15] MEDS: Enoxaparin 40 MG/0.4 ML Syringe SC (09:26)
[2023-07-15] MEDS: Gabapentin 300 MG Capsule PO ×2 (09:27→21:20)
[2023-07-15] MEDS: Zinc Sulfate 50 mg zinc (220 mg) ORAL capsule PO (09:27)
[2023-07-15] MEDS: Finasteride 5 MG Tablet PO (09:27)
[2023-07-15] MEDS: Donepezil HCl 10 MG Tablet PO (09:27)
[2023-07-15] MEDS: Thiamine Hydrochloride 100 MG Tablet PO (09:27)
[2023-07-15] MEDS: Potassium Chloride Oral Tablet 20 MEQ PO (09:27)
[2023-07-15] MEDS: Meloxicam 15 MG Tablet PO (09:27)
[2023-07-15] MEDS: Fluticasone 0.05% 1 SPRAY NASAL.SRY NASAL (09:28)
[2023-07-15 10:15] VITALS: BP 143/83; PULSE 65; RESP 16; TEMP 36.7; O2SAT 100
[2023-07-15] MEDS: Tamsulosin HCl 0.4 MG Capsule PO (16:09)
[2023-07-15 16:15] VITALS: BP 122/87; PULSE 92; RESP 18; TEMP 36.9; O2SAT 100
--- NOTE | 2023-07-15 16:42 | PN.HOSP_ITS ---
Reason for Visit Reason for Visit: Acute confusion Subjective Subjective No issues overnight. Patient anxious to get back to the skilled nursing to see his . Denies any complaints. Objective Data Objective Data Vital Signs: Vital Signs Temp Pulse Resp BP Pulse Ox O2 Del Method O2 Flow Rate 98.4 F 92 18 122/87 H 100 Room Air 0 07/15/23 16:15 07/15/23 16:15 07/15/23 16:15 07/15/23 16:15 07/15/23 16:15 07/15/23 16:15 07/14/23 11:58 Oxygen Flow Rate (L/min) [ 0 AMBULATING on Room Air] Oxygen Flow Rate (L/min) [At 0 REST on Room Air] Oxygen Delivery Method Room Air Weight: 60.44 kg Body Mass Index (BMI) 21.4 Intake & Output: Intake and Output for Last 24 Hours 07/13/23 07/14/23 07/15/23 23:59 23:59 23:59 Intake Total 1550 / 1550 1400 / 1400 450 / 450 Output Total 650 / 650 300 / 300 Balance 900 / 900 1100 / 1100 450 / 450 Lab / Micro Data 07/14/23 07:21 07/15/23 06:56 Labs: Laboratory Results - last 24 hr 07/15/23 06:56: Sodium 140, Potassium 3.7, Chloride 112 H, Carbon Dioxide 23.0, Anion Gap 5, BUN 31 H, Creatinine 1.16, Estim Creat Clear Calc 39.08, Est GFR (MDRD) Af Amer 77, Est GFR (MDRD) Non-Af 63, BUN/Creatinine Ratio 26.7 H, Glucose 88, Calcium 8.2 L Micro: Microbiology 07/12/23 18:43 Nasal Secretion SARS-CoV-2 & FLU Antigen (Rapid) - Final SARS-CoV-2 (COVID 19) Physical Exam Const alert Constitutional Narrative: Elderly, white male, sitting up in bed and watching television, oriented to self only, appears comfortable nontoxic, currently on room air Orientation / Consciousness: confused HEENT normocephalic and head/scalp atraumatic Resp normal respiratory effort, no retractions, no use of accessory muscles and clear to auscultation bilaterally Auscultation: Negative for rales, rhonchi or wheezes Neuro Sensorium / Orientation: awake, alert and oriented to person Speech: speech normal Psych affect normal Psych Narrative: Extremely pleasant, confused, interacts appropriately Assessment & Plan Assessment/Plan (1) COVID-19: (2) Generalized weakness: (3) Toxic metabolic encephalopathy: PLAN: Plan Acute COVID-19 infection -Patient remains stable on room air with oxygen saturations 100% -Chest x-ray does not show infiltrate and patient does not present with left shift -Okay to continue vitamins for immune support/function optimization -Patient medically stable for discharge however awaiting pre-CERT Generalized weakness -Likely related to the above -PT/OT following and they do indicate he will need SNF upon return -Social work is involved) currently awaiting pre-CERT Toxic/metabolic encephalopathy with underlying dementia -Dementia symptoms likely worsened due to above infection -Continue supportive care -Continue to monitor -Patient seems like he is back to baseline Thrombocytopenia -Mild -Suspect related to COVID-19 infection -Trending up Hypertension/hyperlipidemia -Continue statin -Continue lisinopril BPH -Continue Flomax GERD -Continue home PPI Neuropathy -Continue home gabapentin Eyelid infection -Continue home doxycycline -Continue home topicals Dementia -Continue home Namenda -Continue home Aricept -Watch heart rate History of alcohol abuse/tobacco abuse -Remote DVT prophylaxis -Start enoxaparin 40 daily CODE STATUS DNR CCA with no intubation Disposition: -Patient is now on 07/14/2023 medically stable for discharge however awaiting pre-CERT for [facility] facility Charges/Coding Visit Charges Inpatient E&M: 22855 Subs Hosp L1
[2023-07-15] MEDS: Atorvastatin Calcium 20 MG Tablet PO (21:20)
[2023-07-15] MEDS: MELATONIN 3 MG TABLET PO (21:20)
[2023-07-15 21:28] VITALS: BP 138/91; PULSE 72; RESP 16; TEMP 36.4; O2SAT 99
[2023-07-15 21:34] VITALS: O2SAT 99
[2023-07-16 02:54] VITALS: O2SAT 99
[2023-07-16 03:28] VITALS: BP 151/93; PULSE 92; RESP 16; TEMP 36.4; O2SAT 98
[2023-07-16] MEDS: Menthol/Lanolin/Calamine/Znox 113 GM Tube 1 APPLIC TOPICAL ×3 (05:01→21:05)
--- NOTE | 2023-07-16 10:30 | CASEMGMT ---
Social Work Pt plans to go to [facility], skilled level of care upon discharge. SW spoke with [facility] and precert is still pending at this time. Physician updated. Plan: [facility], pending precert SORAIDA Torres
[2023-07-16 10:35] VITALS: BP 122/75; PULSE 99; RESP 18; TEMP 36.4; O2SAT 98
[2023-07-16] MEDS: Enoxaparin 40 MG/0.4 ML Syringe SC (10:38)
[2023-07-16] MEDS: Ascorbic Acid 500 MG Tablet 1000 MG PO ×2 (10:40→16:31)
[2023-07-16] MEDS: Memantine Hydrochloride 10 MG Tablet PO ×2 (10:40→21:05)
[2023-07-16] MEDS: Finasteride 5 MG Tablet PO (10:40)
[2023-07-16] MEDS: Folic Acid 1 MG Tablet PO (10:43)
[2023-07-16] MEDS: Potassium Chloride Oral Tablet 20 MEQ PO (10:43)
[2023-07-16] MEDS: Doxycycline 100 MG CAPSULE PO (10:43)
[2023-07-16] MEDS: Gabapentin 300 MG Capsule PO ×2 (10:43→21:05)
[2023-07-16] MEDS: Meloxicam 15 MG Tablet PO (10:44)
[2023-07-16] MEDS: Thiamine Hydrochloride 100 MG Tablet PO (10:44)
[2023-07-16] MEDS: Loratadine 10 MG Tablet PO (10:44)
[2023-07-16] MEDS: Cholecalciferol (Vit D3) 125 MCG CAPSULE (5,000 UNITS) PO (10:44)
[2023-07-16] MEDS: Donepezil HCl 10 MG Tablet PO (10:44)
[2023-07-16] MEDS: Pantoprazole Sodium 20 MG Tablet PO (10:44)
[2023-07-16] MEDS: Zinc Sulfate 50 mg zinc (220 mg) ORAL capsule PO (10:45)
[2023-07-16] MEDS: Fluticasone 0.05% 1 SPRAY NASAL.SRY NASAL (10:45)
[2023-07-16 16:30] VITALS: BP 134/87; PULSE 80; RESP 18; TEMP 36.3; O2SAT 98
[2023-07-16] MEDS: Tamsulosin HCl 0.4 MG Capsule PO (16:31)
--- NOTE | 2023-07-16 16:31 | PN.HOSP_ITS ---
Reason for Visit Reason for Visit: Acute confusion on chronic dementia Subjective Subjective No issues overnight. Patient remains medically stable. Patient anxious to get back to his . Awaiting pre-CERT. Objective Data Objective Data Vital Signs: Vital Signs Temp Pulse Resp BP Pulse Ox O2 Del Method O2 Flow Rate 97.6 F L 99 18 122/75 H 98 Room Air 0 07/16/23 10:35 07/16/23 10:35 07/16/23 10:35 07/16/23 10:35 07/16/23 10:35 07/16/23 11:40 07/14/23 11:58 Oxygen Flow Rate (L/min) [ 0 AMBULATING on Room Air] Oxygen Flow Rate (L/min) [At 0 REST on Room Air] Oxygen Delivery Method Room Air Weight: 60.44 kg Body Mass Index (BMI) 21.4 Intake & Output: Intake and Output for Last 24 Hours 07/14/23 07/15/23 07/16/23 23:59 23:59 23:59 Intake Total 1400 / 1400 900 / 900 200 / 200 Output Total 300 / 300 Balance 1100 / 1100 900 / 900 200 / 200 Lab / Micro Data 07/14/23 07:21 07/15/23 06:56 Micro: Microbiology 07/12/23 18:43 Nasal Secretion SARS-CoV-2 & FLU Antigen (Rapid) - Final SARS-CoV-2 (COVID 19) Physical Exam Const alert, no apparent distress, average body habitus and well nourished Constitutional Narrative: Elderly, white male, sitting up in a chair at the bedside watching television, oriented to self only, appears comfortable nontoxic, remained stable on room air General Appearance: cooperative Orientation / Consciousness: confused and lethargic HEENT normocephalic, head/scalp atraumatic and moist oral mucous membranes HEENT Narrative: Dentition is fair for age, Mallampati is 2, no thrush, moderate hearing loss Resp normal respiratory effort, no retractions, no use of accessory muscles and clear to auscultation bilaterally Auscultation: Negative for rales, rhonchi or wheezes Neuro Sensorium / Orientation: awake, alert and oriented to person Speech: speech normal Motor Exam: strength 5/5 throughout Psych affect normal Psych Narrative: Extremely pleasant, confused, interacts appropriately Assessment & Plan Assessment/Plan (1) COVID-19: (2) Generalized weakness: (3) Toxic metabolic encephalopathy: PLAN: Plan Acute COVID-19 infection -Patient remains stable on room air with oxygen saturations 100% -Chest x-ray does not show infiltrate and patient does not present with left shift -Okay to continue vitamins for immune support/function optimization -Patient medically stable for discharge however awaiting pre-CERT Generalized weakness -Likely related to the above -PT/OT following and they do indicate he will need SNF upon return -Social work is involved) currently awaiting pre-CERT Toxic/metabolic encephalopathy with underlying dementia -Dementia symptoms likely worsened due to above infection -Continue supportive care -Continue to monitor -Patient seems like he is back to baseline Thrombocytopenia -Mild -Suspect related to COVID-19 infection -Trending up Hypertension/hyperlipidemia -Continue statin -Continue lisinopril BPH -Continue Flomax GERD -Continue home PPI Neuropathy -Continue home gabapentin Eyelid infection -Continue home doxycycline -Continue home topicals Dementia -Continue home Namenda -Continue home Aricept -Watch heart rate History of alcohol abuse/tobacco abuse -Remote DVT prophylaxis -Start enoxaparin 40 daily CODE STATUS DNR CCA with no intubation Disposition: -Patient remains medically stable and has been since 07/14/2023 medically stable for discharge however awaiting pre-CERT for intermediate facility Charges/Coding Visit Charges Inpatient E&M: 27295 Subs Hosp L1
[2023-07-16 21:02] VITALS: BP 140/97; PULSE 87; RESP 16; TEMP 36.5; O2SAT 97
[2023-07-16] MEDS: MELATONIN 3 MG TABLET PO (21:05)
[2023-07-16] MEDS: Atorvastatin Calcium 20 MG Tablet PO (21:05)
[2023-07-16 21:21] VITALS: O2SAT 97
[2023-07-17 04:00] VITALS: O2SAT 99
[2023-07-17 04:08] VITALS: BP 153/83; PULSE 83; RESP 16; TEMP 36.4; O2SAT 99
[2023-07-17] MEDS: Menthol/Lanolin/Calamine/Znox 113 GM Tube 1 APPLIC TOPICAL ×3 (04:09→20:58)
[2023-07-17] MEDS: Gabapentin 300 MG Capsule PO ×2 (10:30→20:58)
[2023-07-17] MEDS: Cholecalciferol (Vit D3) 125 MCG CAPSULE (5,000 UNITS) PO (10:30)
[2023-07-17] MEDS: Finasteride 5 MG Tablet PO (10:30)
[2023-07-17] MEDS: Thiamine Hydrochloride 100 MG Tablet PO (10:31)
[2023-07-17] MEDS: Folic Acid 1 MG Tablet PO (10:31)
[2023-07-17] MEDS: Potassium Chloride Oral Tablet 20 MEQ PO (10:31)
[2023-07-17] MEDS: Donepezil HCl 10 MG Tablet PO (10:35)
[2023-07-17] MEDS: Memantine Hydrochloride 10 MG Tablet PO ×2 (10:36→20:58)
[2023-07-17] MEDS: Zinc Sulfate 50 mg zinc (220 mg) ORAL capsule PO (10:36)
[2023-07-17] MEDS: Doxycycline 100 MG CAPSULE PO (10:36)
[2023-07-17] MEDS: Pantoprazole Sodium 20 MG Tablet PO (10:36)
[2023-07-17] MEDS: Meloxicam 15 MG Tablet PO (10:36)
[2023-07-17] MEDS: Loratadine 10 MG Tablet PO (10:36)
[2023-07-17] MEDS: Enoxaparin 40 MG/0.4 ML Syringe SC (10:37)
[2023-07-17] MEDS: Ascorbic Acid 500 MG Tablet 1000 MG PO ×2 (10:37→16:14)
[2023-07-17] MEDS: Fluticasone 0.05% 1 SPRAY NASAL.SRY NASAL (10:38)
[2023-07-17 10:46] VITALS: BP 138/84; PULSE 82; RESP 16; TEMP 36.7; O2SAT 95
--- NOTE | 2023-07-17 15:28 | CASEMGMT ---
Social Work Precert for admission to [facility] was started on 07/14. At this time determination has not been made by the insurance company. left for the Abegail at [facility] to inquire about delay. Phone call to pt's dgt Bessy and updated on discharge delay. Green sheet on chart in the event precert is obtained. [facility] informed to call the nursing unit once precert is obtained. Plan: [facility], pending precert SORAIDA Torres
[2023-07-17 16:00] VITALS: BP 138/93; PULSE 89; RESP 19; TEMP 36.3; O2SAT 99
--- NOTE | 2023-07-17 16:04 | PCM.TXEXTCAR ---
Diet Diet Order/Speech Therapy: 07/12/23 23:57 Diet: Regular - General Food consistency:: Regular Liquid Consistency:: Regular/Thin Is pt able to select menu?: No Routine Orders/Code Status Suppository Type: Dulcolax 10mg O2 Frequency: PRN Keep PO Greater than or Equal to (%): 89 Routine Lab Work: CBC (As needed) and BMP (As needed) Code Status: DNRCC-A (No intubation) Suggestions for Active Care Change Position every (hours): 2 Hours to sit in a chair: 3 Times a day to sit in chair: 2 Therapies Weight Bearing: Full weight bearing Physical Therapy: Eval and Treat Occupational Therapy: Eval and Treat Problem/Diagnosis (1) COVID-19: Status: Acute Code(s): U07.1 - COVID-19 (2) Generalized weakness: Status: Acute Code(s): R53.1 - Weakness (3) Toxic metabolic encephalopathy: Status: Acute Code(s): G92.8 - Other toxic encephalopathy Plan \ Allergies/Procedures Done in Hospital Allergies Benzodiazepines Allergy (Verified 07/12/23 18:36) PT UNSURE OF REACTION losartan Allergy (Verified 07/12/23 18:36) PT UNSURE OF REACTION morphine Allergy (Verified 07/12/23 18:36) PT UNSURE OF REACTION Procedures: EKG and - (Chest x-ray) Type of Care/Length of Stay Estimated LOS: Convalescent Care Less Than 30 days Type of Care Needed: Skilled Rehab Potential: Good Prognosis: Good Additional Orders/Day of Discharge Day of Discharge: 07/17/23 Dietary and Speech Recommendations Dietitian Recommendations/Changes: Will continue Regular Diet and offer ensure plus HP as needed if PO fails at meals. Discharge Plan Admission Admit Date/Time: 07/12/23 21:45 Attending Provider: Miiram Lyon Primary Care Provider: Finn Cheung Consulting Providers: Desmond Cardoso Discharge Orders/Prescriptions Prescriptions: No Action acetaminophen 500 mg capsule 500 mg PO Q6H PRN (Reason: fever or pain) ketotifen fumarate [Alaway] 0.025 % (0.035 %) drops 1 drp ophthalmic (eye) BID Rx Instructions: administer at least 8 hours apart loratadine [Claritin] 10 mg tablet 10 mg PO DAILY doxycycline hyclate 100 mg capsule 100 mg PO DAILY fluticasone propionate [Flonase Allergy Relief] 50 mcg/actuation spray,suspension 1 spray intranasal DAILY Rx Instructions: administer into each nostril gabapentin 300 mg capsule 300 mg PO BID ibuprofen 200 mg capsule 400 mg PO Q6H PRN (Reason: pain) guaifenesin [Mucinex] 600 mg tablet extended release 12hr 600 mg PO BID PRN (Reason: cough) memantine [Namenda] 10 mg tablet 10 mg PO BID omeprazole 20 mg capsule,delayed release(DR/EC) 20 mg PO DAILY atorvastatin 20 MG tablet 10 mg PO QHS donepezil 10 MG tablet 10 mg PO QHS meloxicam 15 MG tablet 15 mg PO DAILY tamsulosin 0.4 mg capsule 0.4 mg PO DINNER Patient Comments: TAKE 1 CAPSULE BY MOUTH ONCE DAILY AT BEDTIME finasteride 5 MG tablet 5 mg PO DAILY clotrimazole-betamethasone 1-0.05 % cream 1 applic TOPICAL Q12H zinc oxide 20 % ointment 1 applic topical DAILY lisinopril 10 mg tablet 10 mg PO DAILY erythromycin 5 mg/gram (0.5 %) ointment 1 applic ophthalmic (eye) QHS Rx Instructions: apply to bilat eyes Referrals / Follow Up: Finn Cheung MD [Primary Care Provider] -
[2023-07-17] MEDS: Tamsulosin HCl 0.4 MG Capsule PO (16:12)
--- NOTE | 2023-07-17 16:26 | PCM.PN.HOSP ---
Reason for Visit Reason for Visit: Acute confusion Subjective Subjective No issues overnight. Patient remains doing well. Remains with intermittent confusion which is his baseline. Asks daily where his is and when he can go see her. She is currently residing at the nursing facility we are trying to get him back to. Objective Data Objective Data Vital Signs: Vital Signs Temp Pulse Resp BP Pulse Ox O2 Del Method O2 Flow Rate 97.3 F L 89 19 H 138/93 H 99 Room Air 0 07/17/23 16:00 07/17/23 16:00 07/17/23 16:00 07/17/23 16:00 07/17/23 16:00 07/17/23 16:00 07/14/23 11:58 Oxygen Flow Rate (L/min) [ 0 AMBULATING on Room Air] Oxygen Flow Rate (L/min) [At 0 REST on Room Air] Oxygen Delivery Method Room Air Weight: 60.44 kg Body Mass Index (BMI) 21.4 Intake & Output: Intake and Output for Last 24 Hours 07/15/23 07/16/23 07/17/23 23:59 23:59 23:59 Intake Total 900 / 900 740 / 740 540 / 540 Output Total 540 / 540 225 / 225 Balance 900 / 900 200 / 200 315 / 315 Lab / Micro Data 07/14/23 07:21 07/15/23 06:56 Micro: Microbiology 07/12/23 18:43 Nasal Secretion SARS-CoV-2 & FLU Antigen (Rapid) - Final SARS-CoV-2 (COVID 19) Physical Exam Const alert, no apparent distress, average body habitus and well nourished Constitutional Narrative: Elderly, white male, sitting up in bed watching television, oriented to self only, appears comfortable nontoxic, remained stable on room air General Appearance: cooperative Psych affect normal Psych Narrative: Extremely pleasant, confused, interacts appropriately Assessment & Plan Assessment/Plan (1) COVID-19: (2) Generalized weakness: (3) Toxic metabolic encephalopathy: PLAN: Plan Acute COVID-19 infection -Patient remains stable on room air with oxygen saturations 100% -Chest x-ray does not show infiltrate and patient does not present with left shift -Okay to continue vitamins for immune support/function optimization -Patient medically stable for discharge however awaiting pre-CERT Generalized weakness -Likely related to the above -PT/OT following and they do indicate he will need SNF upon return -Social work is involved) currently awaiting pre-CERT Toxic/metabolic encephalopathy with underlying dementia -Dementia symptoms likely worsened due to above infection -Continue supportive care -Continue to monitor -Patient seems like he is back to baseline Thrombocytopenia -Mild -Suspect related to COVID-19 infection -Trending up Hypertension/hyperlipidemia -Continue statin -Continue lisinopril BPH -Continue Flomax GERD -Continue home PPI Neuropathy -Continue home gabapentin Eyelid infection -Continue home doxycycline -Continue home topicals Dementia -Continue home Namenda -Continue home Aricept -Watch heart rate History of alcohol abuse/tobacco abuse -Remote DVT prophylaxis -Start enoxaparin 40 daily CODE STATUS DNR CCA with no intubation Disposition: -Patient, since 07/14/2023, has been medically stable for discharge however awaiting pre-CERT for shelter facility Charges/Coding Visit Charges Inpatient E&M: 50725 Subs Hosp L1
[2023-07-17 20:55] VITALS: BP 146/84; PULSE 72; RESP 18; TEMP 36.8; O2SAT 96
[2023-07-17] MEDS: MELATONIN 3 MG TABLET PO (20:58)
[2023-07-17] MEDS: Atorvastatin Calcium 20 MG Tablet PO (20:58)
[2023-07-18 03:48] VITALS: BP 152/94; PULSE 81; RESP 20; TEMP 36.4; O2SAT 98
[2023-07-18] MEDS: Menthol/Lanolin/Calamine/Znox 113 GM Tube 1 APPLIC TOPICAL ×3 (05:30→23:50)
[2023-07-18] MEDS: Ascorbic Acid 500 MG Tablet 1000 MG PO ×2 (07:54→16:06)
[2023-07-18] MEDS: Thiamine Hydrochloride 100 MG Tablet PO (07:54)
[2023-07-18] MEDS: Folic Acid 1 MG Tablet PO (07:54)
[2023-07-18] MEDS: Potassium Chloride Oral Tablet 20 MEQ PO (07:54)
[2023-07-18 07:58] VITALS: BP 156/75; PULSE 68; RESP 18; TEMP 36.7; O2SAT 97
[2023-07-18] MEDS: Fluticasone 0.05% 1 SPRAY NASAL.SRY NASAL (09:56)
[2023-07-18] MEDS: Pantoprazole Sodium 20 MG Tablet PO (09:57)
[2023-07-18] MEDS: Finasteride 5 MG Tablet PO (09:57)
[2023-07-18] MEDS: Gabapentin 300 MG Capsule PO ×2 (09:57→23:50)
[2023-07-18] MEDS: Enoxaparin 40 MG/0.4 ML Syringe SC (09:57)
[2023-07-18] MEDS: Cholecalciferol (Vit D3) 125 MCG CAPSULE (5,000 UNITS) PO (09:57)
[2023-07-18] MEDS: Loratadine 10 MG Tablet PO (09:58)
[2023-07-18] MEDS: Donepezil HCl 10 MG Tablet PO (09:58)
[2023-07-18] MEDS: Zinc Sulfate 50 mg zinc (220 mg) ORAL capsule PO (09:58)
[2023-07-18] MEDS: Memantine Hydrochloride 10 MG Tablet PO ×2 (09:59→23:50)
[2023-07-18] MEDS: Meloxicam 15 MG Tablet PO (09:59)
[2023-07-18] MEDS: Doxycycline 100 MG CAPSULE PO (10:01)
--- NOTE | 2023-07-18 13:34 | CASEMGMT ---
Social Work SW reviewed [facility], no precert yet. SW did complete the 7000 in the [employer] system in the event pt's precert comes through, placed it on the chart. JOSE Covarrubias
--- NOTE | 2023-07-18 14:36 | CASEMGMT ---
Addendum entered by Michelle Dyer 07/18/23 15:08: Social Work SW called daughter Bessy in regard to discharge plan. SW inquired if she and family would be on board w/pt returning to [place] or if they preferred pt go back to [facility] skilled, as pt is moving better with therapy. As per daughter they would still like pt to go skilled if he can. They are concerned about pt's skin. Daughter states pt skin was very bad when he came in, due to his not bathing himself and not getting showered in the assisted living. She states they are paying extra for pt to be bathed, but they are not bathing him. She states she wants pt's skin to heal up somewhat before going back to the assisted living. SW explained will let physician know. SW let physician know family would like pt to go to [facility] rather than back to [place] so his skin can heal further. LORNE also sent another message to [facility] via [employer] letting them know to continue w/insurance for precert for the SNF side for skilled. SW to follow up on Thursday. JOSE Covarrubias Original Note: Social Work SW spoke w/physician, she is inquiring if pt can return to [place] rather than stay here waiting for a precert. SW sent PT/OT, medical updates to [facility], asked them to have [place] review to see if pt can return rather than wait here for precert for SNF. LORNE will continue to follow. JOSE Covarrubias
[2023-07-18 16:00] VITALS: BP 143/98; PULSE 83; RESP 16; TEMP 36.4; O2SAT 97
[2023-07-18] MEDS: Tamsulosin HCl 0.4 MG Capsule PO (16:06)
--- NOTE | 2023-07-18 16:26 | PCM.PN.HOSP ---
Reason for Visit Reason for Visit: Acute mental status change Subjective Subjective No issues overnight. Objective Data Objective Data Vital Signs: Vital Signs Temp Pulse Resp BP Pulse Ox O2 Del Method O2 Flow Rate 97.6 F L 83 16 143/98 H 97 Room Air 0 07/18/23 16:00 07/18/23 16:00 07/18/23 16:00 07/18/23 16:00 07/18/23 16:00 07/18/23 16:00 07/14/23 11:58 Oxygen Flow Rate (L/min) [ 0 AMBULATING on Room Air] Oxygen Flow Rate (L/min) [At 0 REST on Room Air] Oxygen Delivery Method Room Air Weight: 60.44 kg Body Mass Index (BMI) 21.4 Intake & Output: Intake and Output for Last 24 Hours 07/16/23 07/17/23 07/18/23 23:59 23:59 23:59 Intake Total 740 / 740 780 / 780 Output Total 540 / 540 465 / 465 Balance 200 / 200 315 / 315 Lab / Micro Data 07/14/23 07:21 07/15/23 06:56 Micro: Microbiology 07/12/23 18:43 Nasal Secretion SARS-CoV-2 & FLU Antigen (Rapid) - Final SARS-CoV-2 (COVID 19) Physical Exam Const alert, no apparent distress, average body habitus and well nourished Constitutional Narrative: Elderly, white male, sitting up in a chair at the bedside, watching television, oriented to self only, appears comfortable nontoxic, remained stable on room air HEENT normocephalic, head/scalp atraumatic and moist oral mucous membranes HEENT Narrative: Mild hearing loss Resp normal respiratory effort, no retractions, no use of accessory muscles and clear to auscultation bilaterally Auscultation: Negative for rales, rhonchi or wheezes Neuro Sensorium / Orientation: awake, alert and oriented to person Speech: speech normal Psych affect normal Psych Narrative: Extremely pleasant, confused, interacts appropriately Assessment & Plan Assessment/Plan (1) COVID-19: (2) Generalized weakness: (3) Toxic metabolic encephalopathy: PLAN: Plan Acute COVID-19 infection -Patient remains stable on room air with oxygen saturations 100% -Chest x-ray does not show infiltrate and patient does not present with left shift -Okay to continue vitamins for immune support/function optimization -Patient medically stable for discharge however awaiting pre-CERT Generalized weakness -Likely related to the above -PT/OT following and they do indicate he will need SNF upon return -Social work is involved) currently awaiting pre-CERT Toxic/metabolic encephalopathy with underlying dementia -Dementia symptoms likely worsened due to above infection -Continue supportive care -Continue to monitor -Patient seems like he is back to baseline Thrombocytopenia -Mild -Suspect related to COVID-19 infection -Trending up Hypertension/hyperlipidemia -Continue statin -Continue lisinopril BPH -Continue Flomax GERD -Continue home PPI Neuropathy -Continue home gabapentin Eyelid infection -Continue home doxycycline -Continue home topicals Dementia -Continue home Namenda -Continue home Aricept -Watch heart rate History of alcohol abuse/tobacco abuse -Remote DVT prophylaxis -Start enoxaparin 40 daily CODE STATUS DNR CCA with no intubation Disposition: -Patient, since 07/14/2023, has been medically stable for discharge however awaiting pre-CERT for nursing home facility Charges/Coding Visit Charges Inpatient E&M: 82625 Subs Hosp L1
[2023-07-18 23:49] VITALS: BP 147/84; PULSE 76; RESP 18; TEMP 36.4; O2SAT 96
[2023-07-18] MEDS: MELATONIN 3 MG TABLET PO (23:50)
[2023-07-18] MEDS: Atorvastatin Calcium 20 MG Tablet PO (23:50)
[2023-07-19] VITALS (7 sets, daily range): BP systolic 126–152; BP diastolic 69–87; PULSE 73–88; RESP 18; TEMP 36.4–36.6; O2SAT 95–99
[2023-07-19 06:26] LABS: Absolute Lymphocyte Count 5.48 X10^3/uL (0.83-4.51); Basophil# 0.03 X10^3/uL; Basophil% 0.3 % (0-1); Eosinophil# 0.18 X10^3/uL; Eosinophils% 1.6 % (0-5); Hematocrit 44.7 % (40-54); Hemoglobin 14.6 g/dL (13.0-16.5); Lymphocyte # 5.48 X10^3/ul (0.83-4.51); Lymphocyte % 48.8 % (19-41); Mean Corp Hgb Conc 32.7 g/dL (32-36); Mean Corpuscular Hgb 30.6 pg (27.0-32.0); Mean Corpuscular Volume 93.7 fL (80-94); Mean Platelet Vol. 11.1 fl (6.2-12.0); Monocyte# 0.54 X10^3/uL; Monocyte% 4.8 % (0-10); NRBC Flagged by Analyzer 0 % (0-5); Neutrophil # 4.95 X10^3/uL (2.7-7.7); Neutrophil % 44.1 % (47-70); POSITIVE DIFFERENTIAL YES; POSITIVE MORPHOLOGY YES; Platelet Count 153 K/mm3 (150-450); RBC Distribution Width CV 13.3 % (11.6-14.6); RBC Distribution Width SD 45.5 fl (35.1-43.9); Red Blood Count 4.77 M/mm3 (4.6-6.2); White Blood Count 11.2 K/mm3 (4.4-11.0)
[2023-07-19 06:34] LABS: Differential Indicated SCAN CRITERIA MET
[2023-07-19 06:49] LABS: Anion Gap 4 (5-15); BUN 20 mg/dL (7-18); BUN/Creat Ratio 22.9 RATIO (10-20); Calcium,Total 8.7 mg/dL (8.5-10.1); Chloride 108 mmol/L (98-107); Creatinine, Serum 0.87 mg/dL (0.70-1.30); EST Glomerular Filtration Rate 88 mL/min (>60); Est Glom Filt Rate - Afr Amer 106 mL/min (>60); Glucose 85 mg/dL (74-106); Potassium 3.9 mmol/L (3.5-5.1); Sodium Level 138 mmol/L (136-145)
--- NOTE | 2023-07-19 06:54 | EKG12_ITS ---
Test Reason : CP Blood Pressure : / mmHG Vent. Rate : 096 BPM Atrial Rate : 096 BPM P-R Int : 184 ms QRS Dur : 082 ms QT Int : 386 ms P-R-T Axes : 035 013 047 degrees QTc Int : 487 ms Sinus rhythm with Premature supraventricular complexes Nonspecific T wave abnormality Prolonged QT Abnormal ECG When compared with ECG of 12-JUL-2023 18:38, Premature supraventricular complexes are now Present Confirmed by SHEYLA HUA, NABILA ([id number]), features editor MATT TILLEY ([id number]) on 07/24/2023 5:51:56 AM Referred By: Confirmed By:NABILA CARRION MD
[2023-07-19] MEDS: Menthol/Lanolin/Calamine/Znox 113 GM Tube 1 APPLIC TOPICAL ×3 (07:05→21:46)
[2023-07-19 08:46] LABS: Differential Comment SCANNED; Reactive Lymphocyte 1+
--- NOTE | 2023-07-19 08:54 | PCM.PN.HOSP ---
Reason for Visit Reason for Visit: Acute confusion Subjective Subjective Patient had some chest tightness earlier. Relates that this breathing. Will get respiratory to give him a breathing treatment to see if this helps. No other issues and states overall he is feeling well. Would like to go see his soon as possible. Still awaiting pre-CERT. Asked me for a couple coffee and some cookies which we obtained for him. Objective Data Objective Data Vital Signs: Vital Signs Temp Pulse Resp BP Pulse Ox O2 Del Method O2 Flow Rate 97.6 F L 73 18 152/87 H 95 Room Air 0 07/19/23 06:43 07/19/23 06:43 07/19/23 06:43 07/19/23 06:43 07/19/23 06:43 07/19/23 06:46 07/14/23 11:58 Oxygen Flow Rate (L/min) [ 0 AMBULATING on Room Air] Oxygen Flow Rate (L/min) [At 0 REST on Room Air] Oxygen Delivery Method Room Air Weight: 60.44 kg Body Mass Index (BMI) 21.4 Intake & Output: Intake and Output for Last 24 Hours 07/17/23 07/18/23 07/19/23 23:59 23:59 23:59 Intake Total 780 / 780 Output Total 465 / 465 Balance 315 / 315 Lab / Micro Data 07/19/23 06:05 07/19/23 06:05 Labs: Laboratory Results - last 24 hr 07/19/23 06:05: WBC 11.2 H, RBC 4.77, Hgb 14.6, Hct 44.7, MCV 93.7, MCH 30.6, MCHC 32.7, RDW Std Deviation 45.5 H, RDW Coeff of Shannon 13.3, Plt Count 153, MPV 11.1, Immature Gran % (Auto) 0.400, Neut % (Auto) 44.1 L, Lymph % (Auto) 48.8 H, [place] % (Auto) 4.8, Eos % (Auto) 1.6, Baso % (Auto) 0.3, Absolute Neuts (auto) 5.0, Absolute Lymphs (auto) 5.48 H, Nucleated RBC % 0, Differential Comment SCANNED, Reactive Lymphocytes 1+, Sodium 138, Potassium 3.9, Chloride 108 H, Carbon Dioxide 26.0, Anion Gap 4 L, BUN 20 H, Creatinine 0.87, Estim Creat Clear Calc 52.10, Est GFR (MDRD) Af Amer 106, Est GFR (MDRD) Non-Af 88, BUN/Creatinine Ratio 22.9 H, Glucose 85, Calcium 8.7 Micro: Microbiology 07/12/23 18:43 Nasal Secretion SARS-CoV-2 & FLU Antigen (Rapid) - Final SARS-CoV-2 (COVID 19) Physical Exam Const alert, no apparent distress, average body habitus and well nourished Constitutional Narrative: Elderly, white male, lying in bed watching television, oriented to self only, appears comfortable nontoxic, remains stable on room air HEENT normocephalic, head/scalp atraumatic, moist oral mucous membranes and oropharynx normal HEENT Narrative: Mild hearing loss, Mallampati 2, no thrush Resp normal respiratory effort, no retractions, no use of accessory muscles and clear to auscultation bilaterally Resp Narrative: Diminished breath sounds throughout but clear Auscultation: Negative for rales, rhonchi or wheezes Cardio regular rate, regular rhythm, S1 normal heart sound, S2 normal heart sound, no murmurs, no rub, no gallops and no clicks GI normal to inspection, nondistended, normoactive bowel sounds, soft to palpation and non-tender Extremity no clubbing, cyanosis or edema Extremity Narrative: Pedal pulses are 2+ Neuro moves all extremities and no focal motor deficits Sensorium / Orientation: awake, alert and oriented to person Speech: speech normal Psych affect normal Psych Narrative: Extremely pleasant, confused, interacts appropriately Assessment & Plan Assessment/Plan (1) COVID-19: (2) Generalized weakness: (3) Toxic metabolic encephalopathy: PLAN: Plan Acute COVID-19 infection -Patient remains stable on room air with oxygen saturations 100% -Chest x-ray does not show infiltrate and patient does not present with left shift -Okay to continue vitamins for immune support/function optimization -Repeat lab done on 07/19/2023 and everything remained stable -Patient medically stable for discharge however awaiting pre-CERT Generalized weakness -Likely related to the above -PT/OT following and they do indicate he will need SNF upon return -Social work is involved-->currently awaiting pre-CERT Toxic/metabolic encephalopathy with underlying dementia -Dementia symptoms likely worsened due to above infection -Continue supportive care -Continue to monitor -Patient seems like he is back to baseline Thrombocytopenia -Mild -Suspect related to COVID-19 infection -Trending up Hypertension/hyperlipidemia -Continue statin -Continue lisinopril BPH -Continue Flomax GERD -Continue home PPI Neuropathy -Continue home gabapentin Eyelid infection -Continue home doxycycline -Continue home topicals Dementia -Continue home Namenda -Continue home Aricept -Watch heart rate History of alcohol abuse/tobacco abuse -Remote DVT prophylaxis -Start enoxaparin 40 daily CODE STATUS DNR CCA with no intubation Disposition: -Patient, since 07/14/2023, has been medically stable for discharge however awaiting pre-CERT for nursing home facility Charges/Coding Visit Charges Inpatient E&M: 98035 Subs Hosp L2
[2023-07-19] MEDS: Ascorbic Acid 500 MG Tablet 1000 MG PO ×2 (09:29→17:38)
[2023-07-19] MEDS: Potassium Chloride Oral Tablet 20 MEQ PO (09:30)
[2023-07-19] MEDS: Thiamine Hydrochloride 100 MG Tablet PO (09:30)
[2023-07-19] MEDS: Folic Acid 1 MG Tablet PO (09:30)
[2023-07-19] MEDS: Donepezil HCl 10 MG Tablet PO (09:43)
[2023-07-19] MEDS: Loratadine 10 MG Tablet PO (09:43)
[2023-07-19] MEDS: Meloxicam 15 MG Tablet PO (09:44)
[2023-07-19] MEDS: Doxycycline 100 MG CAPSULE PO (09:44)
[2023-07-19] MEDS: Fluticasone 0.05% 1 SPRAY NASAL.SRY NASAL (09:44)
[2023-07-19] MEDS: Enoxaparin 40 MG/0.4 ML Syringe SC (09:44)
[2023-07-19] MEDS: Zinc Sulfate 50 mg zinc (220 mg) ORAL capsule PO (09:45)
[2023-07-19] MEDS: Cholecalciferol (Vit D3) 125 MCG CAPSULE (5,000 UNITS) PO (09:45)
[2023-07-19] MEDS: Finasteride 5 MG Tablet PO (09:45)
[2023-07-19] MEDS: Pantoprazole Sodium 20 MG Tablet PO (09:45)
[2023-07-19] MEDS: Memantine Hydrochloride 10 MG Tablet PO ×2 (09:46→21:46)
[2023-07-19] MEDS: Ipratropium/Albuterol Sulfate 3 ML AMPUL.NEB INHALATION (09:56)
[2023-07-19] MEDS: Gabapentin 300 MG Capsule PO ×2 (11:58→21:46)
[2023-07-19] MEDS: Tamsulosin HCl 0.4 MG Capsule PO (17:38)
[2023-07-19] MEDS: Atorvastatin Calcium 20 MG Tablet PO (21:46)
[2023-07-19] MEDS: MELATONIN 3 MG TABLET PO (21:46)
[2023-07-19] MEDS: guaiFENesin 600 MG Tablet PO (21:46)
[2023-07-20 03:40] VITALS: BP 155/77; PULSE 93; RESP 18; TEMP 36.4; O2SAT 96
[2023-07-20] MEDS: Menthol/Lanolin/Calamine/Znox 113 GM Tube 1 APPLIC TOPICAL ×2 (03:55→14:22)
--- NOTE | 2023-07-20 07:58 | PCM.PN.HOSP ---
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) Other toxic encephalopathy (07/12/23) Weakness (07/12/23) COVID-19 (07/12/23) Subjective Subjective Patient is an 87-year-old gentleman resident of an assisted living facility admitted with altered mental status generalized weakness and cough he tested positive for COVID admitted to regular nursing floor for further management Objective Data Objective Data Vital Signs: Vital Signs Temp Pulse Resp BP Pulse Ox O2 Del Method O2 Flow Rate 97.5 F L 93 18 155/77 H 96 Room Air 0 07/20/23 03:40 07/20/23 03:40 07/20/23 03:40 07/20/23 03:40 07/20/23 03:40 07/20/23 03:40 07/19/23 09:41 Oxygen Flow Rate (L/min) [ 0 AMBULATING on Room Air] Oxygen Flow Rate (L/min) [At 0 REST on Room Air] Oxygen Delivery Method Room Air Weight: 60.44 kg Body Mass Index (BMI) 21.4 Intake & Output: Intake and Output for Last 24 Hours 07/18/23 07/19/23 07/20/23 23:59 23:59 23:59 Intake Total 540 / 540 Output Total 300 / 300 Balance 240 / 240 Lab / Micro Data 07/19/23 06:05 07/19/23 06:05 Labs: Laboratory Results - last 24 hr 07/19/23 06:05: Differential Comment SCANNED, Reactive Lymphocytes 1+ Micro: Microbiology 07/12/23 18:43 Nasal Secretion SARS-CoV-2 & FLU Antigen (Rapid) - Final SARS-CoV-2 (COVID 19) Physical Exam Narrative GENERAL: cooperative HEENT: Atraumatic; normocephalic EYES; Anicteric, Normal Conjunctiva NECK; supple, normal thyroid, RESPIRATORY: Diminished to auscultation CARDIOVASCULAR: Regular S1 S2, GI: soft, normoactive bowel sounds, : No Renal angle tenderness; EXTREMITIES: No edema, no clubbing, MUSCULOSKELETAL: no muscle wasting NEURO: Awake; no lateralizing signs. SKIN: No Rash PSYCH; Flat affect Assessment & Plan Assessment/Plan (1) COVID-19: (2) Generalized weakness: (3) Toxic metabolic encephalopathy: PLAN: Plan Patient is an 87-year-old gentleman resident of an assisted living facility admitted with altered mental status generalized weakness and cough he tested positive for COVID admitted to regular nursing floor for further management 1. Acute COVID-19 infection ? Complicated by metabolic encephalopathy. Patient did not require oxygen. Patient was managed symptomatically 2. Acute metabolic encephalopathy ? Secondary to above 3. Physical deconditioning - Requested for PT OT eval and high school social studies tutor to assist with discharge planning 4. BPH with lower urinary obstruction ? Patient treated with tamsulosin 5. Dyslipidemia -Patient is on statin therapy, continued at home dose 6. Hypertension - Blood pressure controlled, home medications continued with dose adjustment as needed 7. Dementia ? Supportive care patient is on Namenda and Aricept did continue 8. GERD ? Patient is on PPI 9. Eyelid infection ? Managed with home doxycycline as well as home topicals 10.. DVT prophylaxis - On enoxaparin CODE STATUS DNR CCA with no intubation Time spent in the patient's overall evaluation,decision-making process, review of diagnostic data, adjustment of management, discussion with other providers, nursing nursing and ancillary staff involved in patient's care documentation, 35 Minutes Charges/Coding Visit Charges Inpatient E&M: 35466 Subs Hosp L2
[2023-07-20 08:35] VITALS: BP 130/71; PULSE 91; RESP 18; TEMP 36.7; O2SAT 98
[2023-07-20] MEDS: Potassium Chloride Oral Tablet 20 MEQ PO (08:49)
[2023-07-20] MEDS: Enoxaparin 40 MG/0.4 ML Syringe SC (08:50)
[2023-07-20] MEDS: guaiFENesin 600 MG Tablet PO (08:50)
[2023-07-20] MEDS: Donepezil HCl 10 MG Tablet PO (08:50)
[2023-07-20] MEDS: Folic Acid 1 MG Tablet PO (08:50)
[2023-07-20] MEDS: Zinc Sulfate 50 mg zinc (220 mg) ORAL capsule PO (08:50)
[2023-07-20] MEDS: Loratadine 10 MG Tablet PO (08:50)
[2023-07-20] MEDS: Thiamine Hydrochloride 100 MG Tablet PO (08:50)
[2023-07-20] MEDS: Meloxicam 15 MG Tablet PO (08:50)
[2023-07-20] MEDS: Finasteride 5 MG Tablet PO (08:50)
[2023-07-20] MEDS: Gabapentin 300 MG Capsule PO (08:50)
[2023-07-20] MEDS: Pantoprazole Sodium 20 MG Tablet PO (08:50)
[2023-07-20] MEDS: Doxycycline 100 MG CAPSULE PO (08:50)
[2023-07-20] MEDS: Memantine Hydrochloride 10 MG Tablet PO (08:50)
[2023-07-20] MEDS: Cholecalciferol (Vit D3) 125 MCG CAPSULE (5,000 UNITS) PO (08:51)
[2023-07-20] MEDS: Fluticasone 0.05% 1 SPRAY NASAL.SRY NASAL (08:51)
[2023-07-20] MEDS: Ascorbic Acid 500 MG Tablet 1000 MG PO (08:52)
--- NOTE | 2023-07-20 12:14 | PCM.TXEXTCAR ---
Diet Diet Order/Speech Therapy: 07/12/23 23:57 Diet: Regular - General Food consistency:: Regular Liquid Consistency:: Regular/Thin Is pt able to select menu?: No Routine Orders/Code Status Suppository Type: Dulcolax 10mg O2 Frequency: PRN Keep PO Greater than or Equal to (%): 89 Routine Lab Work: CBC (As needed) and BMP (As needed) Code Status: DNRCC-A (No intubation) Suggestions for Active Care Change Position every (hours): 2 Hours to sit in a chair: 3 Times a day to sit in chair: 2 Therapies Physical Therapy: Eval and Treat Occupational Therapy: Eval and Treat Problem/Diagnosis (1) COVID-19: Status: Acute Code(s): U07.1 - COVID-19 (2) Generalized weakness: Status: Acute Code(s): R53.1 - Weakness (3) Toxic metabolic encephalopathy: Status: Acute Code(s): G92.8 - Other toxic encephalopathy Plan Patient is an 87-year-old gentleman resident of an assisted living facility admitted with altered mental status generalized weakness and cough he tested positive for COVID admitted to regular nursing floor for further management 1. Acute COVID-19 infection ? Complicated by metabolic encephalopathy. Patient did not require oxygen. Patient was managed symptomatically 2. Acute metabolic encephalopathy ? Secondary to above 3. Physical deconditioning - Requested for PT OT eval and long term care social worker to assist with discharge planning 4. BPH with lower urinary obstruction ? Patient treated with tamsulosin 5. Dyslipidemia -Patient is on statin therapy, continued at home dose 6. Hypertension - Blood pressure controlled, home medications continued with dose adjustment as needed 7. Dementia ? Supportive care patient is on Namenda and Aricept did continue 8. GERD ? Patient is on PPI 9. Eyelid infection ? Managed with home doxycycline as well as home topicals 10.. DVT prophylaxis - On enoxaparin CODE STATUS DNR CCA with no intubation Time spent in the patient's overall evaluation,decision-making process, review of diagnostic data, adjustment of management, discussion with other providers, nursing nursing and ancillary staff involved in patient's care documentation, 35 Minutes Allergies/Procedures Done in Hospital Allergies Benzodiazepines Allergy (Verified 07/12/23 18:36) PT UNSURE OF REACTION losartan Allergy (Verified 07/12/23 18:36) PT UNSURE OF REACTION morphine Allergy (Verified 07/12/23 18:36) PT UNSURE OF REACTION Procedures: EKG and - (Chest x-ray) Type of Care/Length of Stay Estimated LOS: Convalescent Care Less Than 30 days Type of Care Needed: Skilled Rehab Potential: Good Prognosis: Good Additional Orders/Day of Discharge Day of Discharge: 07/20/23 Dietary and Speech Recommendations Dietitian Recommendations/Changes: Will continue Regular Diet and offer ensure plus HP as needed if PO fails at meals. Discharge Plan Admission Admit Date/Time: 07/12/23 21:45 Primary Reason for Your Visit: Acute confusion Attending Provider: Desmond Berrios Primary Care Provider: Finn Cheung Consulting Providers: Desmond Berrios; Miriam Lyon Discharge Orders/Prescriptions Prescriptions: Continued acetaminophen 500 mg capsule 500 mg PO Q6H PRN (Reason: fever or pain) ketotifen fumarate [Alaway] 0.025 % (0.035 %) drops 1 drp ophthalmic (eye) BID Rx Instructions: administer at least 8 hours apart loratadine [Claritin] 10 mg tablet 10 mg PO DAILY doxycycline hyclate 100 mg capsule 100 mg PO DAILY fluticasone propionate [Flonase Allergy Relief] 50 mcg/actuation spray,suspension 1 spray intranasal DAILY Rx Instructions: administer into each nostril gabapentin 300 mg capsule 300 mg PO BID ibuprofen 200 mg capsule 400 mg PO Q6H PRN (Reason: pain) guaifenesin [Mucinex] 600 mg tablet extended release 12hr 600 mg PO BID PRN (Reason: cough) memantine [Namenda] 10 mg tablet 10 mg PO BID omeprazole 20 mg capsule,delayed release(DR/EC) 20 mg PO DAILY atorvastatin 20 MG tablet 10 mg PO QHS donepezil 10 MG tablet 10 mg PO QHS meloxicam 15 MG tablet 15 mg PO DAILY tamsulosin 0.4 mg capsule 0.4 mg PO DINNER Patient Comments: TAKE 1 CAPSULE BY MOUTH ONCE DAILY AT BEDTIME finasteride 5 MG tablet 5 mg PO DAILY clotrimazole-betamethasone 1-0.05 % cream 1 applic TOPICAL Q12H zinc oxide 20 % ointment 1 applic topical DAILY lisinopril 10 mg tablet 10 mg PO DAILY erythromycin 5 mg/gram (0.5 %) ointment 1 applic ophthalmic (eye) QHS Rx Instructions: apply to bilat eyes Referrals / Follow Up: Finn Cheung MD [Primary Care Provider] - Within 1 Month Disposition Disposition (needs filled in before D/C Order can be placed): Longterm Facility
--- NOTE | 2023-07-20 13:08 | DS.PCM_ITS ---
Providers Date of Admission: 07/12/23 Date of Discharge: 07/20/23 Primary Care Physician: Dr. Finn Cheung MD Reason For Visit: COVID-19+ WITH ACUTE DELERIUM IN THE SETTING OF Diagnosis Discharge Diagnosis (1) COVID-19: Status: Acute Code(s): U07.1 - COVID-19 (2) Generalized weakness: Status: Acute Code(s): R53.1 - Weakness (3) Toxic metabolic encephalopathy: Status: Acute Code(s): G92.8 - Other toxic encephalopathy Plan Patient is an 87-year-old gentleman resident of an assisted living facility admitted with altered mental status generalized weakness and cough he tested positive for COVID admitted to regular nursing floor for further management 1. Acute COVID-19 infection ? Complicated by metabolic encephalopathy. Patient did not require oxygen. Patient was managed symptomatically 2. Acute metabolic encephalopathy ? Secondary to above 3. Physical deconditioning - Requested for PT OT eval and community mental health social worker to assist with discharge planning 4. BPH with lower urinary obstruction ? Patient treated with tamsulosin 5. Dyslipidemia -Patient is on statin therapy, continued at home dose 6. Hypertension - Blood pressure controlled, home medications continued with dose adjustment as needed 7. Dementia ? Supportive care patient is on Namenda and Aricept did continue 8. GERD ? Patient is on PPI 9. Eyelid infection ? Managed with home doxycycline as well as home topicals 10.. DVT prophylaxis - On enoxaparin CODE STATUS DNR CCA with no intubation Time spent in the patient's overall evaluation,decision-making process, review of diagnostic data, adjustment of management, discussion with other providers, nursing nursing and ancillary staff involved in patient's care documentation, 35 Minutes Medications at Discharge Home Medications atorvastatin 20 mg tablet 10 mg PO QHS cholesterol 01/18/16 donepezil 10 mg tablet 10 mg PO QHS memory 10/30/19 finasteride 5 mg tablet 5 mg PO DAILY prostate 10/30/19 meloxicam 15 mg tablet 15 mg PO DAILY pain 10/30/19 tamsulosin 0.4 mg capsule 0.4 mg PO DINNER prostate 10/30/19 acetaminophen 500 mg capsule 500 mg PO Q6H PRN fever or pain 11/07/22 doxycycline hyclate 100 mg capsule 100 mg PO DAILY dysfunction of eyelid 11/07/22 fluticasone propionate 50 mcg/actuation nasal spray,suspension (Flonase Allergy Relief) 1 spray intranasal DAILY allergies 11/07/22 gabapentin 300 mg capsule 300 mg PO BID nerve pain 11/07/22 guaifenesin 600 mg tablet, extended release 12 hr (Mucinex) 600 mg PO BID PRN cough 11/07/22 ibuprofen 200 mg capsule 400 mg PO Q6H PRN pain 11/07/22 ketotifen fumarate 0.025 % (0.035 %) eye drops (Alaway) 1 drp ophthalmic (eye) BID eyelid 11/07/22 loratadine 10 mg tablet (Claritin) 10 mg PO DAILY allergies 11/07/22 memantine 10 mg tablet (Namenda) 10 mg PO BID pain 11/07/22 omeprazole 20 mg capsule,delayed release 20 mg PO DAILY indigestion 11/07/22 clotrimazole-betamethasone 1 %-0.05 % topical cream 1 applic topical Q12H irritation to groin 07/12/23 erythromycin 5 mg/gram (0.5 %) eye ointment 1 applic ophthalmic (eye) [facility] eye health 07/12/23 lisinopril 10 mg tablet 10 mg PO DAILY bp 07/12/23 zinc oxide 20 % topical ointment 1 applic topical DAILY irritation 07/12/23 Hospital Course Summary of Care Provided Minutes Spent on Discharge: 35 Physical Exam Narrative GENERAL: cooperative HEENT: Atraumatic; normocephalic EYES; Anicteric, Normal Conjunctiva NECK; supple, normal thyroid, RESPIRATORY: Diminished to auscultation CARDIOVASCULAR: Regular S1 S2, GI: soft, normoactive bowel sounds, : No Renal angle tenderness; EXTREMITIES: No edema, no clubbing, MUSCULOSKELETAL: no muscle wasting NEURO: Awake; no lateralizing signs. SKIN: No Rash PSYCH; Flat affect Weight / BMI Weight Weight: 60.44 kg Body Mass Index (BMI) 21.4 ABG / Lab / Microbiology Data 07/19/23 06:05 07/19/23 06:05 Microbiology: Microbiology 07/12/23 18:43 Nasal Secretion SARS-CoV-2 & FLU Antigen (Rapid) - Final SARS-CoV-2 (COVID 19) D/C Instructions Discharge Diet: No restrictions Discharge Activity: Return to Normal Activity Call your doctor if you observe: Fever of 101 or Higher, Shortness of breath, Fainting spells and Chest pain Meaningful Use Info Meaningful Use Diagnoses (Choose all that apply): None applicable Discharge Plan Admission Admit Date/Time: 07/12/23 21:45 Primary Reason for Your Visit: Acute confusion Attending Provider: Desmond Berrios Primary Care Provider: Finn Cheung Consulting Providers: Desmond Berrios; Miriam Lyon Discharge Orders/Prescriptions Prescriptions: Continued acetaminophen 500 mg capsule 500 mg PO Q6H PRN (Reason: fever or pain) ketotifen fumarate [Alaway] 0.025 % (0.035 %) drops 1 drp ophthalmic (eye) BID Rx Instructions: administer at least 8 hours apart loratadine [Claritin] 10 mg tablet 10 mg PO DAILY doxycycline hyclate 100 mg capsule 100 mg PO DAILY fluticasone propionate [Flonase Allergy Relief] 50 mcg/actuation spray,suspension 1 spray intranasal DAILY Rx Instructions: administer into each nostril gabapentin 300 mg capsule 300 mg PO BID ibuprofen 200 mg capsule 400 mg PO Q6H PRN (Reason: pain) guaifenesin [Mucinex] 600 mg tablet extended release 12hr 600 mg PO BID PRN (Reason: cough) memantine [Namenda] 10 mg tablet 10 mg PO BID omeprazole 20 mg capsule,delayed release(DR/EC) 20 mg PO DAILY atorvastatin 20 MG tablet 10 mg PO QHS donepezil 10 MG tablet 10 mg PO QHS meloxicam 15 MG tablet 15 mg PO DAILY tamsulosin 0.4 mg capsule 0.4 mg PO DINNER Patient Comments: TAKE 1 CAPSULE BY MOUTH ONCE DAILY AT BEDTIME finasteride 5 MG tablet 5 mg PO DAILY clotrimazole-betamethasone 1-0.05 % cream 1 applic TOPICAL Q12H zinc oxide 20 % ointment 1 applic topical DAILY lisinopril 10 mg tablet 10 mg PO DAILY erythromycin 5 mg/gram (0.5 %) ointment 1 applic ophthalmic (eye) QHS Rx Instructions: apply to bilat eyes Referrals / Follow Up: Finn Cheung MD [Primary Care Provider] - Within 1 Month Disposition Disposition (needs filled in before D/C Order can be placed): Assisted Facility Charges/Coding Visit Charges Inpatient E&M: 52141 Disch Hosp >30min
--- NOTE | 2023-07-20 13:36 | PHA.DC.MR.R ---
Pharmacy [facility] Reconciliation Pharmacy Service has performed discharge medication reconciliation for this patient. The patient's discharge medication list was reviewed for discrepancies and discrepancies were resolved. Medications at Discharge Home Medications atorvastatin 20 mg tablet 10 mg PO QHS cholesterol 01/18/16 donepezil 10 mg tablet 10 mg PO QHS memory 10/30/19 finasteride 5 mg tablet 5 mg PO DAILY prostate 10/30/19 meloxicam 15 mg tablet 15 mg PO DAILY pain 10/30/19 tamsulosin 0.4 mg capsule 0.4 mg PO DINNER prostate 10/30/19 acetaminophen 500 mg capsule 500 mg PO Q6H PRN fever or pain 11/07/22 doxycycline hyclate 100 mg capsule 100 mg PO DAILY dysfunction of eyelid 11/07/22 fluticasone propionate 50 mcg/actuation nasal spray,suspension (Flonase Allergy Relief) 1 spray intranasal DAILY allergies 11/07/22 gabapentin 300 mg capsule 300 mg PO BID nerve pain 11/07/22 guaifenesin 600 mg tablet, extended release 12 hr (Mucinex) 600 mg PO BID PRN cough 11/07/22 ibuprofen 200 mg capsule 400 mg PO Q6H PRN pain 11/07/22 ketotifen fumarate 0.025 % (0.035 %) eye drops (Alaway) 1 drp ophthalmic (eye) BID eyelid 11/07/22 loratadine 10 mg tablet (Claritin) 10 mg PO DAILY allergies 11/07/22 memantine 10 mg tablet (Namenda) 10 mg PO BID pain 11/07/22 omeprazole 20 mg capsule,delayed release 20 mg PO DAILY indigestion 11/07/22 clotrimazole-betamethasone 1 %-0.05 % topical cream 1 applic topical Q12H irritation to groin 07/12/23 erythromycin 5 mg/gram (0.5 %) eye ointment 1 applic ophthalmic (eye) QHS eye health 07/12/23 lisinopril 10 mg tablet 10 mg PO DAILY bp 07/12/23 zinc oxide 20 % topical ointment 1 applic topical DAILY irritation 07/12/23
[2023-07-20 14:21] VITALS: BP 140/76; PULSE 95; RESP 18; TEMP 36.8; O2SAT 99
--- NOTE | 2023-07-20 14:29 | CASEMGMT ---
Social Work Per Chang at [facility], insurance authorization is back. Updated Dr. Berrios, nursing, and patient's daughter Bessy. Patient is for discharge today. [id number] Convalescent form completed over the weekend, in case the insurance authorization came back. Faxed discharge orders and medication list to [phone]. Nursing and daughter Bessy updated to time. PLAN: Skilled level of care on a convalescent exemption form to [facility]. No other services requested or indicated. -MAXWELL Vasquez
== END 2023-07-20 15:13 | disposition skilled nursing facility (03) | DRG 177 ==
LOC: ED 19:17 → MS3 21:35
PROVIDERS: Internal Medicine; Physician Assistant; Admitting Provider Internal Medicine; Emergency Provider Emergency Medicine; PCP Family Medicine; Visit Provider Internal Medicine
DX: U07.1 COVID-19 (principal); G92.8 Other toxic encephalopathy; N13.8 Other obstructive and reflux uropathy; D69.6 Thrombocytopenia, unspecified; F02.C0 Dementia in other diseases classified elsewhere, severe, without behavioral disturbance, psychotic disturbance, mood disturbance, and anxiety; G30.1 Alzheimer's disease with late onset; I48.91 Unspecified atrial fibrillation; E78.5 Hyperlipidemia, unspecified; G62.9 Polyneuropathy, unspecified; F10.20 Alcohol dependence, uncomplicated; I10 Essential (primary) hypertension; F41.8 Other specified anxiety disorders; K21.9 Gastro-esophageal reflux disease without esophagitis; H01.9 Unspecified inflammation of eyelid; R15.9 Full incontinence of feces; Z87.891 Personal history of nicotine dependence; Z66 Do not resuscitate; N40.1 Benign prostatic hyperplasia with lower urinary tract symptoms; Z79.899 Other long term (current) drug therapy; R32 Unspecified urinary incontinence
CPT/HCPCS: 36415; 71045; 80048; 81001; 82077; 82607; 82746; 83605; 83735; 84100; 84443; 85025; 87428; 93005; 94640; 94668; 97110; 97116; 97162; 97166; 97530; 97535; 99285; J7030

== ENCOUNTER 2023-07-21 06:52 | Emergency (ER) | payer MEDICARE, MEDICAID, SELFPAY ==
[2023-07-21 06:52] VITALS: BP 114/72; PULSE 93; RESP 16; TEMP 36.6; O2SAT 100; BMI 23.0
--- NOTE | 2023-07-21 07:02 | RAD_ITS ---
INDICATION: chest pain EXAMINATION/TECHNIQUE: X-RAY - XR Chest 1 View COMPARISON: July 12, 2023. FINDINGS: LINES/DEVICES: None. LUNGS: No consolidation, edema or effusion. No pneumothorax. MEDIASTINUM AND CARDIOVASCULAR STRUCTURES: Cardiac silhouette not enlarged. Aortic atherosclerosis. BONES AND SOFT TISSUES: Unremarkable. RAD/Chest 1 View (Portable) IMPRESSION: No radiographic evidence of acute cardiopulmonary disease. Aortic atherosclerosis Electronically Signed: Ash Terrell MD at 7:52 EST ,
--- NOTE | 2023-07-21 07:02 | EKG12_ITS ---
Test Reason : CP Blood Pressure : / mmHG Vent. Rate : 084 BPM Atrial Rate : 084 BPM P-R Int : 168 ms QRS Dur : 084 ms QT Int : 408 ms P-R-T Axes : 022 029 049 degrees QTc Int : 482 ms Sinus rhythm with Premature atrial complexes Abnormal ECG When compared with ECG of 12-JUL-2023 18:38, Premature atrial complexes are now Present Confirmed by SHEYLA HUA, NABILA ([id number]), supervising film or videotape editor MATT TILLEY ([id number]) on 07/24/2023 5:51:20 AM Referred By: ZEFERINO Confirmed By:NABILA CARRION MD
--- NOTE | 2023-07-21 07:03 | EDS_ITS ---
HPI History of Present Illness Chief Complaint: Chest Pain Narrative Narrative: History of close limited secondary to Alzheimer's dementia. Patient presents via EMS from [facility] with confusion, and reported chest tightness. According to EMS, patient had COVID-19 a few weeks ago. He was admitted then discharged. Reportedly, he had chest tightness, but patient denies this. He states that he has been short of breath but for how long, he is unsure. He denies any fevers or chills but states he has a cough at times. No exacerbating or alleviating factors. [facility] Medical History Alcohol abuse Alcoholism Alzheimer's dementia Anxiety and depression Benign prostatic hypertrophy Dementia Desire for detoxification Former tobacco use Hyperlipidemia Hypertension Impingement of right shoulder Left lumbar radiculopathy Left shoulder pain Mild dementia Primary osteoarthritis, left shoulder Right shoulder pain Unable to care for self Home Medications atorvastatin 20 mg tablet 10 mg PO QHS cholesterol 01/18/16 [History Last Taken Unknown] donepezil 10 mg tablet 10 mg PO QHS memory 10/30/19 [History Last Taken Unknown] finasteride 5 mg tablet 5 mg PO DAILY prostate 10/30/19 [History Last Taken Unknown] meloxicam 15 mg tablet 15 mg PO DAILY pain 10/30/19 [History Last Taken Unknown] tamsulosin 0.4 mg capsule 0.4 mg PO DINNER prostate 10/30/19 [History Last Taken Unknown] acetaminophen 500 mg capsule 500 mg PO Q6H PRN fever or pain 11/07/22 [History Last Taken Unknown] doxycycline hyclate 100 mg capsule 100 mg PO DAILY dysfunction of eyelid 11/07/22 [History Last Taken Unknown] fluticasone propionate 50 mcg/actuation nasal spray,suspension (Flonase Allergy Relief) 1 spray intranasal DAILY allergies 11/07/22 [History Last Taken Unknown] gabapentin 300 mg capsule 300 mg PO BID nerve pain 11/07/22 [History Last Taken Unknown] guaifenesin 600 mg tablet, extended release 12 hr (Mucinex) 600 mg PO BID PRN cough 11/07/22 [History Last Taken Unknown] ibuprofen 200 mg capsule 400 mg PO Q6H PRN pain 11/07/22 [History Last Taken Unknown] ketotifen fumarate 0.025 % (0.035 %) eye drops (Alaway) 1 drp ophthalmic (eye) BID eyelid 11/07/22 [History Last Taken Unknown] loratadine 10 mg tablet (Claritin) 10 mg PO DAILY allergies 11/07/22 [History Last Taken Unknown] memantine 10 mg tablet (Namenda) 10 mg PO BID pain 11/07/22 [History Last Taken Unknown] omeprazole 20 mg capsule,delayed release 20 mg PO DAILY indigestion 11/07/22 [History Last Taken Unknown] clotrimazole-betamethasone 1 %-0.05 % topical cream 1 applic topical Q12H irritation to groin 07/12/23 [History Last Taken Unknown] erythromycin 5 mg/gram (0.5 %) eye ointment 1 applic ophthalmic (eye) Q eye health 07/12/23 [History Last Taken Unknown] lisinopril 10 mg tablet 10 mg PO DAILY bp 07/12/23 [History Last Taken Unknown] zinc oxide 20 % topical ointment 1 applic topical DAILY irritation 07/12/23 [History Last Taken Unknown] Allergy/AdvReac Type Severity Reaction Status Date / Time Benzodiazepines Allergy PT UNSURE Verified 07/21/23 06:55 OF REACTION losartan Allergy PT UNSURE Verified 07/21/23 06:55 OF REACTION morphine Allergy PT UNSURE Verified 07/21/23 06:55 OF REACTION Family History Other Diabetes Pancreatic cancer Surgical History Hx of appendectomy Previous back surgery Social History Smoking Status: Former smoker alcohol intake: current ROS ROS ED ROS Narrative Noted secondary to dementia. Constitutional: No fever, no chills. HEENT: No sore throat. No neck pain. No loss of vision. No rhinorrhea. Cardiovascular: Chest tightness/chest pain. No palpitations. No pedal edema. Respiratory: Positive cough, no shortness of breath. Abdominal: No abdominal pain. No nausea. No vomiting. Genitourinary: No dysuria. No hematuria. Musculoskeletal: No myalgias. No arthralgias. Neurologic: No headaches. No dizziness. No lightheadedness. Skin: No rash. No change in color. Psychiatric: No depression. No anxiety. EXAM Physical Exam Narrative Exam Narrative: Afebrile. Vital signs noted. HEENT: Normocephalic. Atraumatic. PERRL, EOMI. Neck soft and supple. No point tenderness or step off. Cardiovascular: Regular rate and rhythm. No murmurs, rubs, or gallops appreciated. Respiratory: No tachypnea. Lungs clear to auscultation bilaterally. Moving a good amount of air. Occasional cough on examination. Gastrointestinal: Abdomen soft, nontender, with normoactive bowel sounds. No rebound or guarding. Neurological: Awake. Alert. Nonfocal, nonlateralizing. Consistent with dementia. Skin: No rash. Normal color. No pallor. Musculoskeletal: No pedal edema. Full range of motion extremities. Const Vital Signs: 07/21/23 06:52 07/21/23 06:52 07/21/23 07:48 Temperature 98 F Temperature Source Oral Temporal Pulse Rate 93 Respiratory Rate 16 Respiratory Effort Blood Pressure 114/72 Blood Pressure Mean 86 Pulse Ox 100 98 Oxygen Delivery Method Room Air Room Air 07/21/23 10:58 07/21/23 10:58 Temperature Temperature Source Pulse Rate 68 Respiratory Rate 15 Respiratory Effort Normal Non-Labored Blood Pressure 132/74 H Blood Pressure Mean 93 Pulse Ox 98 Oxygen Delivery Method MDM MDM MDM Narrative Medical decision making narrative: Patient's reported confusion could be secondary to his history of Alzheimer's type dementia. Additionally, he may have a metabolic encephalopathy. I will obtain a urinalysis to help rule out urinary tract infection and a chest x-ray to help rule out pneumonia. In the differential diagnosis for his reported chest tightness is also acute coronary syndrome versus COPD exacerbation versus CHF. Comprehensive workup was pursued. EKG was obtained and interpreted by myself independently as normal sinus rhythm with premature supraventricular complexes at [address] changes. No STEMI. There is no significant change from an EKG dated July 12, 2023. I reviewed his laboratory work and he has a leukocytosis of 12.9 which I think is nonspecific, hemoglobin normal at 14.9, hematocrit 47.5, platelet count normal at 181. Review of his electrolyte panel shows chloride elevated at 111 which I think is nonspecific, BUN of 24 with creatinine 1.05, glucose appropr iately elevated at 93 with anion gap low at 4. BNP is normal at 32. Initial high-sensitivity troponin is 7 with a repeat at 2 hours also 7 for delta of 0. Urinalysis obtained and while he has 25-50 WBCs, he is not complaining of dysuria. He is was complaining of chest tightness and I do not think antibiotics are indicated, however this will be sent for culture. Chest x-ray in 1 view interpreted by myself shows no evidence of acute process. At this point in time, I feel he can be discharged back to [facility] facility. Disposition is discharged in stable condition. History & Record Review Discussion w/independent historian: Patient Additional record(s) reviewed:: Prior ED visit and Prior labs Lab Data Attestation: I reviewed the patient's lab results. Labs: Laboratory Results - last 24 hr 07/21/23 07/21/23 07/21/23 07:24 07:41 09:57 WBC 12.9 H RBC 4.77 Hgb 14.9 Hct 47.5 MCV 99.6 H MCH 31.2 MCHC 31.4 L RDW Std Deviation 50.0 H RDW Coeff of [place] 13.6 Plt Count 181 MPV 11.0 Immature Gran % (Auto) 0.600 Neut % (Auto) 42.0 L Lymph % (Auto) 50.4 H [place] % (Auto) 5.4 Eos % (Auto) 1.3 Baso % (Auto) 0.3 Absolute Neuts (auto) 5.4 Absolute Lymphs (auto) 6.48 H Nucleated RBC % 0 Differential Comment SCANNED Reactive Lymphocytes 1+ Sodium 141 Potassium 4.0 Chloride 111 H Carbon Dioxide 26.0 Anion Gap 4 L BUN 24 H Creatinine 1.05 Estim Creat Clear Calc 45.57 Est GFR (MDRD) Af Amer 86 Est GFR (MDRD) Non-Af 71 BUN/Creatinine Ratio 22.9 H Glucose 93 Calcium 8.5 Troponin I High Sens 7 7 B-Natriuretic Peptide 32.0 Urine Color Yellow Urine Clarity Clear Urine pH 6.0 Ur Specific [place] 1.010 Urine Protein 15 H Urine Glucose (UA) Normal Urine Ketones Negative Urine Occult Blood Negative Urine Nitrite Negative Urine Bilirubin Negative Urine Urobilinogen Normal Ur Leukocyte Esterase 500 H Urine RBC 0 SEEN Urine WBC 25-50 SEEN Ur Squamous Epith Cells 0-5 SEEN Urine Bacteria 0 SEEN Urine Mucus 0 SEEN Radiography Diagnostic Testing: Clinical Impression(s) from Imaging Studies Chest X-Ray 07/21/23 07:02 IMPRESSION: No radiographic evidence of acute cardiopulmonary disease. Aortic atherosclerosis Electronically Signed: Ash Terrell MD at 7:52 EST , Discharge Plan Triage Chief Complaint: Chest Pain ED Provider: Nito De León Dx/Rx/DC Orders Clinical Impression: Alzheimer's dementia, Chest tightness, Pyuria Instructions: ED DEMENTIA Alzheimer's, ED Chest Pain, Uncertain Cause Prescriptions: No Action acetaminophen 500 mg capsule 500 mg PO Q6H PRN (Reason: fever or pain) ketotifen fumarate [Alaway] 0.025 % (0.035 %) drops 1 drp ophthalmic (eye) BID Rx Instructions: administer at least 8 hours apart loratadine [Claritin] 10 mg tablet 10 mg PO DAILY doxycycline hyclate 100 mg capsule 100 mg PO DAILY fluticasone propionate [Flonase Allergy Relief] 50 mcg/actuation spray,suspension 1 spray intranasal DAILY Rx Instructions: administer into each nostril gabapentin 300 mg capsule 300 mg PO BID ibuprofen 200 mg capsule 400 mg PO Q6H PRN (Reason: pain) guaifenesin [Mucinex] 600 mg tablet extended release 12hr 600 mg PO BID PRN (Reason: cough) memantine [Namenda] 10 mg tablet 10 mg PO BID omeprazole 20 mg capsule,delayed release(DR/EC) 20 mg PO DAILY atorvastatin 20 MG tablet 10 mg PO QHS donepezil 10 MG tablet 10 mg PO QHS meloxicam 15 MG tablet 15 mg PO DAILY tamsulosin 0.4 mg capsule 0.4 mg PO DINNER Patient Comments: TAKE 1 CAPSULE BY MOUTH ONCE DAILY AT BEDTIME finasteride 5 MG tablet 5 mg PO DAILY clotrimazole-betamethasone 1-0.05 % cream 1 applic TOPICAL Q12H zinc oxide 20 % ointment 1 applic topical DAILY lisinopril 10 mg tablet 10 mg PO DAILY erythromycin 5 mg/gram (0.5 %) ointment 1 applic ophthalmic (eye) QHS Rx Instructions: apply to bilat eyes Primary Care Provider: Finn Cheung Referrals: Finn Cheung MD [Primary Care Provider] - As Needed Activity Restrictions/Additional Instructions: Urine cultures are pending. Disposition Disposition: Home, Self Care
[2023-07-21 07:29] LABS: Absolute Lymphocyte Count 6.48 X10^3/uL (0.83-4.51); Absolute Neutrophil Count 5.4 X10^3/uL (2.0-7.7); Basophil# 0.04 X10^3/uL; Basophil% 0.3 % (0-1); Eosinophil# 0.17 X10^3/uL; Eosinophils% 1.3 % (0-5); Hematocrit 47.5 % (40-54); Hemoglobin 14.9 g/dL (13.0-16.5); Lymphocyte # 6.48 X10^3/ul (0.83-4.51); Lymphocyte % 50.4 % (19-41); Mean Corp Hgb Conc 31.4 g/dL (32-36); Mean Corpuscular Hgb 31.2 pg (27.0-32.0); Mean Corpuscular Volume 99.6 fL (80-94); Monocyte% 5.4 % (0-10); NRBC Flagged by Analyzer 0 % (0-5); Neutrophil # 5.39 X10^3/uL (2.7-7.7); POSITIVE DIFFERENTIAL YES; POSITIVE MORPHOLOGY YES; Platelet Count 181 K/mm3 (150-450); RBC Distribution Width CV 13.6 % (11.6-14.6); Red Blood Count 4.77 M/mm3 (4.6-6.2); White Blood Count 12.9 K/mm3 (4.4-11.0)
[2023-07-21 07:34] LABS: Differential Indicated SCAN CRITERIA MET
[2023-07-21 07:46] LABS: Bacteria 0 SEEN /hpf (None Seen); Mucous, Urine 0 SEEN /hpf (<or=2+); Red Blood Cells-Urine 0 SEEN /hpf (0-5)
[2023-07-21 07:48] VITALS: O2SAT 98
[2023-07-21 07:55] LABS: Color, Urine Yellow (Yellow); Glucose, Dipstick Normal (Normal); Ketone-Dipstick Negative (Negative); Leukocyte Esterase-Dipstick 500 /ul (Negative); Nitrite-Dipstick Negative (Negative); Occult Blood-Urine Negative /ul (Negative); Protein-Dipstick 15 mg/dl (Negative); Urine Bilirubin Dipstick Negative (Negative); Urine Clarity Clear (Clear); Urine Urobilinogen Normal (Normal)
[2023-07-21 08:02] LABS: Squamous Epithelial Cells - UA 0-5 SEEN /hpf (0-5); White Blood Cells 25-50 SEEN /hpf (0-5)
[2023-07-21 08:07] LABS: Anion Gap 4 (5-15); BUN 24 mg/dL (7-18); BUN/Creat Ratio 22.9 RATIO (10-20); Calcium,Total 8.5 mg/dL (8.5-10.1); Chloride 111 mmol/L (98-107); Creatinine, Serum 1.05 mg/dL (0.70-1.30); EST Glomerular Filtration Rate 71 mL/min (>60); Est Glom Filt Rate - Afr Amer 86 mL/min (>60); Estimated Creatinine Clearance 45.57 ml/min; Glucose 93 mg/dL (74-106); Sodium Level 141 mmol/L (136-145); Troponin-I HS (w/2H Reflex) 7 pg/mL (3.0-78.0)
[2023-07-21 08:13] LABS: Differential Comment SCANNED; Reactive Lymphocyte 1+
[2023-07-21 09:46] LABS: Reflex Troponin-HS? (from REC) Y
[2023-07-21 10:19] LABS: Troponin-I HS 7 pg/mL (3.0-78.0)
[2023-07-21 10:58] VITALS: BP 132/74; PULSE 68; RESP 15; O2SAT 98
--- NOTE | 2023-07-21 11:14 | ED.RN ---
CALLED DAUGHTER PORTIA BURDICK AND UPDATE HER ON PT STATUS OF GOING HOME AND WHAT HE WAS DX WITH
== END 2023-07-21 11:50 | disposition home or self-care (01) ==
PROVIDERS: Emergency Provider Emergency Medicine; PCP Family Medicine; Visit Provider Emergency Medicine
DX: R07.89 Other chest pain (principal); G30.9 Alzheimer's disease, unspecified; F02.80 Dementia in other diseases classified elsewhere, unspecified severity, without behavioral disturbance, psychotic disturbance, mood disturbance, and anxiety; R82.81 Pyuria; I10 Essential (primary) hypertension; E78.5 Hyperlipidemia, unspecified; R06.02 Shortness of breath; F10.10 Alcohol abuse, uncomplicated; F41.9 Anxiety disorder, unspecified; F32.A Depression, unspecified; N40.0 Benign prostatic hyperplasia without lower urinary tract symptoms; Z79.899 Other long term (current) drug therapy; Z87.891 Personal history of nicotine dependence
CPT/HCPCS: 71045; 80048; 81001; 83880; 84484; 85025; 87077; 87086; 87088; 87186; 93005; 99284; A4216

== ENCOUNTER → 2023-08-04 | Outpatient (REF) | payer MEDICARE, MEDICAID, SELFPAY ==
[2023-08-04 08:02] LABS: Absolute Neutrophil Count 3.8 X10^3/uL (2.0-7.7); Basophil# 0.03 X10^3/uL; Basophil% 0.3 % (0-1); Eosinophil# 0.22 X10^3/uL; Eosinophils% 2.3 % (0-5); Hematocrit 41.4 % (40-54); Hemoglobin 13.3 g/dL (13.0-16.5); Lymphocyte % 52.6 % (19-41); Mean Corp Hgb Conc 32.1 g/dL (32-36); Mean Corpuscular Hgb 30.7 pg (27.0-32.0); Mean Corpuscular Volume 95.6 fL (80-94); Mean Platelet Vol. 10.6 fl (6.2-12.0); Monocyte# 0.52 X10^3/uL; Monocyte% 5.4 % (0-10); NRBC Flagged by Analyzer 0 % (0-5); Neutrophil # 3.75 X10^3/uL (2.7-7.7); Neutrophil % 38.6 % (47-70); POSITIVE DIFFERENTIAL YES; Platelet Count 158 K/mm3 (150-450); RBC Distribution Width CV 14.3 % (11.6-14.6); RBC Distribution Width SD 50.5 fl (35.1-43.9); Red Blood Count 4.33 M/mm3 (4.6-6.2); White Blood Count 9.7 K/mm3 (4.4-11.0)
[2023-08-04 08:03] LABS: Differential Indicated SCAN CRITERIA MET
[2023-08-04 08:26] LABS: Anion Gap 5 (5-15); BUN 32 mg/dL (7-18); BUN/Creat Ratio 20.9 RATIO (10-20); Calcium,Total 8.1 mg/dL (8.5-10.1); Chloride 114 mmol/L (98-107); Creatinine, Serum 1.53 mg/dL (0.70-1.30); EST Glomerular Filtration Rate 46 mL/min (>60); Est Glom Filt Rate - Afr Amer 56 mL/min (>60); Glucose 78 mg/dL (74-106); Potassium 4.2 mmol/L (3.5-5.1); Sodium Level 141 mmol/L (136-145)
== END ==
LOC: OLS.SWAL 05:00
PROVIDERS: PCP Family Medicine; Visit Provider Internal Medicine
DX: I10 Essential (primary) hypertension (principal)
CPT/HCPCS: 36415; 80048; 83735; 85025

== ENCOUNTER → 2023-08-13 | Outpatient (REF) | payer MEDICARE, MEDICAID, SELFPAY ==
--- OUTSIDE RECORDS SUMMARY | 2023-08-13 04:57 | XMS RPT_ITS | CCD ---
Author Name Unknown Address [address] [place] [address] Organization [facility] Care Team Providers Care Tire Beader Maker Name Role Phone Tamela Conn MD Primary Care Provider [phone] Allergies Allergy Classification Reported Allergen(s) Allergy Type Date of Onset Reaction(s) Facility (6 sources) Benzodiazepine Propensity to adverse reactions to drug 1 Other: See Comments [facility] Work Phone: (6 sources) Losartan Drug Allergy 7 Diarrhea [facility] Work Phone: [phone] (6 sources) Morphinan opioid Propensity to adverse reactions to drug 1 Other: See Comments [facility] Work Phone: (6 sources) Seasonal allergy Allergy to substance 5 Other: See Comments [facility] Work Phone: Medications Current Medications Medication Drug Class(es) Dates Sig (Normalized) Sig (Original) ammonium lactate 120 mg/ml topical lotion (5 sources) Start: 09-14-2021 End: 03-13-2022 ammonium lactate (LAC-HYDRIN) 12 % lotion Apply to affected area as needed. 396 g 3 09/14/2021 03/13/2022 Active Completed/Discontinued Medications Medication Drug Class(es) Dates Sig (Normalized) Sig (Original) donepezil hydrochloride 10 mg oral tablet (7 sources) Start: 02-11-2021 End: 02-19-2022 take 1 tablet by mouth once daily at bedtime donepezil (ARICEPT) 10 mg tablet Take 1 tablet by mouth daily at bedtime. 90 tablet 1 02/19/2022 Active Problems Active Problems Problem Classification Problem Date Documented Da te Episodic/Chronic Alcohol-related disorders (6 sources) Alcoholism; Translations: [Alcohol dependence, uncomplicated] Onset: 02-04-2022 02-04-2022 Chronic Chronic kidney disease (6 sources) Chronic kidney disease stage 3; Translations: [Chronic kidney disease, stage 3, mod decreased GFR] Onset: 06-29-2015 09-14-2021 Chronic Delirium, dementia, and amnestic and other cognitive disorders (6 sources) Mild dementia; Translations: [Unspecified dementia without behavioral disturbance] Onset: 03-28-2020 09-14-2021 Chronic Disorders of lipid metabolism (6 sources) Mixed hyperlipidemia; Translations: [Mixed hyperlipidemia] Onset: 03-31-2005 09-14-2021 Chronic Esophageal disorders (6 sources) Gastro-esophageal reflux disease with esophagitis; Translations: [Gastro-esophageal reflux disease with esophagitis] Onset: 01-10-2016 09-14-2021 Chronic Essential hypertension (7 sources) Benign essential hypertension; Translations: [Essential (primary) hypertension] Onset: 03-31-2005 09-14-2021 Chronic Hyperplasia of prostate (6 sources) Benign prostatic hypertrophy with outflow obstruction; Translations: [Benign prostatic hyperplasia with lower urinary tract symptoms] Onset: 08-29-2010 09-14-2021 Chronic Miscellaneous mental health disorders (7 sources) Chronic insomnia; Translations: [Psychophysiologic insomnia] Onset: 03-23-2018 02-05-2022 Chronic Other male genital disorders (6 sources) Male erectile dysfunction, unspecified; Translations: [Impotence of organic origin] Onset: 10-08-2011 09-14-2021 Chronic Unclassified (1 source) Active living will ; Translations: [Living will on file] Onset: 09-14-2021 09-14-2021 Past or Other Problems Problem Classification Problem Date Documented Da te Episodic/Chronic Allergic reactions (6 sources) Eczema; Translations: [Dermatitis, unspecified] Onset: 06-14-2015 09-14-2021 Episodic Cancer; other and unspecified primary (6 sources) History of squamous cell carcinoma; Translations: [Personal history of malignant neoplasm of other organs and systems] Onset: 09-14-2021 09-14-2021 Episodic Other aftercare (12 sources) Patient encounter status; Translations: [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 therapy] Onset: 07-01-2016 07-01-2016 Episodic Other screening for suspected conditions (not mental disorders or infectious disease) (7 sources) Raised prostate specific antigen; Translations: [Elevated prostate specific antigen [PSA]] Onset: 04-24-2008 09-14-2021 Episodic Other skin disorders (6 sources) Actinic keratosis; Translations: [Actinic keratosis] Onset: 01-25-2009 09-14-2021 Episodic Residual codes; unclassified (5 sources) Active living will ; Translations: [Personal history of other specified conditions] Onset: 09-14-2021 09-14-2021 Episodic Spondylosis; intervertebral disc disorders; other back problems (12 sources) Lumbar disc prolapse with radiculopathy; Translations: [Intervertebral disc disorders with radiculopathy, lumbar region] Onset: 03-18-2012 09-14-2021 Episodic Encounters Encounter Date Encounter Type Care Provider Facility Start: 11-10-2022 Chart abstracting Tamela mota MD Work Phone: [facility] Plan of Treatment Date Care Activity Detail Author Start: 03-22-2030 Urine microalbumin profile DTA P,TDAP,TD (5 - Td or Tdap) [facility] Start: 10-29-2029 Urine microalbumin profile DTA P,TDAP,TD (4 - Td or Tdap) [facility] Start: 09-14-2024 DIABETES SCREEN DIABETES SCREEN [facility] Start: 09-14-2022 SHINGRIX VACCINE (2 of 3) RODRIGUES GRIX VACCINE (2 of 3) [facility] Immunizations Immunization Date Immunization Notes Care Provider Fa fadi 05-06-2022 COVID-19 booster vaccine, age 12+ yr, bivalent (PFIZER-BIONTECH) Tamela Conn MD Work Phone: [facility] 05-06-2022 influenza (aIIV4) vaccine, age 65+ yr, quadrivalent, PF (FLUAD QUAD) Tamela Conn MD Work Phone: [facility] 09-14-2021 pneumococcal polysaccharide vaccine, 23 valent Tamela Conn MD Work Phone: [facility] 07-03-2021 COVID-19 vaccine, ag e 12+ yr (PFIZER-BIONTECH - PURPLE TOP) Tamela Conn MD Work Phone: [facility] 07-01-2021 influenza, high dose seasonal, preservative-free Tamela Conn MD Work Phone: [facility] 04-11-2020 influenza, high-dose , quadrivalent vaccine (FLUZONE HIGH DOSE QUADRIVALENT) Tamela Conn MD Work Phone: [facility] 03-22-2020 tetanus toxoid, redu chetna diphtheria toxoid, and acellular pertussis vaccine, adsorbed Tamela Conn MD Work Phone: [facility] 10-30-2019 tetanus toxoid, redu chetna diphtheria toxoid, and acellular pertussis vaccine, adsorbed Tamela Conn MD Work Phone: [facility] 05-17-2019 influenza, high dose seasonal, preservative-free Tamela Conn MD Work Phone: [facility] 04-23-2018 influenza, high dose seasonal, preservative-free Tamela Conn MD Work Phone: [facility] 06-19-2017 tetanus and diphther ia toxoids, adsorbed, preservative free, for adult use (5 Lf of tetanus toxoid and 2 Lf of diphtheria toxoid) Tamela Conn MD Work Phone: [facility] 04-30-2017 influenza, high dose seasonal, preservative-free Tamela Conn MD Work Phone: [facility] 04-22-2016 influenza, high dose seasonal, preservative-free Tamela Conn MD Work Phone: [facility] 05-15-2015 influenza, high dose seasonal, preservative-free Tamela Conn MD Work Phone: [facility] 05-15-2015 pneumococcal conjuga te vaccine, 13 valent Tamela Conn MD Work Phone: [facility] 05-21-2013 influenza virus vacc ine, unspecified formulation Tamela Conn MD Work Phone: [facility] Work Phone: 05-17-2013 influenza virus vacc ine, unspecified formulation Tamela Conn MD Work Phone: [facility] 05-05-2012 zoster vaccine, live Tamela Conn MD Work Phone: [facility] 05-11-2007 tetanus toxoid, redu chetna diphtheria toxoid, and acellular pertussis vaccine, adsorbed Tamela Conn MD Work Phone: [facility] Work Phone: 04-22-2006 pneumococcal polysaccharide vaccine, 23 valent Tamela Conn MD Work Phone: [facility] Work Phone: Payers Date Payer Category Payer Medicare [employer] [place] [id number] 2009-Present [phone] [address] [place] [address] O [id number] 2009 Medicare [employer] [place] [place] [id number] 2009-Present [phone] [address] [place] [address] O [id number] Social History Date Type Detail Facility [facility]: [facility] Work Phone: End: 03-17-2009 History of tobacco use Current smoker [facility] Work Phone: End: 03-17-2009 History of tobacco use Cigar Smoker [facility] Work Phone: Start: 02-04-2022 End: 03-19-2022 Alcohol intake Ex-drinker (finding) [facility] Start: 02-04-2022 End: 03-19-2022 Alcohol intake [facility] Start: 09-17-2019 End: 05-25-2020 History SDOH Alcohol Frequency 5 [facility] Start: 02-27-2020 End: 05-25-2020 History SDOH Alcohol Std Drinks 1 [facility] Start: 02-27-2020 History SDOH Social Connections Phone 4 [facility] Start: 09-17-2019 End: 02-27-2020 History SDOH Social Connections Get Together 2 [facility] Start: 09-17-2019 History SDOH Social Connections Living 3 [facility] Start: 09-17-2019 Education 15 [facility] Start: 04-13-2013 Tobacco Comment 6-7 years, occ asional cigar [facility] Start: 1935 Sex Assigned At Male [facility] Work Phone: Start: 04-13-2013 Tobacco use and exposure Smoke less tobacco non-user [facility] Clinical Notes 01-20-2019 to 07-13-2023 Nathalie Vila MA - 11/10/2022 1:42 PM EDTTelephone Encounter - Tamela Conn MD - 02/19/2022 1:01 PM EDTTelephone Encounter - Raina Luna Ma - 02/19/2022 9:51 AM EDT Note Date & Type Note Facility 07-13-2023 Note HNO ID: [id number] Author: David London LPN Service: ? Author Type: ? Type: Progress Notes Filed: 07/13/2023 8:38 AM Note Text: Scan on 07/12/2023 10:15 PM by ProviderEliud PA-C: Consultation - Emergency Medicine Scan on 07/12/2023 8:14 PM by ProviderEliud PA-C: X-ray Scan on 07/13/2023 6:03 AM by ProviderEliud PA-C [facility] 11-10-2022 Note HNO ID: [id number] Author: Nathalie Vila MA Service: ? Author Type: Surgical Instrument Technician Type: Progress Notes Filed: 11/10/2022 3:23 PM Note Text: Scan on 11/07/2022 12:37 PM by External Provider: X-ray Scan on 11/07/2022 1:25 PM by External Provider: X-ray Nathalie Vila MA [facility] 11-10-2022 History of Presen t illness Narrative Scan on 11/07/2022 12:37 PM by External Provider: X-ray Scan on 11/07/2022 1:25 PM by External Provider: X-ray Nathalie Vila MA documented in this encounter [facility] 02-19-2022 Miscellaneous Notes The following approved medication requests have been transmitted electronically. Signed Prescriptions Disp Refills donepezil (ARICEPT) 10 mg tablet 90 tablet 1 Sig: Take 1 tablet by mouth daily at bedtime. MARY: No Authorizing Provider: TAMELA CONN tamsulosin (FLOMAX) 0.4 mg 90 capsule 1 Sig: Take 1 capsule by mouth daily at bedtime. MARY: No Authorizing Provider: TAMELA CONN lisinopril-hydroCHLOROthiazide (PRINZIDE,ZESTORETIC) 10-12.5 mg per tablet 90 tablet 1 Sig: Take 1 tablet by mouth every morning. MARY: No Authorizing Provider: TAMELA CONN meloxicam (MOBIC) 15 mg tablet 90 tablet 1 Sig: Take 1 tablet by mouth once daily. MARY: No Authorizing Provider: TAMELA CONN MD Spoke to patient son James and went over med list an pended refills on what is needed. Please send to Aubrey Luna Ma documented in this encounter [facility] 02-17-2022 Miscellaneous Notes Copied and taken to medical records. Nathalie Vila MA Forms completed for both parents and ready for belt picker. (I already mead copies to be scanned into both charts) documented in this encounter [facility] 02-05-2022 History of Presen t illness Narrative ER summary form [facility] FYI David London LPN Scan on 02/05/2022 3:38 AM by External Provider: Consultation - Emergency Medicine documented in this encounter [facility] 02-05-2022 Miscellaneous Notes Daughter was notified and aware of provider message below. Daughter advised that its not that easy to place parents in assisted living or penitentiary against there will and could severe relationship. Advised he understands but on his end not able to make that call either. Went over part of driving and they understand that letter in past has been submitted but [facility] does make patients take driving test an if pass they are able to keep DL Raina Luna Ma Sounds like both parents should be admitted for inpatient alcohol detox and then go from there. If neither parent can care for themselves and family not able to provide extensive care then being in assisted living or penitentiary home permanently would be the best options and the hospital clinical social worker can assist. I don't do detox. Doctors don't take away driving privileges. Family can discuss with [facility] about concerns or just remove car keys and vehicles from patient's home. See TE for Helene as well. Patient daughter Lisa Wilcox calling father is currently in [facility] for alcohol abuse and dementia. Daughter said his clinical social worker wants to have him go to assisted living facility, he can be alone. They wanted him to go to [facility] but no bed available right now. Daughter is wanting his driving privileges taken away also. One of the out of state son said he may take care of father until bed is ready at [facility] per Lisa, he had just come to town. Daughter wanted to set up appt for parents, was asking for any help with her parents. Please advise documented in this encounter [facility] documented as of this encounter (statuses as of 02/05/2022) [facility] History of Past illness Narrative* Problem Noted Date Resolved Date Daytime sleepiness 01/20/2019 11/11/2019 Intertrigo 07/15/2018 11/11/2019 Impingement syndrome of left shoulder 07/01/2016 11/11/2019 Chronic prescription opiate use 07/01/2016 07/08/2018 SI (sacroiliac) joint dysfunction 06/13/2015 03/23/2018 Anemia due to GI blood loss 03/29/201503/04 Hypokalemia 12/07/2014 09/23/2017 Low testosterone 10/12/2012 09/11/2017 Vitamin D deficiency 06/28/2012 09/11/2017 Foot drop, left 05/05/2012 11/11/2019 Supraspinatus tendonitis 01/20/2012 015 Strain of gluteus medius 06/06/2011 015 Sciatica 06/08/2009 10/23/2014 Unspecified vitamin D deficiency 01/29/2009 10/08/2011 Nonspecific abnormal results of liver function s tudy 01/29/2009 11/11/2019 Calculus of kidney 04/10/2008 10/23/2014 Shortness of breath 12/04/2006 10/23/2014 Plantar fascial fibromatosis 03/31/2005 documented as of this encounter (statuses as of 02/05/2022) [facility] History of Past illness Narrative* Problem Noted Date Resolved Date Daytime sleepiness 01/20/2019 11/11/2019 Intertrigo 07/15/2018 11/11/2019 Impingement syndrome of left shoulder 07/01/2016 11/11/2019 Chronic prescription opiate use 07/01/2016 07/08/2018 SI (sacroiliac) joint dysfunction 06/13/2015 03/23/2018 Anemia due to GI blood loss 03/29/201503/04 Hypokalemia 12/07/2014 09/23/2017 Low testosterone 10/12/2012 09/11/2017 Vitamin D deficiency 06/28/2012 09/11/2017 Foot drop, left 05/05/2012 11/11/2019 Supraspinatus tendonitis 01/20/2012 015 Strain of gluteus medius 06/06/2011 015 Sciatica 06/08/2009 10/23/2014 Unspecified vitamin D deficiency 01/29/2009 10/08/2011 Nonspecific abnormal results of liver function s tudy 01/29/2009 11/11/2019 Calculus of kidney 04/10/2008 10/23/2014 Shortness of breath 12/04/2006 10/23/2014 Plantar fascial fibromatosis 03/31/2005 documented as of this encounter (statuses as of 02/17/2022) [facility] History of Past illness Narrative* Problem Noted Date Resolved Date Daytime sleepiness 01/20/2019 11/11/2019 Intertrigo 07/15/2018 11/11/2019 Impingement syndrome of left shoulder 07/01/2016 11/11/2019 Chronic prescription opiate use 07/01/2016 07/08/2018 SI (sacroiliac) joint dysfunction 06/13/2015 03/23/2018 Anemia due to GI blood loss 03/29/201503/04 Hypokalemia 12/07/2014 09/23/2017 Low testosterone 10/12/2012 09/11/2017 Vitamin D deficiency 06/28/2012 09/11/2017 Foot drop, left 05/05/2012 11/11/2019 Supraspinatus tendonitis 01/20/2012 015 Strain of gluteus medius 06/06/2011 015 Sciatica 06/08/2009 10/23/2014 Unspecified vitamin D deficiency 01/29/2009 10/08/2011 Nonspecific abnormal results of liver function s tudy 01/29/2009 11/11/2019 Calculus of kidney 04/10/2008 10/23/2014 Shortness of breath 12/04/2006 10/23/2014 Plantar fascial fibromatosis 03/31/2005 documented as of this encounter (statuses as of 02/19/2022) [facility] History of Past illness Narrative* Problem Noted Date Resolved Date Daytime sleepiness 01/20/2019 11/11/2019 Intertrigo 07/15/2018 11/11/2019 Impingement syndrome of left shoulder 07/01/2016 11/11/2019 Chronic prescription opiate use 07/01/2016 07/08/2018 SI (sacroiliac) joint dysfunction 06/13/2015 03/23/2018 Anemia due to GI blood loss 03/29/201503/04 Hypokalemia 12/07/2014 09/23/2017 Low testosterone 10/12/2012 09/11/2017 Vitamin D deficiency 06/28/2012 09/11/2017 Foot drop, left 05/05/2012 11/11/2019 Supraspinatus tendonitis 01/20/2012 015 Strain of gluteus medius 06/06/2011 015 Sciatica 06/08/2009 10/23/2014 Unspecified vitamin D deficiency 01/29/2009 10/08/2011 Nonspecific abnormal results of liver function s tudy 01/29/2009 11/11/2019 Calculus of kidney 04/10/2008 10/23/2014 Shortness of breath 12/04/2006 10/23/2014 Plantar fascial fibromatosis 03/31/2005 documented as of this encounter (statuses as of 11/11/2022) [facility] Diagnosis Chronic insomnia Insomnia, unspecified [facility] Diagnosis Elevated prostate specific antigen (PSA) Essential hypertension, benign documented in this encounter [facility] Advance Directives No Advanced Directives Records FoundDocuments on File Type Date Recorded 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 Advance Directive(s) 05/31/2018 9:55 AM Summary Purpose Family History No Family History Records Found Additional Source Comments Source Comments (unrecognize d section and content) In the event this informatio n is protected by the Federal Confidentiality of Alcohol and Drug Abuse Patient Records regulations: The Federal rules restrict any use of the information to criminally investigate or prosecute any alcohol or drug abuse patient.[facility] the event this information is protected by the Federal Confidentiality of Alcohol and Drug Abuse Patient Records regulations: The Federal rules restrict any use of the information to criminally investigate or prosecute any alcohol or drug abuse patient.[facility] the event this information is protected by the Federal Confidentiality of Alcohol and Drug Abuse Patient Records regulations: The Federal rules restrict any use of the information to criminally investigate or prosecute any alcohol or drug abuse patient.[facility] the event this information is protected by the Federal Confidentiality of Alcohol and Drug Abuse Patient Records regulations: The Federal rules restrict any use of the information to criminally investigate or prosecute any alcohol or drug abuse patient.[facility] the event this information is protected by the Federal Confidentiality of Alcohol and Drug Abuse Patient Records regulations: The Federal rules restrict any use of the information to criminally investigate or prosecute any alcohol or drug abuse patient.[facility] the event this information is protected by the Federal Confidentiality of Alcohol and Drug Abuse Patient Records regulations: The Federal rules restrict any use of the information to criminally investigate or prosecute any alcohol or drug abuse patient.[facility] Reason for Visit (unrecogniz ed section and content) Reason Comments ER Summary Reason Onset Date Comments Refill Request 02/19/2022 Reason Comments Xray Results Care Teams (unrecognized sec tion and content) Tire Beader Maker Relationship Specialty Start Date End Date Tamela Conn MD [facility] [place], [place] [address] PCP - General Family Practice 02/11/21 Tire Beader Maker Relationship Specialty Start Date End Date Tamela Conn MD [facility] [place] [address] PCP - General Family Practice 02/11/21 Tire Beader Maker Relationship Specialty Start Date End Date Tamela Conn MD [address] [place] [id number] PCP - General Family Practice 02/11/21 Tire Beader Maker Relationship Specialty Start Date End Date Tamela Conn MD [address] [place] [id number] PCP - General Family Practice 02/11/21 Tire Beader Maker Relationship Specialty Start Date End Date Tamela Conn MD [address] [place] [id number] PCP - General Family Medicine 02/11/21 (unrecognized sect ion and content) No Status Records Found INFORMATION SOURCE (unrecogn ized section and content) FOR RECORDS PERTAINING TO PATIENTS WHO ARE OR HAVE BEEN ENROLLED IN A CHEMICAL DEPENDENCY/SUBSTANCEABUSE PROGRAM, SOME INFORMATION MAY BE OMITTED. This clinical summary was aggregated from multiple sources. Caution should be exercised in using it in the provision of clinical care. This summary normalizes information from multiple sources, and as a consequence, information in this document may materially change the coding, format and clinical context of patient data. In addition, data may be omitted in some cases. CLINICAL DECISIONS SHOULD BE BASED ON THE PRIMARY CLINICAL RECORDS. [employer] [facility]. provides no warranty or guarantee of the accuracy or completeness of information in this document.
[2023-08-13 09:50] LABS: Anion Gap 7 (5-15); BUN 24 mg/dL (7-18); BUN/Creat Ratio 20.9 RATIO (10-20); Calcium,Total 8.5 mg/dL (8.5-10.1); Chloride 113 mmol/L (98-107); Creatinine, Serum 1.15 mg/dL (0.70-1.30); EST Glomerular Filtration Rate 64 mL/min (>60); Est Glom Filt Rate - Afr Amer 77 mL/min (>60); Glucose 79 mg/dL (74-106); Potassium 3.6 mmol/L (3.5-5.1); Sodium Level 143 mmol/L (136-145)
== END ==
LOC: OLS.SWAL 05:00
PROVIDERS: PCP Family Medicine; Visit Provider Internal Medicine
DX: N17.9 Acute kidney failure, unspecified (principal)
CPT/HCPCS: 36415; 80048

== ENCOUNTER 2023-11-10 06:53 | Emergency (ER) | payer MEDICARE, MEDICAID, SELFPAY ==
[2023-11-10 06:55] VITALS: BP 202/131; PULSE 86; RESP 14; TEMP 36.9; O2SAT 97; BMI 22.5
--- NOTE | 2023-11-10 07:15 | EDS_ITS ---
HPI HPI - Fall History of Present Illness Chief Complaint: Fall Informant: patient, EMS and SNF Limited: dementia Occured/Mechanism Occurred: Today Mechanism/Context: Yes cannot recall fall Pain/Injury Pain Location: head and neck Quality of Pain: Sharp Worsened by: Palpation Relieved by: Nothing Associated Symptoms Associated Symptoms: Negative for Weakness Narrative Narrative: Patient presents after a fall that occurred today. Patient had an unwitnessed fall and was found on the floor this morning by [facility] staff. Patient has a history of dementia and is a poor informant. Patient complains of pain in his neck. long-term staff reports that the patient as his normal mental status at this time. Patient is moving all extremities. Patient denies any weakness. long-term staff reports that the patient's last tetanus was in 2019. Tetanus Immunization: <5 years [facility] Medical History Alcohol abuse Alcoholism Alzheimer's dementia Anxiety and depression Benign prostatic hypertrophy Dementia Desire for detoxification Former tobacco use Hyperlipidemia Hypertension Impingement of right shoulder Left lumbar radiculopathy Left shoulder pain Mild dementia Primary osteoarthritis, left shoulder Right shoulder pain Unable to care for self Home Medications atorvastatin 20 mg tablet 10 mg PO QHS cholesterol 01/18/16 [History Last Taken Unknown] donepezil 10 mg tablet 10 mg PO QHS memory 10/30/19 [History Last Taken Unknown] finasteride 5 mg tablet 5 mg PO DAILY prostate 10/30/19 [History Last Taken Unknown] meloxicam 15 mg tablet 15 mg PO DAILY pain 10/30/19 [History Last Taken Unknown] tamsulosin 0.4 mg capsule 0.4 mg PO DINNER prostate 10/30/19 [History Last Taken Unknown] acetaminophen 500 mg capsule 500 mg PO Q6H PRN fever or pain 11/07/22 [History Last Taken Unknown] doxycycline hyclate 100 mg capsule 100 mg PO DAILY dysfunction of eyelid 11/07/22 [History Last Taken Unknown] fluticasone propionate 50 mcg/actuation nasal spray,suspension (Flonase Allergy Relief) 1 spray intranasal DAILY allergies 11/07/22 [History Last Taken Unknown] gabapentin 300 mg capsule 300 mg PO BID nerve pain 11/07/22 [History Last Taken Unknown] guaifenesin 600 mg tablet, extended release 12 hr (Mucinex) 600 mg PO BID PRN cough 11/07/22 [History Last Taken Unknown] ibuprofen 200 mg capsule 400 mg PO Q6H PRN pain 11/07/22 [History Last Taken Unknown] ketotifen fumarate 0.025 % (0.035 %) eye drops (Alaway) 1 drp ophthalmic (eye) BID eyelid 11/07/22 [History Last Taken Unknown] loratadine 10 mg tablet (Claritin) 10 mg PO DAILY allergies 11/07/22 [History Last Taken Unknown] memantine 10 mg tablet (Namenda) 10 mg PO BID pain 11/07/22 [History Last Taken Unknown] omeprazole 20 mg capsule,delayed release 20 mg PO DAILY indigestion 11/07/22 [History Last Taken Unknown] clotrimazole-betamethasone 1 %-0.05 % topical cream 1 applic topical Q12H irritation to groin 07/12/23 [History Last Taken Unknown] erythromycin 5 mg/gram (0.5 %) eye ointment 1 applic ophthalmic (eye) QHS eye health 07/12/23 [History Last Taken Unknown] lisinopril 10 mg tablet 10 mg PO DAILY bp 07/12/23 [History Last Taken Unknown] zinc oxide 20 % topical ointment 1 applic topical DAILY irritation 07/12/23 [History Last Taken Unknown] sulfamethoxazole 800 mg-trimethoprim 160 mg tablet (Bactrim DS) 1 tab PO BID 7 days #14 tabs 07/24/23 [Rx Last Taken Unknown] Allergy/AdvReac Type Severity Reaction Status Date / Time Benzodiazepines Allergy PT UNSURE Verified 11/10/23 06:55 OF REACTION losartan Allergy PT UNSURE Verified 11/10/23 06:55 OF REACTION morphine Allergy PT UNSURE Verified 11/10/23 06:55 OF REACTION Family History Other Diabetes Pancreatic cancer Surgical History Hx of appendectomy Previous back surgery Social History Smoking Status: Former smoker alcohol intake: current ROS ROS ED Review of Systems ROS Unobtainable: due to encephalopathy Constitutional Constitutional ED: Denies chills or fever(s) Eyes Eyes: Denies blurry vision or change in vision ENT ENT ED: Denies rhinorrhea or sore throat Cardiovascular Cardiovascular: Denies chest pain or palpitations Respiratory/Chest Respiratory/Chest: Denies cough or dyspnea Gastrointestinal Gastrointestinal: Denies nausea or vomiting Genitourinary Genitourinary ED: Denies dysuria or hematuria Musculoskeletal Musculoskeletal: Denies back pain or neck pain Integumentary Denies abscess or rash Neurologic Neurologic: Denies headache(s) or weakness Allergic/Immunologic Allergic/Immunologic ED: Denies mouth swelling or urticaria EXAM Physical Exam Const Vital Signs: 11/10/23 06:55 11/10/23 07:10 11/10/23 07:24 Temperature 98.4 F Temperature Source Temporal Pulse Rate 86 86 Respiratory Rate 14 20 H Respiratory Effort Normal Non-Labored Blood Pressure 202/131 H 208/95 H Blood Pressure Mean 154 132 Pulse Ox 97 96 Oxygen Delivery Method Room Air Room Air Room Air 11/10/23 09:22 11/10/23 11:24 11/10/23 13:00 Temperature Temperature Source Pulse Rate 62 76 67 Respiratory Rate 14 17 17 Respiratory Effort Blood Pressure 151/113 H 172/99 H 128/73 H Blood Pressure Mean 125 123 89 Pulse Ox 96 99 Oxygen Delivery Method Room Air 11/10/23 13:34 Temperature 97 F L Temperature Source Pulse Rate 72 Respiratory Rate 18 Respiratory Effort Blood Pressure 146/76 H Blood Pressure Mean 99 Pulse Ox 99 Oxygen Delivery Method Positive well nourished and well developed General Appearance ED: well developed and NAD Eyes PERRL and EOMs intact bilaterally Neck Neck Narrative: There is tenderness over the cervical spine. There is no ecchymosis noted. Range of motion was limited in all motions of the cervical spine secondary to pain. Resp normal respiratory effort and clear to auscultation bilaterally Cardio regular rate and regular rhythm GI non-distended Palpation: soft Neuro CN's II-XII intact bilaterally, moves all extremities, no focal motor deficits and no sensory deficits noted Sensorium / Orientation: alert, oriented to person, orientation impaired and confused Psych mental status grossly normal MDM MDM MDM Narrative Medical decision making narrative: Differential diagnosis includes intracranial bleeding, cervical spine fracture, and contusion. CT scan of the brain will be obtained to assess for intracranial bleeding. CT scan of the cervical spine will be obtained to assess for cervical spine fracture. Radiography Diagnostic Testing: Clinical Impression(s) from Imaging Studies Brain CT 11/10/23 08:19 IMPRESSION: Chronic involutional changes of the brain. Small scalp hematoma overlying the right frontal bone. Partial opacification of the left axillary sinus and ethmoid sinuses. Electronically Signed: Jimi Avendano MD at 9:28 EDT , Cervical Spine CT 11/10/23 08:19 IMPRESSION: Multilevel degenerative changes, as described above. Transverse fracture at the base of the odontoid with a 4 mm posterior displacement. The underlying bone is not normal and this may represent a pathological fracture. N.B. : The above Results were Read Back by Jimi Avendano MD to James Harrison DO, and understanding confirmed on 11/10/2023 09:23:42 (ET). Electronically Signed: Jimi Avendano MD at 9:24 EDT , ADDENDUM: 11/10/23 0931 IMPRESSION: Multilevel degenerative changes, as described above. Transverse fracture at the base of the odontoid with a 4 mm posterior displacement. The underlying bone is not normal and this may represent a pathological fracture. N.B. : The above Results were Read Back by Jimi Avendano MD to James Harrison DO, and understanding confirmed on 11/10/2023 09:23:42 (ET). Electronically Signed: Jimi Avendano MD at 9:24 EDT , CT scan of the brain was obtained. There is no acute intracranial abnormality. There are chronic involutional changes noted. This was interpreted by the radiologist and was also independently reviewed by myself. CT scan of the cervical spine was obtained. There is a fracture of the base of the odontoid. There is approximately 4 mm of posterior displacement. This could be a pathologic fracture. This was interpreted by the radiologist was also independently reviewed by myself. Treatment and Re-Evaluation Narrative: Patient was removing his cervical collar here in the emergency department. Patient was getting out of bed and trying to ambulate. Patient was advised of the need to remain in a cervical collar. Patient was medicated with Haldol. Patient had minimal improvement with this. Patient was given a dose of Geodon. Patient was placed on a backboard in addition to the cervical collar. Patient tolerated this better. Results were discussed with the family. They are unsure if they would want the patient to have any possible surgery for the odontoid fracture. Case was discussed with Dr. Malone, orthopedic spine surgeon, he states that he does not treat odontoid fractures and the patient will need to be transferred to a trauma center for neurosurgery. Case was discussed with [facility] per family request. Patient will be transferred there for trauma evaluation. Patient was accepted to the emergency department to the service of Dr. Siu. Family understood and was agreeable with the plan. All questions were answered. Discharge Plan Triage Chief Complaint: Fall ED Provider: James Harrison Dx/Rx/DC Orders Clinical Impression: Odontoid fracture, Fall Prescriptions: No Action acetaminophen 500 mg capsule 500 mg PO Q6H PRN (Reason: fever or pain) ketotifen fumarate [Alaway] 0.025 % (0.035 %) drops 1 drp ophthalmic (eye) BID Rx Instructions: administer at least 8 hours apart loratadine [Claritin] 10 mg tablet 10 mg PO DAILY doxycycline hyclate 100 mg capsule 100 mg PO DAILY fluticasone propionate [Flonase Allergy Relief] 50 mcg/actuation spray,suspension 1 spray intranasal DAILY Rx Instructions: administer into each nostril gabapentin 300 mg capsule 300 mg PO BID ibuprofen 200 mg capsule 400 mg PO Q6H PRN (Reason: pain) guaifenesin [Mucinex] 600 mg tablet extended release 12hr 600 mg PO BID PRN (Reason: cough) memantine [Namenda] 10 mg tablet 10 mg PO BID omeprazole 20 mg capsule,delayed release(DR/EC) 20 mg PO DAILY atorvastatin 20 MG tablet 10 mg PO QHS donepezil 10 MG tablet 10 mg PO QHS meloxicam 15 MG tablet 15 mg PO DAILY tamsulosin 0.4 mg capsule 0.4 mg PO DINNER Patient Comments: TAKE 1 CAPSULE BY MOUTH ONCE DAILY AT BEDTIME finasteride 5 MG tablet 5 mg PO DAILY clotrimazole-betamethasone 1-0.05 % cream 1 applic TOPICAL Q12H zinc oxide 20 % ointment 1 applic topical DAILY lisinopril 10 mg tablet 10 mg PO DAILY erythromycin 5 mg/gram (0.5 %) ointment 1 applic ophthalmic (eye) QHS Rx Instructions: apply to bilat eyes sulfamethoxazole-trimethoprim [Bactrim DS] 800-160 mg tablet 1 tab PO BID 7 Days Qty: 14 0RF Primary Care Provider: Finn Cheung Referrals: Finn Cheung MD [Primary Care Provider] - Disposition Disposition: Acute Care Hospital Discharge Location: [facility] Discharge Date/Time: 11/10/23 14:52
[2023-11-10 07:24] VITALS: BP 208/95; PULSE 86; RESP 20; O2SAT 96
--- NOTE | 2023-11-10 08:19 | CT_ITS ---
STUDY: CT CERVICAL SPINE WITHOUT CONTRAST REASON FOR EXAM: Male, 88 years old. Neck injury. Unwitnessed fall. Neck pain. RADIATION DOSAGE (If Supplied By Facility): CTDIvol = ( 20.09 ) mGy, DLP = ( 422.72 ) mGycm TECHNIQUE: High resolution transaxial imaging was performed without contrast material. Sagittal and coronal images were reconstructed. Individualized dose optimization techniques were used for this CT. COMPARISON: None FINDINGS: Normal craniovertebral junction. There are degenerative changes of the anterior atlantoaxial articulation. There is evidence of a transverse fracture at the base of the odontoid process. There is posterior displacement of the odontoid. The displacement measures 4 mm. The underlying bony density is abnormal. This may represent a pathological fracture. Normal cervical lordosis. C2-3: Minimal degree of anterolisthesis of C2 on C3. Facet joint osteoarthritis and hypertrophy. C3-4: Marked degree of disc space narrowing and spondylosis. Uncovertebral arthrosis. Bilateral neural foraminal stenosis. C4-5: Marked degree of disc space narrowing. Spondylosis. Uncovertebral arthrosis. Moderate degree of bilateral neural foraminal stenosis. C5-6: Marked degree of disc space narrowing. Spondylosis. Bilateral uncovertebral arthrosis. C6-7: Marked degree of disc space narrowing. Spondylosis. Bilateral neural foraminal stenosis. C7-T1: Normal endplates. Normal disc height and morphology. Normal central canal and intervertebral neuroforamina. Atherosclerotic calcification of the aortic arch. CT/Spine Cervical without Contras IMPRESSION: Multilevel degenerative changes, as described above. Transverse fracture at the base of the odontoid with a 4 mm posterior displacement. The underlying bone is not normal and this may represent a pathological fracture. N.B. : The above Results were Read Back by Jimi Avendano MD to James Harrison DO, and understanding confirmed on 11/10/2023 09:23:42 (ET). Electronically Signed: Jimi Avendano MD at 9:24 EDT ,
--- NOTE | 2023-11-10 08:19 | CT_ITS ---
STUDY: CT BRAIN WITHOUT CONTRAST REASON FOR EXAM: Male, 88 years old. Head injury due to a fall. RADIATION DOSAGE (If Supplied By Facility): CTDIvol = ( 44.99 ) mGy, DLP = ( 1490.98 ) mGycm TECHNIQUE: Transaxial CT imaging of the brain was performed without administration of intravenous contrast material. Individualized dose optimization techniques were used for this CT. COMPARISON: Comparison is made with prior examination dated February 05, 2020. FINDINGS: Scalp hematoma overlying the right frontal bone. Normal calvarium. There is mild cerebral atrophy with widening of the extra-axial spaces and ventricular dilatation. There are areas of decreased attenuation within the white matter tracts of the supratentorial brain, consistent with microvascular disease changes. 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 Normal brainstem. There is mild cerebellar atrophy. There is no intracranial hemorrhage. There are no findings of an acute ischemic infarction. Atherosclerotic calcification of the cavernous portions of the internal carotid arteries bilaterally. Partial opacification of the left maxillary sinus and the ethmoid sinuses bilaterally. CT/Brain/Head without Contrast IMPRESSION: Chronic involutional changes of the brain. Small scalp hematoma overlying the right frontal bone. Partial opacification of the left axillary sinus and ethmoid sinuses. Electronically Signed: Jimi Avendano MD at 9:28 EDT ,
[2023-11-10] MEDS: HYDROcodone Bitartrate/Apap 5/325 Tablet PO (08:32)
[2023-11-10 09:22] VITALS: BP 151/113; PULSE 62; RESP 14; O2SAT 96
[2023-11-10] MEDS: Haloperidol Lactate 5 MG/ML Vial 2 MG IV (10:43)
[2023-11-10 11:24] VITALS: BP 172/99; PULSE 76; RESP 17; O2SAT 99
[2023-11-10] MEDS: Ziprasidone IM 20 MG/ML VIAL 10 MG IM (12:05)
--- NOTE | 2023-11-10 12:39 | ED.RN ---
Patient very confused. He is not understanding why he needs to keep the C collar on. Patient keeps taking off the C collar and getting out of bed. Attends changed and patient redirection given. Unable to follow commands due to diagnosis of Alzheimer's. Patient redirected multiple times without success. Order for soft restraints left and right wrist. Non Violent Restraint documentation initiated.
[2023-11-10 13:00] VITALS: BP 128/73; PULSE 67; RESP 17
[2023-11-10 13:34] VITALS: BP 146/76; PULSE 72; RESP 18; TEMP 36.1; O2SAT 99
--- NOTE | 2023-11-10 14:50 | ED.RN ---
Pt taken out of restraints and documented on restraint flowsheet. EMS stated pt will remain in restraints for them.
== END 2023-11-10 14:52 | disposition short-term general hospital (02) ==
LOC: ED 08:23
PROVIDERS: Emergency Provider Emergency Medicine; PCP Family Medicine; Visit Provider Emergency Medicine
DX: S12.100A Unspecified displaced fracture of second cervical vertebra, initial encounter for closed fracture (principal); F02.80 Dementia in other diseases classified elsewhere, unspecified severity, without behavioral disturbance, psychotic disturbance, mood disturbance, and anxiety; Z87.891 Personal history of nicotine dependence; W19.XXXA Unspecified fall, initial encounter; Y92.129 Unspecified place in nursing home as the place of occurrence of the external cause; E78.5 Hyperlipidemia, unspecified; I10 Essential (primary) hypertension; Z79.899 Other long term (current) drug therapy; N40.0 Benign prostatic hyperplasia without lower urinary tract symptoms; Z90.49 Acquired absence of other specified parts of digestive tract
CPT/HCPCS: 70450; 72125; 99283